=== PATIENT | male | born 1985 | race Caucasian/White ===

== ENCOUNTER 2017-11-02 14:01 | Emergency (ER) | payer OTHER ==
[2017-11-02] MEDS ORDERED: IBUPROFEN 400 MG TAB PO STA (14:33)
[2017-11-02] MEDS ORDERED: ACETAMINOPHEN TAB 500 MG TAB PO STA (14:33)
[2017-11-02] MEDS ORDERED: SODIUM CHLORIDE 0.9% 1,000 ML IV STA (14:33)
--- NOTE | 2017-11-02 14:33 | ED ---
Syncope HPI - General Chief Complaint: Syncope Stated Complaint: Fever Time Seen by Provider: 11/02/17 14:32 Source: patient Mode of arrival: ambulatory Limitations: no limitations - History of Present Illness Initial Comments: Patient presents with lightheadedness, near-syncope. He has a history of cardio neurogenic syncope. He also states that he was recently diagnosed with the flu. He is taking Tamiflu. He has had high fevers and chills for couple days. He has no belly or back pain. He has no chest pain or tightness. He has no focal weakness. He is tolerating orotate. He has no neck pain or stiffness. He has no pain or swelling in the arms or legs. - Related Data Home Medications Medication Instructions Recorded Confirmed Ondansetron HCl [Zofran] 4 mg PO TID PRN 11/02/17 11/02/17 Oseltamivir [Tamiflu] 75 mg PO BID 11/02/17 11/02/17 Allergies Allergy/AdvReac Type Severity Reaction Status Date / Time No Known Allergies Allergy Verified 11/02/17 15:00 Review of Systems ROS Statement: Those systems with pertinent positive or pertinent negative responses have been documented in the HPI. ROS Other: All systems not noted in ROS Statement are negative. Past Medical History Past Medical History: Heart Failure Additional Past Medical History / Comment(s): dinora robles. heart issues History of Any Multi-Drug Resistant Organisms: None Reported Past Surgical History: AICD, Pacemaker Past Psychological History: No Psychological Hx Reported Smoking Status: Never smoker Past Alcohol Use History: None Reported Past Drug Use History: None Reported General Exam Limitations: no limitations General appearance: alert, in no apparent distress Head exam: Present: atraumatic, normocephalic, normal inspection Eye exam: Present: normal appearance, PERRL, EOMI. Absent: scleral icterus, conjunctival injection, periorbital swelling ENT exam: Present: normal exam, mucous membranes moist Neck exam: Present: normal inspection. Absent: tenderness, meningismus, lymphadenopathy Respiratory exam: Present: normal lung sounds bilaterally. Absent: respiratory distress, wheezes, rales, rhonchi, stridor Cardiovascular Exam: Present: regular rate, normal rhythm, normal heart sounds. Absent: systolic murmur, diastolic murmur, rubs, gallop, clicks GI/Abdominal exam: Present: soft, normal bowel sounds. Absent: distended, tenderness, guarding, rebound, rigid Extremities exam: Present: normal inspection, full ROM, normal capillary refill. Absent: tenderness, pedal edema, joint swelling, calf tenderness Back exam: Present: normal inspection Neurological exam: Present: alert, oriented X3, CN II-XII intact Psychiatric exam: Present: normal affect, normal mood Skin exam: Present: warm, dry, intact, normal color. Absent: rash Course Vital Signs 11/02/17 11/02/17 14:11 15:18 Temperature 100.9 F H Pulse Rate 85 87 Respiratory 20 18 Rate Blood Pressure 126/75 124/74 O2 Sat by Pulse 96 96 Oximetry EKG Findings - EKG Comments: EKG Findings:: Twelve-lead EKG shows ventricular rate 82 bpm, slightly prolonged TX interval, normal QRS complex is, no ST elevation or depression, interpreted by me as sinus rhythm with first-degree AV block. Medical Decision Making - Medical Decision Making Patient is reevaluated by myself. His workup is negative. He is having no symptoms at this time. I offered him admission, but he states he would prefer to go home. He will follow-up as an outpatient. - Lab Data Result diagrams: 11/02/17 14:44 11/02/17 14:44 Lab Results 11/02/17 11/02/17 11/02/17 Range/Units 14:44 14:44 14:44 WBC 6.4 (3.8-10.6) k/uL RBC 5.42 (4.30-5.90) m/uL Hgb 15.8 (13.0-17.5) gm/dL Hct 44.4 (39.0-53.0) % MCV 81.9 (80.0-100.0) fL MCH 29.1 (25.0-35.0) pg MCHC 35.6 (31.0-37.0) g/dL RDW 13.4 (11.5-15.5) % Plt Count 188 (150-450) k/uL Neutrophils % 64 % Lymphocytes % 20 % Monocytes % 12 % Eosinophils % 1 % Basophils % 0 % Neutrophils # 4.1 (1.3-7.7) k/uL Lymphocytes # 1.3 (1.0-4.8) k/uL Monocytes # 0.8 (0-1.0) k/uL Eosinophils # 0.1 (0-0.7) k/uL Basophils # 0.0 (0-0.2) k/uL PT 10.4 (9.0-12.0) sec INR 1.1 (<1.2) APTT 25.1 (22.0-30.0) sec Sodium 141 (137-145) mmol/L Potassium 4.1 (3.5-5.1) mmol/L Chloride 100 (98-107) mmol/L Carbon Dioxide 26 (22-30) mmol/L Anion Gap 15 mmol/L BUN 16 (9-20) mg/dL Creatinine 0.85 (0.66-1.25) mg/dL Est GFR (CKD-EPI)AfAm >90 (>60 ml/min/1.73 sqM) Est GFR (CKD-EPI)NonAf >90 (>60 ml/min/1.73 sqM) Glucose 91 (74-99) mg/dL Calcium 9.1 (8.4-10.2) mg/dL Magnesium 1.8 (1.6-2.3) mg/dL Total Bilirubin 0.8 (0.2-1.3) mg/dL AST 29 (17-59) U/L ALT 43 (21-72) U/L Alkaline Phosphatase 67 (38-126) U/L Troponin I (0.000-0.034) ng/mL Total Protein 7.6 (6.3-8.2) g/dL Albumin 4.4 (3.5-5.0) g/dL Urine Color Urine Appearance (Clear) Urine pH (5.0-8.0) Ur Specific [place] (1.001-1.035) Urine Protein (Negative) Urine Glucose (UA) (Negative) Urine Ketones (Negative) Urine Blood (Negative) Urine Nitrite (Negative) Urine Bilirubin (Negative) Urine Urobilinogen (<2.0) mg/dL Ur Leukocyte Esterase (Negative) 11/02/17 11/02/17 Range/Units 14:44 15:13 WBC (3.8-10.6) k/uL RBC (4.30-5.90) m/uL Hgb (13.0-17.5) gm/dL Hct (39.0-53.0) % MCV (80.0-100.0) fL MCH (25.0-35.0) pg MCHC (31.0-37.0) g/dL RDW (11.5-15.5) % Plt Count (150-450) k/uL Neutrophils % % Lymphocytes % % Monocytes % % Eosinophils % % Basophils % % Neutrophils # (1.3-7.7) k/uL Lymphocytes # (1.0-4.8) k/uL Monocytes # (0-1.0) k/uL Eosinophils # (0-0.7) k/uL Basophils # (0-0.2) k/uL PT (9.0-12.0) sec INR (<1.2) APTT (22.0-30.0) sec Sodium (137-145) mmol/L Potassium (3.5-5.1) mmol/L Chloride (98-107) mmol/L Carbon Dioxide (22-30) mmol/L Anion Gap mmol/L BUN (9-20) mg/dL Creatinine (0.66-1.25) mg/dL Est GFR (CKD-EPI)AfAm (>60 ml/min/1.73 sqM) Est GFR (CKD-EPI)NonAf (>60 ml/min/1.73 sqM) Glucose (74-99) mg/dL Calcium (8.4-10.2) mg/dL Magnesium (1.6-2.3) mg/dL Total Bilirubin (0.2-1.3) mg/dL AST (17-59) U/L ALT (21-72) U/L Alkaline Phosphatase (38-126) U/L Troponin I <0.012 (0.000-0.034) ng/mL Total Protein (6.3-8.2) g/dL Albumin (3.5-5.0) g/dL Urine Color Yellow Urine Appearance Clear (Clear) Urine pH 5.5 (5.0-8.0) Ur Specific [place] 1.033 (1.001-1.035) Urine Protein Trace H (Negative) Urine Glucose (UA) Negative (Negative) Urine Ketones Negative (Negative) Urine Blood Negative (Negative) Urine Nitrite Negative (Negative) Urine Bilirubin Negative (Negative) Urine Urobilinogen 2.0 (<2.0) mg/dL Ur Leukocyte Esterase Negative (Negative) Disposition Clinical Impression: Vasovagal syncope, Dehydration Disposition: HOME SELF-CARE Condition: Good Instructions: Viral Syndrome (ED) Is patient prescribed a controlled substance at d/c from ED?: No Referrals: Jose Farooq DO [Primary Care Provider] - 1-2 days Casimiro Francis MD [STAFF PHYSICIAN] - 1-2 days
[2017-11-02 15:00] LABS: Basophils % (A) 0 %; Eosinophils # (A) 0.1 k/uL (0-0.7); Eosinophils % (A) 1 %; HCT 44.4 % (39.0-53.0); HGB 15.8 gm/dL (13.0-17.5); Lymphocytes # (A) 1.3 k/uL (1.0-4.8); Lymphocytes % (A) 20 %; MCH 29.1 pg (25.0-35.0); MCHC 35.6 g/dL (31.0-37.0); MCV 81.9 fL (80.0-100.0); Mean Platelet Volume 7.6; Monocytes # (A) 0.8 k/uL (0-1.0); Monocytes % (A) 12 %; Neutrophils # (A) 4.1 k/uL (1.3-7.7); Neutrophils % (A) 64 %; Platelet Count 188 k/uL (150-450); RBC 5.42 m/uL (4.30-5.90); RDW 13.4 % (11.5-15.5); WBC 6.4 k/uL (3.8-10.6)
[2017-11-02 15:08] LABS: INR 1.1 (<1.2); Partial Thromboplastin Time 25.1 sec (22.0-30.0); Prothrombin Time 10.4 sec (9.0-12.0)
[2017-11-02 15:19] VITALS: RESP 18
[2017-11-02 15:22] LABS: Appearance,Urine Clear (Clear); Bilirubin,Urine Negative (Negative); Blood,Urine Negative (Negative); Color,Urine Yellow; Glucose,Urine (UA) Negative (Negative); Ketones,Urine Negative (Negative); Leukocyte Esterase,Urine Negative (Negative); Nitrite,Urine Negative (Negative); PH, Urine 5.5 (5.0-8.0); Protein,Urine Trace (Negative); Specific Gravity,Urine 1.033 (1.001-1.035)
--- NOTE | 2017-11-02 15:27 | XR ---
EXAMINATION TYPE: XR chest 2V DATE OF EXAM: 11/02/2017 COMPARISON: NONE HISTORY: Chest pain, syncope and cough TECHNIQUE: Frontal and lateral views of the chest are obtained. FINDINGS: There is no focal air space opacity, pleural effusion, or pneumothorax seen. The cardiac silhouette size is within normal limits. Pacemaker is present in the right pectoral region, leads are present in the right atrium and ventricle. There may be a slight spinal curvature. The osseous stru ctures are intact. IMPRESSION: No acute cardiopulmonary process.
[2017-11-02 15:35] LABS: ALT 43 U/L (21-72); AST 29 U/L (17-59); Albumin 4.4 g/dL (3.5-5.0); Alkaline Phosphatase 67 U/L (38-126); Anion Gap 15 mmol/L; Blood Urea Nitrogen 16 mg/dL (9-20); Calcium 9.1 mg/dL (8.4-10.2); Carbon Dioxide 26 mmol/L (22-30); Chloride 100 mmol/L (98-107); Glucose 91 mg/dL (74-99); Magnesium 1.8 mg/dL (1.6-2.3); Potassium 4.1 mmol/L (3.5-5.1); Sodium 141 mmol/L (137-145); Total Bilirubin 0.8 mg/dL (0.2-1.3); Total Protein 7.6 g/dL (6.3-8.2)
[2017-11-02 16:20] VITALS: BP 122/68; PULSE 75; TEMP 97.6
== END 2017-11-02 16:06 | disposition home or self-care (01) ==
LOC: EC 14:01
DX: E86.0 Dehydration (principal); R55 Syncope and collapse; R50.9 Fever, unspecified; R42 Dizziness and giddiness; Z79.899 Other long term (current) drug therapy
CPT/HCPCS: 36415; 71046; 80053; 81003; 83735; 84484; 85025; 85610; 85730; 93005; 96360; 99284

== ENCOUNTER → 2018-09-20 | Outpatient (CLI) | payer OTHER ==
[2018-09-20 17:19] LABS: Anion Gap 9.9 mmol/L (4.00-12.00); Carbon Dioxide 30.1 mmol/L (21.6-31.8); Potassium 4.1 mmol/L (3.5-5.5)
== END | disposition home or self-care (01) ==
LOC: LABWHC1 10:08
PROVIDERS: ATTEND Otolaryngology
DX: Z51.81 Encounter for therapeutic drug level monitoring (principal); Z79.899 Other long term (current) drug therapy
CPT/HCPCS: 36415; 80051

== ENCOUNTER 2018-09-22 22:15 | Emergency (ER) | payer OTHER ==
[2018-09-22 22:25] VITALS: RESP 18; TEMP 98.4
--- NOTE | 2018-09-22 22:47 | ED ---
General Adult HPI - General Chief complaint: Abdominal Pain Stated complaint: Abd Pain Time Seen by Provider: 09/22/18 22:36 Source: patient, RN notes reviewed Mode of arrival: ambulatory Limitations: no limitations - History of Present Illness Initial comments: 33-year-old male presents emergency Department chief complaint of right-sided rib pain. Patient states that a fall a few weeks ago when he fell on his back and ice. Patient states he had right-sided rib pain but was manageable. Patient states pain is been increasing last few days especially with movement and deep inspiration. Patient states he tried to lay in the bathroom to alleviate symptoms states it yellow coughed and states he felt a large pop states she's had extreme pain on his right lateral ribs. Patient states that it's worse with movement worse with deep inspiration. Patient denies any abdominal pain including nausea vomiting diarrhea constipation. Patient denies any change in bowel habits including melena or hematochezia. No dysuria no hematuria. Patient has not taken anything today for the pain. - Related Data Home Medications Medication Instructions Recorded Confirmed Triamterene-Hctz 37.5-25Mg 1 cap PO DAILY 09/22/18 09/22/18 [Dyazide 37.5-25 Capsule] Previous Rx's Medication Instructions Recorded Ibuprofen [Motrin] 600 mg PO Q8HR PRN #30 tab 09/22/18 Allergies Allergy/AdvReac Type Severity Reaction Status Date / Time egg AdvReac Nausea & Verified 09/22/18 22:39 Vomiting Review of Systems ROS Statement: Those systems with pertinent positive or pertinent negative responses have been documented in the HPI. ROS Other: All systems not noted in ROS Statement are negative. Past Medical History Past Medical History: Heart Failure Additional Past Medical History / Comment(s): dinora robles. heart issues History of Any Multi-Drug Resistant Organisms: None Reported Past Surgical History: AICD, Pacemaker Past Psychological History: No Psychological Hx Reported Smoking Status: Never smoker Past Alcohol Use History: None Reported Past Drug Use History: None Reported General Exam Limitations: no limitations General appearance: alert, in no apparent distress Head exam: Present: atraumatic, normocephalic, normal inspection Eye exam: Present: normal appearance, PERRL, EOMI. Absent: scleral icterus, conjunctival injection, periorbital swelling ENT exam: Present: normal exam, normal oropharynx, mucous membranes moist Neck exam: Present: normal inspection, full ROM. Absent: tenderness, meningismus, lymphadenopathy Respiratory exam: Present: normal lung sounds bilaterally, chest wall tenderness (Monitor's right anterior lateral rib). Absent: respiratory distress, wheezes, rales, rhonchi, stridor Cardiovascular Exam: Present: regular rate, normal rhythm, normal heart sounds. Absent: systolic murmur, diastolic murmur, rubs, gallop, clicks GI/Abdominal exam: Present: soft, normal bowel sounds. Absent: distended, tenderness, guarding, rebound, rigid Back exam: Absent: CVA tenderness (R), CVA tenderness (L) Skin exam: Present: warm, dry, intact, normal color. Absent: rash Course Vital Signs 09/22/18 22:21 Temperature 98.4 F Pulse Rate 90 Respiratory 18 Rate Blood Pressure 134/92 O2 Sat by Pulse 96 Oximetry Medical Decision Making - Medical Decision Making 33-year-old male presented for right sided rib pain. Patient have a fall 2 weeks ago which she's had pain ever since to worsen after coughing tonight. There is no evidence of pneumothorax. Patient clinically represents rib fracture though no iris or fracture on x-ray. Patient we discharged with pain medication and close follow-up. Return parameters were discussed. Disposition Clinical Impression: Rib injury Disposition: HOME SELF-CARE Condition: Stable Instructions (If sedation given, give patient instructions): Rib Fracture (ED) Additional Instructions: Please return to the Emergency Department if symptoms worsen or any other concerns. Prescriptions: Ibuprofen [Motrin] 600 mg PO Q8HR PRN #30 tab PRN Reason: Pain Is patient prescribed a controlled substance at d/c from ED?: No Referrals: Jose Farooq DO [Primary Care Provider] - 1-2 days Time of Disposition: 23:04
--- NOTE | 2018-09-22 23:01 | XR ---
EXAM: XR Right Ribs and AP Chest, 3 or More Views CLINICAL HISTORY: ITS.REASON XR Reason: Pain TECHNIQUE: Frontal and oblique views of the right ribs and frontal view of the chest. COMPARISON: No relevant prior studies available. FINDINGS: Lungs: Unremarkable. No consolidation. Pleural space: Unremarkable. No pneumothorax. Heart: Unremarkable. No cardiomegaly. Mediastinum: Unremarkable. Bones/joints: Unremarkable. No acute fracture. IMPRESSION: Normal right rib x-rays.
[2018-09-22] MEDS: ACET/COD 300 MG/30 MG STARTER PACK 6 TAB BTL PO STA (23:18)
[2018-09-22 23:24] VITALS: BP 137/82; PULSE 84
== END 2018-09-22 23:23 | disposition home or self-care (01) ==
LOC: EC 22:15
DX: S29.9XXA Unspecified injury of thorax, initial encounter (principal); I50.9 Heart failure, unspecified; Z79.899 Other long term (current) drug therapy; Z91.012 Allergy to eggs; Z95.810 Presence of automatic (implantable) cardiac defibrillator; W19.XXXA Unspecified fall, initial encounter; Y93.29 Activity, other involving ice and snow
CPT/HCPCS: 99284

== ENCOUNTER 2019-06-29 16:54 | Inpatient (IN) | payer OTHER ==
[2019-06-29] MEDS ORDERED: SODIUM CHLORIDE 0.9% 1,000 ML IV STA (17:01)
[2019-06-29 17:18] LABS: Basophils # (A) 0.2 k/uL (0-0.2); Basophils % (A) 2 %; Eosinophils # (A) 0.2 k/uL (0-0.7); Eosinophils % (A) 3 %; HCT 43.3 % (39.0-53.0); HGB 15.7 gm/dL (13.0-17.5); Lymphocytes # (A) 2.1 k/uL (1.0-4.8); Lymphocytes % (A) 24 %; MCH 30.5 pg (25.0-35.0); MCHC 36.2 g/dL (31.0-37.0); MCV 84.3 fL (80.0-100.0); Mean Platelet Volume 8.3; Monocytes # (A) 0.4 k/uL (0-1.0); Monocytes % (A) 5 %; Neutrophils # (A) 5.8 k/uL (1.3-7.7); Neutrophils % (A) 65 %; Platelet Count 226 k/uL (150-450); RBC 5.14 m/uL (4.30-5.90); RDW 13.1 % (11.5-15.5); WBC 8.9 k/uL (3.8-10.6)
[2019-06-29 17:31] LABS: D-Dimer 0.22 mg/L FEU (<0.60); Partial Thromboplastin Time 22.5 sec (22.0-30.0); Prothrombin Time 10.3 sec (9.0-12.0)
[2019-06-29 17:36] LABS: ALT 36 U/L (4-49); AST 28 U/L (17-59); African American GFR (CKD) >90 (>60 ml/min/1.73 sqM); Albumin 4.5 g/dL (3.5-5.0); Alkaline Phosphatase 56 U/L (38-126); Anion Gap 9 mmol/L; Blood Urea Nitrogen 23 mg/dL (9-20); Calcium 9.5 mg/dL (8.4-10.2); Carbon Dioxide 26 mmol/L (22-30); Chloride 104 mmol/L (98-107); Creatine Kinase 115 U/L (55-170); Glucose 155 mg/dL (74-99); Non-African American GFR(CKD) >90 (>60 ml/min/1.73 sqM); Phosphorus 4.2 mg/dL (2.5-4.5); Sodium 139 mmol/L (137-145); Total Bilirubin 0.5 mg/dL (0.2-1.3); Total Protein 7.9 g/dL (6.3-8.2)
--- NOTE | 2019-06-29 17:40 | ED ---
Syncope HPI - General Chief Complaint: Syncope Stated Complaint: Syncope Time Seen by Provider: 06/29/19 17:01 Source: EMS, RN notes reviewed, old records reviewed Mode of arrival: EMS Limitations: no limitations - History of Present Illness Initial Comments: This is a 34-year-old male here for evaluation of syncopal event patient has a prolonged history of neurocardiogenic multiple syncopal episodes year. Patient has chest pain involved no current chest pain. No recent travel history no sick contacts. No pain in the legs he states he believes he was swinging uneventfully was also MD Complaint: loss of consciousness, collapsed -: hour(s) Prodromal Symptoms: palpitations, shortness of breath, diaphoresis -: second(s) (unknown) Witnessed: yes - by bystander Injuries Sustained Associated with Event: None Current Symptoms: back to baseline History: previous syncopal episode, pacemaker Context: during exertion (after shower) Treatments Prior to Arrival: none - Related Data Home Medications Medication Instructions Recorded Confirmed Triamterene-Hctz 37.5-25Mg 1 cap PO DAILY 09/22/18 06/29/19 [Dyazide 37.5-25 Capsule] Ibuprofen [Motrin Ib] 400 mg PO Q6H PRN 06/29/19 06/29/19 Loratadine [Claritin] 10 mg PO DAILY PRN 06/29/19 06/29/19 Allergies Allergy/AdvReac Type Severity Reaction Status Date / Time egg AdvReac Nausea & Verified 06/29/19 18:50 Vomiting Review of Systems ROS Statement: Those systems with pertinent positive or pertinent negative responses have been documented in the HPI. ROS Other: All systems not noted in ROS Statement are negative. Past Medical History Past Medical History: Heart Failure Additional Past Medical History / Comment(s): dinora robles. heart issues History of Any Multi-Drug Resistant Organisms: None Reported Past Surgical History: AICD, Pacemaker Past Psychological History: No Psychological Hx Reported Smoking Status: Never smoker Past Alcohol Use History: None Reported Past Drug Use History: None Reported General Exam Limitations: no limitations General appearance: alert, in no apparent distress Head exam: Present: atraumatic, normocephalic, normal inspection Eye exam: Present: normal appearance, PERRL, EOMI. Absent: scleral icterus, conjunctival injection, periorbital swelling ENT exam: Present: normal exam, mucous membranes moist Neck exam: Present: normal inspection. Absent: tenderness, meningismus, lymphadenopathy Respiratory exam: Present: normal lung sounds bilaterally. Absent: respiratory distress, wheezes, rales, rhonchi, stridor Cardiovascular Exam: Present: regular rate, normal rhythm, normal heart sounds. Absent: systolic murmur, diastolic murmur, rubs, gallop, clicks GI/Abdominal exam: Present: soft, normal bowel sounds. Absent: distended, tenderness, guarding, rebound, rigid Extremities exam: Present: normal inspection, full ROM, normal capillary refill. Absent: tenderness, pedal edema, joint swelling, calf tenderness Back exam: Present: normal inspection Neurological exam: Present: alert, oriented X3, CN II-XII intact Psychiatric exam: Present: normal affect, normal mood Skin exam: Present: warm, dry, intact, normal color. Absent: rash Course Vital Signs 06/29/19 06/29/19 16:59 17:01 Temperature 97.1 F L Pulse Rate 76 Pulse Rate [ 76 [employer] Rep[employer]ician ] Respiratory 16 Rate Blood Pressure 128/72 O2 Sat by Pulse 98 Oximetry - Reevaluation(s) Reevaluation #1: 06/29/19 17:47 Medical record is reviewed Reevaluation #2: 06/29/19 18:54 Patient is without recurrence. Syncopal event Reevaluation #3: 06/29/19 18:54 Pacemaker was interrogated here in the ER doesn't look like patient is experi encing episodes of ventricular tachycardia - Consultations Consultation #1: Social with Dr. Block who was agreeable for admission EKG Findings - EKG Comments: EKG Findings:: EKG shows sinus rhythm rate of 71, OR 232, QRS 232, QTC 450 Medical Decision Making - Medical Decision Making 32 male here with syncopal event. Possibly related to ventricular tachycardia. Patient will be admitted for cardiac evaluation telemetry and further management - Lab Data Result diagrams: 06/29/19 17:01 06/29/19 17: Lab Results 06/29/19 06/29/19 06/29/19 Range/Units 17:01 17: 17: WBC 8.9 (3.8-10.6) k/uL RBC 5.14 (4.30-5.90) m/uL Hgb 15.7 (13.0-17.5) gm/dL Hct 43.3 (39.0-53.0) % MCV 84.3 (80.0-100.0) fL MCH 30.5 (25.0-35.0) pg MCHC 36.2 (31.0-37.0) g/dL RDW 13.1 (11.5-15.5) % Plt Count 226 (150-450) k/uL Neutrophils % 65 % Lymphocytes % 24 % Monocytes % 5 % Eosinophils % 3 % Basophils % 2 % Neutrophils # 5.8 (1.3-7.7) k/uL Lymphocytes # 2.1 (1.0-4.8) k/uL Monocytes # 0.4 (0-1.0) k/uL Eosinophils # 0.2 (0-0.7) k/uL Basophils # 0.2 (0-0.2) k/uL PT 10.3 (9.0-12.0) sec INR 1.0 (<1.2) APTT 22.5 (22.0-30.0) sec D-Dimer 0.22 (<0.60) mg/L FEU Sodium 139 (137-145) mmol/L Potassium 4.0 (3.5-5.1) mmol/L Chloride 104 (98-107) mmol/L Carbon Dioxide 26 (22-30) mmol/L Anion Gap 9 mmol/L BUN 23 H (9-20) mg/dL Creatinine 0.91 (0.66-1.25) mg/dL Est GFR (CKD-EPI)AfAm >90 (>60 ml/min/1.73 sqM) Est GFR (CKD-EPI)NonAf >90 (>60 ml/min/1.73 sqM) Glucose 155 H (74-99) mg/dL Calcium 9.5 (8.4-10.2) mg/dL Phosphorus 4.2 (2.5-4.5) mg/dL Magnesium 2.0 (1.6-2.3) mg/dL Total Bilirubin 0.5 (0.2-1.3) mg/dL AST 28 (17-59) U/L ALT 36 (4-49) U/L Alkaline Phosphatase 56 (38-126) U/L Creatine Kinase 115 (55-170) U/L Troponin I (0.000-0.034) ng/mL NT-Pro-B Natriuret Pep pg/mL Total Protein 7.9 (6.3-8.2) g/dL Albumin 4.5 (3.5-5.0) g/dL 06/29/19 06/29/19 Range/Units 17:01 17:01 WBC (3.8-10.6) k/uL RBC (4.30-5.90) m/uL Hgb (13.0-17.5) gm/dL Hct (39.0-53.0) % MCV (80.0-100.0) fL MCH (25.0-35.0) pg MCHC (31.0-37.0) g/dL RDW (11.5-15.5) % Plt Count (150-450) k/uL Neutrophils % % Lymphocytes % % Monocytes % % Eosinophils % % Basophils % % Neutrophils # (1.3-7.7) k/uL Lymphocytes # (1.0-4.8) k/uL Monocytes # (0-1.0) k/uL Eosinophils # (0-0.7) k/uL Basophils # (0-0.2) k/uL PT (9.0-12.0) sec INR (<1.2) APTT (22.0-30.0) sec D-Dimer (<0.60) mg/L FEU Sodium (137-145) mmol/L Potassium (3.5-5.1) mmol/L Chloride (98-107) mmol/L Carbon Dioxide (22-30) mmol/L Anion Gap mmol/L BUN (9-20) mg/dL Creatinine (0.66-1.25) mg/dL Est GFR (CKD-EPI)AfAm (>60 ml/min/1.73 sqM) Est GFR (CKD-EPI)NonAf (>60 ml/min/1.73 sqM) Glucose (74-99) mg/dL Calcium (8.4-10.2) mg/dL Phosphorus (2.5-4.5) mg/dL Magnesium (1.6-2.3) mg/dL Total Bilirubin (0.2-1.3) mg/dL AST (17-59) U/L ALT (4-49) U/L Alkaline Phosphatase (38-126) U/L Creatine Kinase (55-170) U/L Troponin I <0.012 (0.000-0.034) ng/mL NT-Pro-B Natriuret Pep 59 pg/mL Total Protein (6.3-8.2) g/dL Albumin (3.5-5.0) g/dL Critical Care Time Critical Care Time: Yes Total Critical Care Time: 31 Disposition Clinical Impression: Syncope, Ventricular tachycardia Disposition: ADMITTED IP TO THIS [facility] Condition: Undetermined Is patient prescribed a controlled substance at d/c from ED?: No Referrals: Jose Farooq DO [Primary Care Provider] - 1-2 days
[2019-06-29] MEDS ORDERED: METOPROLOL TARTRATE 25 MG TAB PO SCH (21:00)
[2019-06-29 21:31] VITALS: RESP 18
[2019-06-30] MEDS ORDERED: ASPIRIN 325 MG TAB PO SCH (09:00)
[2019-06-30] MEDS ORDERED: ATORVASTATIN 80 MG TAB PO SCH (09:00)
[2019-06-30] MEDS ORDERED: TRIAMTERENE-HCTZ 37.5-25MG 1 EACH CAP PO SCH (09:00)
--- NOTE | 2019-06-30 10:56 | P.HPIM ---
History of Present Illness 32-year-old male with a known history of neurogenic syncope came in after a syncopal episode which was preceded by extreme lightheadedness for about 20 minutes. Patient has a pacemaker because of his neurocardiogenic syncope. Patient does have Mnire's disease as well for which patient is on the diuretic therapy which was recently increased couple weeks ago to twice a day by sample sawyer because of his elevated blood pressure in the clinic. His blood pressures normal here. But I believe this may have contributed to his syncope. His normal sinus rhythm on the EKG that was done here and patient is normal sinus rhythm on the telemetry. Patient has a first-degree AV block which is well-known and the patient already has a pacemaker. Patient pacemaker is being interrogated and if required patient will undergo echocardiogram if cardiology believes he will need one. His syncope is mostly because of hypotension from his increased diuretic therapy. Patient was asked to check his blood pressure twice a day for possible with a manual blood pressure cuff and document the readings and extensive counseling regarding checking the blood pressure was provided. Asked him to maintain a blood pressure diary and take it to PCP. Cardiology. Patient will be switched back to his previous dose of diuretics. Review of Systems REVIEW OF SYSTEMS: CONSTITUTIONAL: No fever, no malaise, no fatigue. HEENT: No recent visual problems or hearing problems. Denied any sore throat. CARDIOVASCULAR: No chest pain, orthopnea, PND, no palpitations. PULMONARY: No shortness of breath, no cough, no hemoptysis. GASTROINTESTINAL: No diarrhea, no nausea, no vomiting, no abdominal pain. NEUROLOGICAL: No headaches, no weakness, no numbness. HEMATOLOGICAL: Denies any bleeding or petechiae. GENITOURINARY: Denies any burning micturition, frequency, or urgency. MUSCULOSKELETAL/RHEUMATOLOGICAL: Denies any joint pain, swelling, or any muscle pain. ENDOCRINE: Denies any polyuria or polydipsia. The rest of the 14-point review of systems is negative. Past Medical History Past Medical History: Heart Failure Additional Past Medical History / Comment(s): meniere's disease which contributes to vertigo and history of falls. 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 denies history of heart failure. VRI-Rsjryn-Unillouyy purpura-affected intestines at the age of 9, intestines were tangled -resolved on its own after a few months. This caused the damage in his heart which lead to a pacemaker in 2001 with device change in 2007 ([facility]). Theorized by doctors HSP brought on by strep throat. History of Any Multi-Drug Resistant Organisms: None Reported Past Surgical History: Pacemaker Additional Past Surgical History / Comment(s): pacemaker 2001 with device change in 2007 [facility]. Oseas states he does not have an AICD Past Anesthesia/Blood Transfusion Reactions: No Reported Reaction Additional Past Anesthesia/Blood Transfusion Reaction / Comment(s): no previous blood transfusions Type of Cardiac Device: Permanent Pacemaker Device Placement Date:: 09/2007 Past Psychological History: No Psychological Hx Reported Smoking Status: Never smoker Past Alcohol Use History: None Reported Past Drug Use History: None Reported - Past Family History Father Family Medical History: Diabetes Mellitus Brother(s) Family Medical History: Diabetes Mellitus Mother Family Medical History: Deep Vein Thrombosis (DVT) Sister(s) Additional Family Medical History / Comment(s): vtach Medications and Allergies Home Medications Medication Instructions Recorded Confirmed Type Triamterene-Hctz 37.5-25Mg 1 cap PO DAILY 09/22/18 06/29/19 History [Dyazide 37.5-25 Capsule] Ibuprofen [Motrin Ib] 400 mg PO Q6H PRN 06/29/19 06/29/19 History Loratadine [Claritin] 10 mg PO DAILY PRN 06/29/19 06/29/19 History Allergies Allergy/AdvReac Type Severity Reaction Status Date / Time egg AdvReac Nausea & Verified 06/29/19 18:50 Vomiting Physical Exam Vitals: Vital Signs Temp Pulse Pulse Resp BP BP Pulse Ox 06/30/19 07:41 97.7 F 67 18 126/77 96 06/30/19 04:00 97.4 F L 66 18 121/72 99 06/29/19 23:31 98 F 63 18 112/57 97 06/29/19 20:31 97.4 F L 69 18 140/84 97 06/29/19 19:04 98.3 F 76 16 128/69 98 06/29/19 17:01 76 06/29/19 16:59 97.1 F L 76 16 128/72 98 Intake and Output 06/29/19 06/30/19 06/30/19 22:59 06:59 14:59 Intake Total 118 Balance 118 Intake: Oral 118 Other: Voiding Method Toilet # Voids 1 6 Weight 114.305 kg 111.8 kg PHYSICAL EXAMINATION: GENERAL: The patient is alert and oriented x3, not in any acute distress. Obese HEENT: Pupils are round and equally reacting to light. EOMI. No scleral icterus. No conjunctival pallor. Normocephalic, atraumatic. No pharyngeal erythema. No thyromegaly. CARDIOVASCULAR: S1 and S2 present. No murmurs, rubs, or gallops. PULMONARY: Chest is clear to auscultation, no wheezing or crackles. ABDOMEN: Soft, nontender, nondistended, normoactive bowel sounds. No palpable organomegaly. MUSCULOSKELETAL: No joint swelling or deformity. EXTREMITIES: No cyanosis, clubbing, or pedal edema. NEUROLOGICAL: Gross neurological examination did not reveal any focal deficits. SKIN: No rashes. Results CBC & Chem 7: 06/29/19 17:01 06/29/19 17:01 Labs: Abnormal Lab Results - Last 24 Hours (Table) 06/29/19 Range/Units 17:01 BUN 23 H (9-20) mg/dL Glucose 155 H (74-99) mg/dL Thrombosis Risk Factor Assmnt - Choose All That Apply Any of the Below Risk Factors Present?: No Other Risk Factors: Yes Each Risk Factor Represents 3 Points: Family history of DVT/PE Other congenital or acquired thrombophilia - If yes, enter type in comment: No Thrombosis Risk Factor Assessment Total Risk Factor Score: 3 Thrombosis Risk Factor Assessment Level: Moderate Risk Assessment and Plan Plan: -Syncope most probably related to low blood pressure. Patient will be switched back to his previous dose of diuretic therapy. Patient undergo pacemaker evaluation. Cardiology evaluated the patient after pacemaker evaluation of there are no significant issues with his heart rhythm patient will be discharged today. -History of Mnire's disease for which patient is on diuretics which she will continue -Hypertension -History of Henoch-Schnlein purpura -First-degree AV block patient has a pacemaker
--- NOTE | 2019-06-30 10:56 | P.DS ---
Providers Date of admission: 06/29/19 18:46 Attending physician: Tatyana Block Consults: 06/29/19 18:46 Consult Physician Urgent Consulting Provider: Won Srinivasan Consult Reason/Comments: VT Do you want consulting provider notified?: Yes Primary care physician: Jose Farooq Hospital Course: Please of her dementia for further details Patient Condition at Discharge: Undetermined Plan - Discharge Summary New Discharge Prescriptions: Continue Triamterene-Hctz 37.5-25Mg [Dyazide 37.5-25 Capsule] 1 cap PO DAILY Loratadine [Claritin] 10 mg PO DAILY PRN PRN Reason: Cold Symptoms Ibuprofen [Motrin Ib] 400 mg PO Q6H PRN PRN Reason: Pain Discharge Medication List Triamterene-Hctz 37.5-25Mg [Dyazide 37.5-25 Capsule] 1 cap PO DAILY 09/22/18 [History] Ibuprofen [Motrin Ib] 400 mg PO Q6H PRN 06/29/19 [History] Loratadine [Claritin] 10 mg PO DAILY PRN 06/29/19 [History] Follow up Appointment(s)/Referral(s): Jose Farooq DO [Primary Care Provider] - 3 Days Discharge Disposition: HOME SELF-CARE
[2019-06-30 12:19] VITALS: BP 131/67; PULSE 56; TEMP 97.9
--- NOTE | 2019-06-30 14:11 | P.CRDCN ---
History of Present Illness History of present illness: HISTORY OF PRESENTING ILLNESS This is a pleasant 34-year-old male past medical history significant for neurocardiogenic syncope status post permanent pacemaker implantation and Mnire's disease. He follows in the office with Dr. Srinivasan. We have been asked to see in consultation for syncope. He states yesterday he was at home and he took a 20 minute hot bath. Upon getting out of the bathtub he started feeling acutely lightheaded like he was going to pass out. He states he was on the phone with his during this episode. He denies having symptoms of chest pain, shortness of breath or palpitations throughout this episode. He did sit down at one point because he didn't think he was close to passing out. When she sat down and he did eventually pass out falling forward into the shower. According to the patient and the who was on the phone with him he was out for approximately 30 seconds. Once he came to he felt diaphoretic and felt palpitations. Since arriving at the hospital she had no further symptoms of feeling lightheaded. Blood pressure on arrival was stable. He is seen and examined resting comfortably in bed in no acute distress. DIAGNOSTICS EKG reveals sinus mechanism with first-degree AV block. Laboratory reviewed, CBC unremarkable, d-dimer 0.22, sodium 139, potassium 4.0, creatinine 0.91, magnesium 2.0, cardiac enzymes negative 3 and proBNP 59. Current cardiac medications include Dyazide 37.5/25 mg daily. REVIEW OF SYSTEMS At the time of my exam: CONSTITUTIONAL: Denies fever or chills. CARDIOVASCULAR: Denies chest pain, shortness of breath, orthopnea, PND or palpitations. RESPIRATORY: Denies cough. GASTROINTESTINAL: Denies abdominal pain, diarrhea, constipation, nausea or vomiting. MUSCULOSKELETAL: Denies myalgias. NEUROLOGIC: Denies numbness, tingling or weakness. ENDOCRINE: Denies fatigue, weight change, polydipsia or polyurina. GENITOURINARY: Denies burning, hematuria or urgency with micturation. HEMATOLOGIC: Denies history of anemia or bleeding. PHYSICAL EXAMINATION Blood pressure 131/67 heart rate 56 afebrile and maintaining oxygen saturation on room air. CONSTITUTIONAL: No apparent distress. HEENT: Head is normocephalic. Pupils are equal, round. Sclerae anicteric. Mucous membranes of the mouth are moist. No JVD. No carotid bruit. CHEST EXAMINATION: Lungs are clear to auscultation. No chest wall tenderness is noted on palpation or with deep breathing. HEART EXAMINATION: Regular rate and rhythm. S1, S2 heard. No murmurs, gallops or rub. ABDOMEN: Soft, nontender. Positive bowel sounds. EXTREMITIES: 2+ peripheral pulses, no lower extremity edema and no calf tenderness. NEUROLOGIC EXAMINATION: Patient is awake, alert and oriented x3. ASSESSMENT Syncope History of neurocardiogenic syncope status post permanent pacemaker implantation Mnire's disease, maintained on Dyazide. He has been asymptomatic for approximately 10 months since beginning this medication PLAN An acute coronary event has been ruled out. Pacemaker interrogation reveals no evidence of arrhythmia. Telemetry tracings have been unremarkable. There is no acute arrhythmias noted for hospitalization or on pacemaker interrogation. D-dimer unremarkable. Syncope could be related to vasovagal reaction or hypotension considering he had just taken a hot bath. Follow-up in the office with Dr. Srinivasan upon discharge. Thank you kindly for this consultation. Nurse Practitioner note has been reviewed, I agree with a documented findings and plan of care. Patient was seen and examined. Past Medical History Past Medical History: Heart Failure Additional Past Medical History / Comment(s): meniere's disease which contributes to vertigo and history of falls. 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 denies history of heart failure. [id number]-Tcjaep-[id number] purpura-affected intestines at the age of 9, intestines were tangled -resolved on its own after a few months. This caused the damage in his heart which lead to a pacemaker in 2001 with device change in 2007 ([facility]). Theorized by doctors HSP brought on by strep throat. History of Any Multi-Drug Resistant Organisms: None Reported Past Surgical History: Pacemaker Additional Past Surgical History / Comment(s): pacemaker 2001 with device change in 2007 [facility]. Oseas states he does not have an AICD Past Anesthesia/Blood Transfusion Reactions: No Reported Reaction Additional Past Anesthesia/Blood Transfusion Reaction / Comment(s): no previous blood transfusions Type of Cardiac Device: Permanent Pacemaker Device Placement Date:: 09/2007 Past Psychological History: No Psychological Hx Reported Smoking Status: Never smoker Past Alcohol Use History: None Reported Past Drug Use History: None Reported - Past Family History Father Family Medical History: Diabetes Mellitus Brother(s) Family Medical History: Diabetes Mellitus Mother Family Medical History: Deep Vein Thrombosis (DVT) Sister(s) Additional Family Medical History / Comment(s): vtach Medications and Allergies Home Medications Medication Instructions Recorded Confirmed Type Triamterene-Hctz 37.5-25Mg 1 cap PO DAILY 09/22/18 06/29/19 History [Dyazide 37.5-25 Capsule] Ibuprofen [Motrin Ib] 400 mg PO Q6H PRN 06/29/19 06/29/19 History Loratadine [Claritin] 10 mg PO DAILY PRN 06/29/19 06/29/19 History Allergies Allergy/AdvReac Type Severity Reaction Status Date / Time egg AdvReac Nausea & Verified 06/29/19 18:50 Vomiting Physical Exam Vitals: Vital Signs Temp Pulse Pulse Resp BP BP Pulse Ox 06/30/19 12:00 97.9 F 56 L 18 131/67 94 L 06/30/19 07:41 97.7 F 67 18 126/77 96 06/30/19 04:00 97.4 F L 66 18 121/72 99 06/29/19 23:31 98 F 63 18 112/57 97 06/29/19 20:31 97.4 F L 69 18 140/84 97 06/29/19 19:04 98.3 F 76 16 128/69 98 06/29/19 17:01 76 06/29/19 16:59 97.1 F L 76 16 128/72 98 Intake and Output 06/29/19 06/30/19 06/30/19 22:59 06:59 14:59 Intake Total 718 Balance 718 Intake: Oral 718 Other: Voiding Method Toilet # Voids 1 6 3 Weight 114.305 kg 111.8 kg Results 06/29/19 17:01 06/29/19 17:01 Cardiac Enzymes 06/29/19 06/29/19 06/29/19 Range/Units 17:01 17:01 23:02 AST 28 (17-59) U/L Troponin I <0.012 <0.012 (0.000-0.034) ng/mL 06/30/19 Range/Units 05:51 AST (17-59) U/L Troponin I <0.012 (0.000-0.034) ng/mL Coagulation 06/29/19 Range/Units 17:01 PT 10.3 (9.0-12.0) sec APTT 22.5 (22.0-30.0) sec CBC 06/29/19 Range/Units 17:01 WBC 8.9 (3.8-10.6) k/uL RBC 5.14 (4.30-5.90) m/uL Hgb 15.7 (13.0-17.5) gm/dL Hct 43.3 (39.0-53.0) % Plt Count 226 (150-450) k/uL Comprehensive Metabolic Panel 06/29/19 Range/Units 17:01 Sodium 139 (137-145) mmol/L Potassium 4.0 (3.5-5.1) mmol/L Chloride 104 (98-107) mmol/L Carbon Dioxide 26 (22-30) mmol/L BUN 23 H (9-20) mg/dL Creatinine 0.91 (0.66-1.25) mg/dL Glucose 155 H (74-99) mg/dL Calcium 9.5 (8.4-10.2) mg/dL AST 28 (17-59) U/L ALT 36 (4-49) U/L Alkaline Phosphatase 56 (38-126) U/L Total Protein 7.9 (6.3-8.2) g/dL Albumin 4.5 (3.5-5.0) g/dL Intake and Output 06/29/19 06/30/19 06/30/19 22:59 06:59 14:59 Intake Total 718 Balance 718 Intake: Oral 718 Other: Voiding Method Toilet # Voids 1 6 3 Weight 114.305 kg 111.8 kg 06/29/19 17:01 06/29/19 17:01
--- NOTE | 2019-06-30 16:43 | ECHOF ---
Referral Reason:syncope MEASUREMENTS -------- HEIGHT: 182.9 cm WEIGHT: 111.1 kg BP: RVIDd: 3.4 cm (< 3.3) IVSd: 1.3 cm (0.6 - 1.1) LVIDd: 5.0 cm (3.9 - 5.3) LVPWd: 1.1 cm (0.6 - 1.1) IVSs: 1.6 cm LVIDs: 3.5 cm LVPWs: 1.4 cm LA Diam: 3.7 cm (2.7 - 3.8) LAESV Index (A-L): 25.28 ml/m Ao Diam: 3.2 cm (2.0 - 3.7) AV Cusp: 2.2 cm (1.5 - 2.6) LA Diam: 4.3 cm (2.7 - 3.8) MV EXCURSION: 23.601 mm (> 18.000) MV EF SLOPE: 119 mm/s (70 - 150) EPSS: 0.3 cm MV E Tono: 0.67 m/s MV DecT: 155 ms MV A Tono: 0.48 m/s MV E/A Ratio: 1.38 RAP: 5.00 mmHg RVSP: 23.88 mmHg FINDINGS -------- Paced rhythm. This was a technically good study. The left ventricular size is normal. There is mild concentric left ventricular hypertrophy. Overa ll left ventricular systolic function is low-normal with, an EF between 50 - 55 %. The right ventricle is normal in size. The left atrial size is normal. The right atrial size is normal. There is mild aortic valve sclerosis. Mild mitral annular calcification present. Mild mitral regurgitation is present. Mild tricuspid regurgitation present. Right ventricular systolic pressure is normal at < 35 mmHg. There is no evidence of pulmonary hypertension. There is no pulmonic regurgitation present. The aortic root size is normal. There is no pericardial effusion. CONCLUSIONS -------- 1. Paced rhythm. 2. This was a technically good study. 3. The left ventricular size is normal. 4. There is mild concentric left ventricular hypertrophy. 5. Overall left ventricular systolic function is low-normal with, an EF between 50 - 55 %. 6. The right ventricle is normal in size. 7. The left atrial size is normal. 8. The right atrial size is normal. 9. There is mild aortic valve sclerosis. 10. Mild mitral annular calcification present. 11. Mild mitral regurgitation is present. 12. Mild tricuspid regurgitation present. 13. Right ventricular systolic pressure is normal at < 35 mmHg. 14. There is no evidence of pulmonary hypertension. 15. There is no pulmonic regurgitation present. 16. The aortic root size is normal. 17. There is no pericardial effusion. PRODUCT SCIENTIST: Fallon Raines RDCS
== END 2019-06-30 13:34 | disposition home or self-care (01) | DRG 312 ==
LOC: SUPCPDRO 16:54 → EC 16:54 → 3SCARD 18:46
PROVIDERS: ADMIT Hospitalist; ATTEND Hospitalist
PROC: 4B02XSZ Measurement of Cardiac Pacemaker, External Approach (ICD-10-PCS; principal; 2019-06-30)
DX: I95.1 Orthostatic hypotension (principal); I47.2 Ventricular tachycardia; H81.09 Meniere's disease, unspecified ear; I11.0 Hypertensive heart disease with heart failure; I44.0 Atrioventricular block, first degree; I50.9 Heart failure, unspecified; Z83.3 Family history of diabetes mellitus; Z91.81 History of falling; Z95.0 Presence of cardiac pacemaker; Z91.012 Allergy to eggs; W18.2XXA Fall in (into) shower or empty bathtub, initial encounter; Y92.002 Bathroom of unspecified non-institutional (private) residence as the place of occurrence of the external cause
CPT/HCPCS: 36415; 80053; 82550; 83735; 83880; 84100; 84484; 85025; 85379; 85610; 85730; 93005; 93306; 96360; 99291

== ENCOUNTER 2019-07-19 12:18 | Day surgery (SDC) | payer OTHER ==
[2019-07-17 10:54] VITALS: BMI 35.6
[~2019-07-19 12:18] MED LIST: SODIUM CHLORIDE 0.9% 1,000 ML IV SCH
[2019-07-19] MEDS ORDERED: SODIUM CHLORIDE 0.9% 500 ML 500 ML IV ONE (12:32)
[2019-07-19 12:40] VITALS: BP 132/74; RESP 16; TEMP 98.3
--- NOTE | 2019-07-19 15:54 | P.PCN ---
<Jade Laird - Last Filed: 07/19/19 15:46> Preoperative Diagnosis: Diagnosis: syncope Baseline 12-lead EKG showed sinus mechanism, mildly prolonged AL, narrow QRS, [address] elevations in leads 1 and II, no notching, likely early repolarization abnormality, normal QT interval, no Delta or epsilon waves Baseline heart rate is 65 bpm, Baseline blood pressure is 139/75. Patient was tilted upright at a 70 angle per protocol, no significant changes in heart rate or blood pressure throughout the procedure. The patient remained asymptomatic throughout the procedure. At the end of the procedure the patient was laid flat Impression Twelve-lead EKG showing early repolarization abnormality in leads 1 and 2 and first-degree AV block No evidence of neurocardiogenic syncope or dysautonomia <Won Srinivasan - Last Filed: 07/19/19 17:21> Preoperative Diagnosis: Patient's pacemaker telemetry was interrogated shows 2 episodes of sinus tachycardia with far field ventricular sensing, likely sinus tachycardia Patient is asymptomatic Device was reprogrammed. Tachycardia detection changed to 1 75 bpm
[2019-07-19 16:06] VITALS: PULSE 72
== END 2019-07-19 15:59 | disposition home or self-care (01) ==
LOC: CATHEP 12:18
PROVIDERS: ATTEND Internal Medicine Clinical Cardiac Electrophysiology
DX: R55 Syncope and collapse (principal); I44.0 Atrioventricular block, first degree; I49.5 Sick sinus syndrome; D69.0 Allergic purpura; Z95.0 Presence of cardiac pacemaker; Z91.012 Allergy to eggs; Z79.899 Other long term (current) drug therapy; Z82.49 Family history of ischemic heart disease and other diseases of the circulatory system
CPT/HCPCS: 93660

== ENCOUNTER 2020-09-18 17:25 | Emergency (ER) | payer OTHER ==
[2020-09-18 17:52] VITALS: BP 122/75; PULSE 64; RESP 17; TEMP 98.5
--- NOTE | 2020-09-18 19:22 | CT ---
EXAMINATION TYPE: CT brain ceciliaine wo con DATE OF EXAM: 09/18/2020 COMPARISON: NONE HISTORY: Syncope and neck pain after head injury. CT DLP: 1643.3 mGycm. Automated Exposure Control for Dose Reduction was Utilized. TECHNIQUE: CT scan of the head and cervical spine are performed without contrast. FINDINGS: There is no acute intracranial hemorrhage, mass effect, or midline shift identified. The ventricles and sulci are within normal limits in size. English-white matter differentiation is maintain ed. The calvarium is intact. The globes are intact and the visualized sinuses are clear. Cervical spine is visualized in its entirety from C1 through upper thoracic levels and demonstrates s traightened alignment without evidence of acute fracture or dislocation. Prevertebral soft tissue ap pears within normal limits. The C1-C2 articulation is within normal limits on the coronal images. V ertebral body heights and disc space heights are maintained. Spinal canal is preserved. Thyroid gland appears within normal limits. Lung apices show no pneumothorax. Pacemaker wires are partially imaged . IMPRESSION: 1. There is no acute fracture or dislocation evident in the cervical spine. 2. No acute intracranial hemorrhage, mass effect, or midline shift is seen.
--- NOTE | 2020-09-18 19:34 | ED ---
Head Injury HPI - General Chief complaint: Head Injury Stated complaint: Head Injury, Syncope Time Seen by Provider: 09/18/20 18:40 Source: patient Mode of arrival: wheelchair Limitations: no limitations - History of Present Illness Initial comments: 35-year-old male with history of Mnire's presents to emergency with a chief complaint of a head injury. Patient reports he attempted to lose consciousness on purpose by hitting his head into the wall in order to stop the tendinitis. Patient reports he could not deal with tenitus anymore. He denies any homicidal, suicidal thoughts or ideations. He does report losing consciousness and having 2 syncopal episodes afterwards. He denies any lightheadedness, dizziness at this time. He already sees a local ENT specialist but is said to find another one that specializes specifically for Mnire's. Patient states being on prednisone before which helped the symptoms but does not want to do it again because the other dose was recently. He denies any other symptoms. - Related Data Home Medications Medication Instructions Recorded Confirmed Triamterene-Hctz 37.5-25Mg 1 cap PO DAILY 09/22/18 07/19/19 [Dyazide 37.5-25 Capsule] Allergies/Adverse reactions: Allergies Allergy/AdvReac Type Severity Reaction Status Date / Time egg AdvReac Nausea & Verified 09/18/20 17:52 Vomiting Review of Systems ROS Statement: Those systems with pertinent positive or pertinent negative responses have been documented in the HPI. ROS Other: All systems not noted in ROS Statement are negative. Past Medical History Past Medical History: Dialysis Additional Past Medical History / Comment(s): meniere's disease which contributes to vertigo and history of falls. 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 This caused the damage in his heart which lead to a pacemaker in 2001 with device change in 2007 ([facility] [facility]). Theorized by doctors HSP brought on by strep throat. History of Any Multi-Drug Resistant Organisms: None Reported Past Surgical History: Pacemaker Additional Past Surgical History / Comment(s): pacemaker 2001 with device change in 2007 [facility] Past Anesthesia/Blood Transfusion Reactions: No Reported Reaction Additional Past Anesthesia/Blood Transfusion Reaction / Comment(s): no previous blood transfusions Type of Cardiac Device: Permanent Pacemaker Device Placement Date:: 09/2007 Past Psychological History: No Psychological Hx Reported Smoking Status: Never smoker Past Alcohol Use History: None Reported Past Drug Use History: None Reported - Past Family History Father Family Medical History: Diabetes Mellitus Brother(s) Family Medical History: Diabetes Mellitus Mother Family Medical History: Deep Vein Thrombosis (DVT) Sister(s) Family Medical History: Deep Vein Thrombosis (DVT) Additional Family Medical History / Comment(s): vtach General Exam Limitations: no limitations General appearance: alert, in no apparent distress Head exam: Present: atraumatic, normocephalic, normal inspection. Absent: other (Negative De La Fuente sign, raccoon eyes, hemotympanum.) Eye exam: Present: normal appearance, PERRL, EOMI. Absent: nystagmus Pupils: Present: normal accommodation ENT exam: Present: normal exam, normal oropharynx, mucous membranes moist Neck exam: Present: normal inspection, full ROM. Absent: tenderness Respiratory exam: Present: normal lung sounds bilaterally. Absent: respiratory distress Cardiovascular Exam: Present: regular rate, normal rhythm, normal heart sounds Extremities exam: Present: normal inspection, full ROM, normal capillary refill. Absent: tenderness, pedal edema, joint swelling Back exam: Present: normal inspection, full ROM. Absent: tenderness, CVA tend erness (R), CVA tenderness (L) Neurological exam: Present: alert, oriented X3, normal gait Psychiatric exam: Present: normal affect, normal mood Skin exam: Present: warm, dry, intact, normal color Course Vital Signs 09/18/20 17:47 Temperature 98.5 F Pulse Rate 64 Respiratory 17 Rate Blood Pressure 122/75 O2 Sat by Pulse 95 Oximetry Medical Decision Making - Medical Decision Making 35-year-old male with history of Mnire's presents to emergency Department with a chief complaint of head injury. Physical examination is unremarkable. No focal deficits. Patient does not have any symptoms at this time. There is no concern for suicide at this time, this was only performed in order to stop his symptoms secondary to the Mnire's. CT of the brain and C-spine shows no acute fractures, dislocations, intracranial hemorrhage or any space-occupying lesions. Patient will be discharged with an outpatient follow-up. I did offer him a prednisone course, he declined. Strict return parameters were thoroughly discussed the patient was understanding and agreeable. Case discussed with Dr. Chopra. Disposition Clinical Impression: Head injury, Concussion Disposition: HOME SELF-CARE Condition: Stable Instructions (If sedation given, give patient instructions): Concussion (ED) Additional Instructions: Please return to the Emergency Department if symptoms worsen or any other concerns. Is patient prescribed a controlled substance at d/c from ED?: No Referrals: Jose Farooq DO [Primary Care Provider] - 1-2 days Time of Disposition: 19:34
== END 2020-09-18 19:46 | disposition home or self-care (01) ==
LOC: EC 17:25
DX: S06.0X1A Concussion with loss of consciousness of 30 minutes or less, initial encounter (principal); H81.09 Meniere's disease, unspecified ear; D69.0 Allergic purpura; W22.8XXA Striking against or struck by other objects, initial encounter; Z79.899 Other long term (current) drug therapy; Z91.012 Allergy to eggs; Z95.0 Presence of cardiac pacemaker; Z83.3 Family history of diabetes mellitus; Z82.49 Family history of ischemic heart disease and other diseases of the circulatory system
CPT/HCPCS: 70450; 72125; 99285

== ENCOUNTER → 2020-11-21 | Outpatient (CLI) | payer OTHER ==
--- NOTE | 2020-11-21 17:03 | CT ---
EXAMINATION TYPE: CT brain wo/w con DATE OF EXAM: 11/21/2020 COMPARISON: Correlation made with CT scan of the head from 09/18/2020. HISTORY: hearing loss, headaches, dizziness CT DLP: 2059.8mGycm CONTRAST: CT scan of the head is performed without and with IV Contrast, patient injected with 100 mL of Isovue 300. Unenhanced followed by contrast enhanced CT of the brain is submitted for evaluation. The ventricles are midline. There is no evidence for intracranial hemorrhage or extra-axial collection. No mass e ffects are identified. Visualized bony calvarium is intact. Contrast is administered and no enhanci ng lesions are detected. No pathologic enhancement is identified. Mastoid air cells are well-developed on the left and somewhat diminutive in caliber on the right. The re is no evidence of mastoiditis.. IMPRESSION: No acute intracranial hemorrhage. No enhancing mass lesion is identified. No lytic or irma stic process is seen. Note: MRI of the brain is more sensitive study for evaluation of brain parenchyma and brain lesions.
--- NOTE | 2020-11-21 19:32 | CT ---
EXAMINATION TYPE: CT iac wo/w con DATE OF EXAM: 11/21/2020 COMPARISON: Dizziness HISTORY: hearling loss, headaches, dizziness CT DLP: 292.7 mGycm Automated exposure control for dose reduction was used. CONTRAST: CT scan of the IACs is performed without and with IV Contrast, patient injected with 100 mL of Isovue 300. FINDINGS: The external auditory canals are patent bilaterally. Mastoid air cells show no evidence of abnormal opacification bilaterally. The middle ear ossicles are symmetric and unremarkable. There is no evidence of suspicious surrounding soft tissue density to suggest cholesteatoma. The scutum is preserved bilaterally. The cochlea and the semicircular canals are symmetric and unremarkable. Ves tibular aqueduct and internal carotid canal appear unremarkable. Temporomandibular joints are mainta ined bilaterally. Mild changes of chronic sinusitis. IMPRESSION: No significant abnormality seen to account for patient's symptoms.
== END | disposition home or self-care (01) ==
LOC: RADCTMAIN 15:50
PROVIDERS: ATTEND Otolaryngology Otology & Neurotology
DX: H91.90 Unspecified hearing loss, unspecified ear (principal)
CPT/HCPCS: 70482; 70470; Q9967

== ENCOUNTER 2023-05-20 08:35 | Emergency (ER) | payer OTHER ==
--- NOTE | 2023-05-20 08:57 | ED ---
Extremity Problem HPI - General Chief complaint: Extremity Problem,Nontraumatic Stated complaint: Right leg swelling Time Seen by Provider: 05/20/23 08:44 Source: patient, RN notes reviewed Mode of arrival: ambulatory Limitations: no limitations - History of Present Illness Initial comments: This is a 38-year-old male who presents to the emergency department for right leg pain and swelling. States that he went to bed fine, however when he woke up he developed pain, redness, and swelling in the right leg. This started around the knee and has since started to travel up towards the thigh. Also notes that he was having difficulty bearing weight this morning due to the pain. States that he is concerned about a possible blood clot. He is not taking any blood thinners. Denies any history of blood clots. Also denies any chest pain or shortness of breath. MD Complaint: extremity pain - Related Data Home Medications Medication Instructions Recorded Confirmed Triamterene-Hctz 37.5-25Mg 1 cap PO DAILY 09/22/18 07/19/19 [Dyazide 37.5-25 Capsule] Allergies Allergy/AdvReac Type Severity Reaction Status Date / Time egg AdvReac Nausea & Verified 05/20/23 08:43 Vomiting Review of Systems ROS Statement: Those systems with pertinent positive or pertinent negative responses have been documented in the HPI. ROS Other: All systems not noted in ROS Statement are negative. Past Medical History Past Medical History: Dialysis Additional Past Medical History / Comment(s): meniere's disease which contributes to vertigo and history of falls. 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 This caused the damage in his heart which lead to a pacemaker in 2001 with device change in 2007 ([facility]). Theorized by doctors HSP brought on by strep throat. History of Any Multi-Drug Resistant Organisms: None Reported Past Surgical History: Pacemaker Additional Past Surgical History / Comment(s): pacemaker 2001 with device change in 2007 [facility] Past Anesthesia/Blood Transfusion Reactions: No Reported Reaction Additional Past Anesthesia/Blood Transfusion Reaction / Comment(s): no previous blood transfusions Type of Cardiac Device: Permanent Pacemaker Device Placement Date:: 09/2007 Past Psychological History: No Psychological Hx Reported Smoking Status: Never smoker Past Alcohol Use History: None Reported Past Drug Use History: None Reported - Past Family History Father Family Medical History: Diabetes Mellitus Brother(s) Family Medical History: Diabetes Mellitus Mother Family Medical History: Deep Vein Thrombosis (DVT) Sister(s) Family Medical History: Deep Vein Thrombosis (DVT) Additional Family Medical History / Comment(s): vtach General Exam Limitations: no limitations General appearance: alert, in no apparent distress Head exam: Present: atraumatic, normocephalic, normal inspection Respiratory exam: Present: normal lung sounds bilaterally. Absent: respiratory distress, wheezes, rales, rhonchi, stridor Cardiovascular Exam: Present: regular rate, normal rhythm, normal heart sounds. Absent: systolic murmur, diastolic murmur, rubs, gallop, clicks Extremities exam: Present: other (Minor tenderness and swelling to the right lower extremity near the calf. No obvious erythema. Full range of motion. 2+ DP and PT pulses. Capillary refill less than 1 second.) Neurological exam: Present: alert, oriented X3, CN II-XII intact Psychiatric exam: Present: normal affect, normal mood Skin exam: Present: warm, dry, intact, normal color. Absent: rash Course Vital Signs 05/20/23 08:41 Temperature 98.1 F Pulse Rate 77 Respiratory 20 Rate Blood Pressure 138/84 O2 Sat by Pulse 99 Oximetry Medical Decision Making - Medical Decision Making This is a 38-year-old male who presents to the emergency department for right leg pain and swelling. Was pt. sent in by a medical professional or institution? @ -No Did you speak to anyone other than the patient for history? @ -No Did you review nursing and triage notes? @ -Yes, and I agree, it is accurate with regards to the patient's symptoms. Were old charts reviewed? @ -No Differential Diagnosis? @ -Differential Leg Pain: Leg fracture, leg sprain, DVT, PVD, arterial insufficiency, iliac artery aneu rysm, cellulitis, compartment syndrome, tendinopathy, nerve entrapment, piriformis syndrome, osteoarthritis, rhabdomyolysis, myositis, cramping from an electrolyte imbalance, this is not meant to be an all inclusive list. EKG interpreted by me (3pts min.)? @ -Not obtained X-rays interpreted by me (1pt min.)? @ -Not obtained CT interpreted by me (1pt min.)? @ -Not obtained U/S interpreted by me (1pt. min.)? @ -Duplex US of the right lower extremity obtained. My interpretation identifies no evidence of a DVT. What testing was considered but not performed? (CT, X-rays, U/S, labs)? Why? @ -None What meds were considered but not given? Why? @ -None Did you discuss the management of the patient with other professionals? @ -No Did you reconcile home meds? @ -No Was smoking cessation discussed for >3mins.? @ -No Was critical care preformed (if so, how long)? @ -No Were there social determinants of health that impacted care today? How? (Homelessness, low income, unemployed, alcoholism, drug addiction, transportation, low edu. Level, literacy, decrease access to med. care, alf, rehab)? @ -No Was there de-escalation of care discussed even if they declined? (Discuss DNR or withdrawal of care, Hospice)? @ -No What co-morbidities impacted this encounter? (DM, HTN, Smoking, COPD, CAD, Cancer, CVA, Hep., AIDS, mental health diagnosis, sleep apnea, morbid obesity)? @ -None Was patient admitted / discharged? @ -Discharged. Duplex US of the right lower extremity obtained revealing no evidence of a DVT. He declined the need for any pain medication in the emergency department. Advised that the cause of this is not entirely clear. Patient is comfortable with discharge home in knowing that this is not a DVT and will follow up with his primary care provider. Advised Tylenol as needed for pain relief. Undiagnosed new problem with uncertain prognosis? @ -None Drug Therapy requiring intensive monitoring for toxicity (Heparin, Nitro, Insulin, Cardizem)? @ -None Were any procedures done? @ -None Diagnosis/symptom? @ -Right leg pain Acute, or Chronic, or Acute on Chronic? @ -Acute Uncomplicated (without systemic symptoms) or Complicated (systemic symptoms)? @ -Uncomplicated Side effects of treatment? @ -None Exacerbation, Progression, or Severe Exacerbation] @ -Not applicable Poses a threat to life or bodily function? @ -No Return precautions reviewed in depth, the patient is instructed to return to the emergency department with any new, worsening, or concerning symptoms. Patient verbalized understanding. This case was discussed in detail with the attending ED physician, Dr. Keenan. Presentation, findings, and treatment plan discussed in detail as well. - Radiology Data Radiology results: report reviewed, image reviewed Disposition Clinical Impression: Right leg pain Disposition: HOME SELF-CARE Instructions (If sedation given, give patient instructions): Leg Pain (ED) Additional Instructions: Return to the emergency department with any new, worsening, or concerning symptoms. Take Tylenol as needed for pain relief. Follow up with your primary care provider in 1-2 days. Is patient prescribed a controlled substance at d/c from ED?: No Referrals: Jose Farooq DO [Primary Care Provider] - 1-2 days
--- NOTE | 2023-05-20 10:03 | US ---
EXAMINATION TYPE: US venous doppler duplex LE RT DATE OF EXAM: 05/20/2023 9:46 AM COMPARISON: NONE CLINICAL INDICATION: Male, 38 years old with history of Right leg pain and swelling; Right knee redne ss and pain since last night, varicose veins at mid thigh more prominent SIDE PERFORMED: Right TECHNIQUE: The lower extremity deep venous system is examined utilizing real time linear array sonog pasha with graded compression, doppler sonography and color-flow sonography. VESSELS IMAGED: Common Femoral Vein Deep Femoral Vein Greater Saphenous Vein * Femoral Vein Popliteal Vein Small Saphenous Vein * Proximal Calf Veins (* superficial vessels) Right Leg: Negative for DVT Right mid thigh varicosities appear free of thrombus and are compressible IMPRESSION: Grayscale, color doppler, spectral doppler imaging performed of the deep veins of the lo wer extremities. There is normal flow, compressibility, vascular waveforms.
[2023-05-20 10:51] VITALS: BP 134/88; PULSE 81; RESP 18; TEMP 98.3
== END 2023-05-20 10:29 | disposition home or self-care (01) ==
LOC: EC 08:35
DX: M79.661 Pain in right lower leg (principal); Z91.012 Allergy to eggs
CPT/HCPCS: 99283

== ENCOUNTER → 2023-07-01 | Outpatient (CLI) | payer OTHER ==
--- NOTE | 2023-07-01 15:03 | CT ---
EXAMINATION TYPE: CT sinus wo con CT DLP: 610 mGycm, Automated exposure control for dose reduction was used. DATE OF EXAM: 07/01/2023 2:09 PM COMPARISON: 11/21/2020. CLINICAL INDICATION:Male, 38 years old with history of J32.0; , chronic sinusitis TECHNIQUE: Multiple thin axial images were obtained through the paranasal sinuses without the use of IV contrast. Additional coronal and sagittal reformatted images were submitted for evaluation. Contrast used: none Oral contrast used: none FINDINGS: No significant paranasal sinus disease. The ostiomeatal units, frontonasal and superior lateral reces ses are patent. Visualized portions of the orbits and globes are within normal limits. No dislocation of the temporomandibular joints. The temporal bones bilaterally are within normal limits. And visual ized intracranial structures are within normal limits. IMPRESSION: 1. No significant mucosal sinus disease. 2. The ostiomeatal units, frontonasal and sphenoethmoidal recesses are clear.
== END | disposition home or self-care (01) ==
LOC: RADCTMAIN 13:54
PROVIDERS: ATTEND Otolaryngology
DX: J32.0 Chronic maxillary sinusitis (principal)
CPT/HCPCS: 70486

== ENCOUNTER 2023-08-29 16:55 | Day surgery (SDC) | payer OTHER ==
[2023-08-29] MEDS: SODIUM CHLORIDE 0.9% 1,000 ML IV ONE (05:50)
[2023-08-29 17:57] LABS: Basophils # (A) 0.1 k/uL (0-0.2); Basophils % (A) 1 %; Eosinophils # (A) 0.1 k/uL (0-0.7); Eosinophils % (A) 2 %; HCT 44.9 % (39.0-53.0); HGB 15.6 gm/dL (13.0-17.5); Lymphocytes % (A) 24 %; MCH 29.7 pg (25.0-35.0); MCHC 34.7 g/dL (31.0-37.0); MCV 85.4 fL (80.0-100.0); Monocytes # (A) 0.4 k/uL (0-1.0); Monocytes % (A) 5 %; Neutrophils # (A) 5.7 k/uL (1.3-7.7); Neutrophils % (A) 68 %; Platelet Count 219 k/uL (150-450); RBC 5.25 m/uL (4.30-5.90); RDW 13.3 % (11.5-15.5); WBC 8.4 k/uL (3.8-10.6)
[2023-08-29 18:11] LABS: African American GFR (CKD) >90 (>60 ml/min/1.73 sqM); Anion Gap 10 mmol/L; Blood Urea Nitrogen 15 mg/dL (9-20); Calcium 9.4 mg/dL (8.4-10.2); Carbon Dioxide 28 mmol/L (22-30); Chloride 103 mmol/L (98-107); Glucose 109 mg/dL (74-99); Non-African American GFR(CKD) >90 (>60 ml/min/1.73 sqM); Sodium 141 mmol/L (137-145)
[2023-08-29 18:36] VITALS: BP 136/72; PULSE 76; RESP 16; TEMP 98.3
[2023-08-29] MEDS ORDERED: diphenhydrAMINE 50 MG/ML 1 ML VIAL ONE (18:53)
[2023-08-29] MEDS ORDERED: PROPOFOL 10 MG/ML 20 ML VIAL IV ONE (18:53)
[2023-08-29] MEDS ORDERED: fentaNYL (PF) 50 MCG/ML 2 ML AMP ONE (18:53)
[2023-08-29] MEDS ORDERED: MIDAZOLAM 2 MG/2 ML VIAL ONE (18:53)
[2023-08-29] MEDS ORDERED: LIDOCAINE 1% INJ 10MG/ML (20 ML MDV) ONE (19:09)
[2023-08-29] MEDS: LIDOCAINE 1% INJ 10MG/ML (20 ML MDV) SQ ONE (19:29)
[2023-08-29] MEDS: ROPIVACAINE 5 MG/ML 30 ML VIAL MISCELLANE ONE (19:30)
[2023-08-29] MEDS ORDERED: ACETAMINOPHEN TAB 325 MG TAB PO PRN (20:14)
--- NOTE | 2023-08-29 20:22 | P.EPPROC ---
- EP Procedure Note Electrophysiology Procedure Note: Diagnosis Symptomatic bradycardia status post dual-chamber pacemaker Pacemaker generator at [facility], secondary to normal battery depletion Procedure Dual-chamber pacemaker change, [employer] MRI model #2272 Details Patient was brought to the EP lab in a fasting state. Written informed consent was obtained prior to the procedure. Conscious sedation provided. IV antibiotics administered. Local anesthesia administered. A 4 cm incision made in the pectoral area. Subfascial pocket opened Generator explanted Very calcified capsule noted. Near total capsulectomy performed and hemostasis assured Leads inspected Discoloration noted but no insulation break. Lead function normal Chronic atrial lead on fluoroscopy in the right atrial appendage. No fractures or breaks noted Pacing threshold 0.75 V at point 5 ms, P waves greater than 5 mV and pacing impedance 450 ohms Chronic RV lead position in the RV, mid RV rather than apex. Pacing threshold 0.75 V at point 5 ms, R waves 3.4 mV and pacing pills for 160 ohms Device watch commander: [employer] MRI 2272 pacemaker DDD 40 VIP mode on to minimize RV pacing Dual-chamber pacemaker device connected to the leads and placed in the subfascial pocket Antibiotic pouch placed Patient tolerated the procedure well without acute complications
[2023-08-29] MEDS: ceFAZolin 1,000 MG in SODIUM CHLORIDE 0.9% IRRIG BTL 250 ML IRRIGATION STA (20:51)
[2023-08-29] MEDS: SODIUM CHLORIDE 0.9% 500 ML 500 ML IV ONE (20:51)
[2023-08-29] MEDS: ACETAMINOPHEN IV (For NPO) 1,000 MG in EMPTY BAG 1 BAG IVPB ONE (20:51)
[2023-08-29] MEDS: ceFAZolin 3 GM in SODIUM CHLORIDE 0.9% 100 ML IVPB SCH (22:16)
== END 2023-08-29 23:05 | disposition home or self-care (01) ==
LOC: CATHEP 16:55 → 6NMEDSUR 20:12 → CATHEP 23:05
PROVIDERS: ATTEND Internal Medicine Clinical Cardiac Electrophysiology
DX: R00.1 Bradycardia, unspecified (principal); Z82.49 Family history of ischemic heart disease and other diseases of the circulatory system; Z91.012 Allergy to eggs; Z95.1 Presence of aortocoronary bypass graft; Z79.899 Other long term (current) drug therapy
CPT/HCPCS: 33228; 80048; 85025; C1785; J0690; J2001; J2795

== ENCOUNTER 2023-09-09 20:39 | Emergency (ER) | payer OTHER ==
--- NOTE | 2023-09-09 21:01 | ED ---
General Adult HPI - General Source: patient, RN notes reviewed <Miriam Carl - Last Filed: 09/09/23 21:00> <Aaron Carney - Last Filed: 09/09/23 23:07> - General Stated complaint: RASH Time Seen by Provider: 09/09/23 21:00 - History of Present Illness Initial comments: Patient is a 38-year-old male presented ER with a chief complaint of sore throat. Patient states he was seen at urgent care and they told him it could be possibly strep. They did not test him. Patient also is reporting a rash on bilateral legs extended into his stomach. (Miriam Carl) 38-year-old male presenting with sore throat for the past several days and rash to the thighs and lower stomach. Patient is otherwise well-appearing appearing no fever. He had recent pacemaker placement approximately 2 weeks ago has had no issues. The medical record does indicate that this patient is on dialysis he denies dialysis this is an error. (Aaron Carney) - Related Data Home Medications Medication Instructions Recorded Confirmed Triamterene-Hctz 37.5-25Mg 1 cap PO DAILY 09/22/18 08/29/23 [Dyazide 37.5-25 Capsule] Previous Rx's Medication Instructions Recorded Amoxicillin 500 mg PO TID 10 Days #30 cap 09/09/23 Allergies Allergy/AdvReac Type Severity Reaction Status Date / Time No Known Allergies Allergy Verified 08/29/23 19:29 Review of Systems ROS Other: All systems not noted in ROS Statement are negative. <Miriam Carl - Last Filed: 09/09/23 21:00> ROS Other: All systems not noted in ROS Statement are negative. <Aaron Carney - Last Filed: 09/09/23 23:07> ROS Statement: Those systems with pertinent positive or pertinent negative responses have been documented in the HPI. Past Medical History Past Medical History: Dialysis Additional Past Medical History / Comment(s): meniere's disease which contributes to vertigo and history of falls. 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 This caused the damage in his heart which lead to a pacemaker in 2001 with device change in 2007 ([facility]). Theorized by doctors HSP brought on by strep throat. History of Any Multi-Drug Resistant Organisms: None Reported Past Surgical History: Pacemaker Additional Past Surgical History / Comment(s): pacemaker 2001 with device change in 2007 [facility] Past Anesthesia/Blood Transfusion Reactions: No Reported Reaction Additional Past Anesthesia/Blood Transfusion Reaction / Comment(s): no previous blood transfusions Type of Cardiac Device: Permanent Pacemaker Device Placement Date:: 09/2007 Past Psychological History: No Psychological Hx Reported Smoking Status: Never smoker Past Alcohol Use History: None Reported Past Drug Use History: None Reported - Past Family History Father Family Medical History: Diabetes Mellitus Brother(s) Family Medical History: Diabetes Mellitus Mother Family Medical History: Deep Vein Thrombosis (DVT) Sister(s) Family Medical History: Deep Vein Thrombosis (DVT) Additional Family Medical History / Comment(s): vtach <Miriam Carl - Last Filed: 09/09/23 21:00> General Exam <Miriam Carl - Last Filed: 09/09/23 21:00> General appearance: alert, in no apparent distress Head exam: Present: atraumatic, normocephalic Eye exam: Present: normal appearance, PERRL ENT exam: Absent: normal oropharynx (Pharyngeal erythema, tonsillar swelling) Neck exam: Present: normal inspection Respiratory exam: Present: normal lung sounds bilaterally. Absent: respiratory distress Cardiovascular Exam: Present: regular rate, normal rhythm GI/Abdominal exam: Present: soft. Absent: distended, tenderness Extremities exam: Present: normal capillary refill. Absent: pedal edema Neurological exam: Present: alert, oriented X3 Psychiatric exam: Present: normal affect, normal mood Skin exam: Present: urticaria (Rash on anterior thighs, no petechiae) <Aaron Carney - Last Filed: 09/09/23 23:07> - General Exam Comments Initial Comments: Visual Physical Exam Vital signs reviewed General: Well-appearing, nontoxic, no acute distress. Head: Normocephalic, atraumatic Eyes: PERRLA, EOMI ENT: Airway patent Chest: Nonlabored breathing Skin: No visual rash, normal skin tone Neuro: Alert and oriented 3 Musculoskeletal: No gross abnormalities (Miriam Carl) Course Vital Signs 09/09/23 21:07 Temperature 99.2 F Pulse Rate 79 Respiratory 18 Rate Blood Pressure 166/83 O2 Sat by Pulse 98 Oximetry Medical Decision Making <Miriam Carl - Last Filed: 09/09/23 21:00> <Aaron Carney Fredy - Last Filed: 09/09/23 23:07> - Medical Decision Making I performed the quick note portion of the exam. Electronically signed by Miriam Carl PA-C (Miriam Carl) Was pt. sent in by a medical professional or institution ([facility], TITLE I TEACHER, urgent care, hospital, or retirement...) When possible be specific @ -No Did you speak to anyone other than the patient for history (EMS, parent, family, police, friend...)? What history was obtained from this source @ -No Did you review nursing and triage notes (agree or disagree)? Why? @ -I reviewed and agree with nursing and triage notes Were old charts reviewed (outside hosp., previous admission, EMS record, old EKG, old radiological studies, urgent care reports/EKG's, retirement records)? Report findings @ -No old charts were reviewed Differential Diagnosis (chest pain, altered mental status, abdominal pain women, abdominal pain men, vaginal bleeding, weakness, fever, dyspnea, syncope, headache, dizziness, GI bleed, back pain, seizure, CVA, palpatations, mental health, musculoskeletal)? @ -Strep pharyngitis, viral pharyngitis, peritonsillar abscess EKG interpreted by me (3pts min.). @ -As above X-rays interpreted by me (1pt min.). @ -None done CT interpreted by me (1pt min.). @ -None done U/S interpreted by me (1pt. min.). @ -None done What testing was considered but not performed or refused? (CT, X-rays, U/S, labs)? Why? @ -None What meds were considered but not given or refused? Why? @ -None Did you discuss the management of the patient with other professionals (professionals i.e. [facility], TITLE I TEACHER, lab, RT, psych nurse, social science manager, venereal disease investigator, teacher, special officer automat, shelter case manager)? Give summary @ -No Was smoking cessation discussed for >3mins.? @ -No Was critical care preformed (if so, how long)? @ -No Were there social determinants of health that impacted care today? How? (Homelessness, low income, unemployed, alcoholism, drug addiction, transportation, low edu. Level, literacy, decrease access to med. care, care home, rehab)? @ -No Was there de-escalation of care discussed even if they declined (Discuss DNR or withdrawal of care, Hospice)? DNR status @ -No What co-morbidities impacted this encounter? (DM, HTN, Smoking, COPD, CAD, Cancer, CVA, ARF, Chemo, Hep., AIDS, mental health diagnosis, sleep apnea, morbid obesity)? @ -None Was patient admitted / discharged? Hospital course, mention meds given and route, prescriptions, significant lab abnormalities, going to OR and other pertinent info. @ -Patient test positive for strep, will be treated with amoxicillin, first dose administered in the emergency department. Patient will monitor her symptoms closely including rash and follow-up with primary care provider. Return parameters discussed. Undiagnosed new problem with uncertain prognosis? @ -No Drug Therapy requiring intensive monitoring for toxicity (Heparin, Nitro, Insulin, Cardizem)? @ -No Were any procedures done? @ -No Diagnosis/symptom? @Strep pharyngitis Acute, or Chronic, or Acute on Chronic? @Acute Uncomplicated (without systemic symptoms) or Complicated (systemic symptoms)? @ -Default Side effects of treatment? @ -No Exacerbation, Progression, or Severe Exacerbation? @ -No Poses a threat to life or bodily function? How? (Chest pain, [place], [place], pneumonia, PE, COPD, DKA, ARF, appy, cholecystitis, CVA, Diverticulitis, Homicidal, Suicidal, threat to staff... and all critical care pts) @ -Low risk at this time (Aaron Carney) - Lab Data Lab Results 09/09/23 Range/Units 21:12 Group A Strep (PCR) DETECTED A (Not Detectd) Disposition <Miriam Carl - Last Filed: 09/09/23 21:00> Is patient prescribed a controlled substance at d/c from ED?: No Time of Disposition: 22:50 <Aaron Carney - Last Filed: 09/09/23 23:07> Clinical Impression: Strep pharyngitis Disposition: HOME SELF-CARE Condition: Good Instructions (If sedation given, give patient instructions): Strep Throat (ED) Prescriptions: Amoxicillin 500 mg PO TID 10 Days #30 cap Referrals: Jose Farooq DO [Primary Care Provider] - 1-2 days
[2023-09-09 21:12] VITALS: BP 166/83; PULSE 79; RESP 18; TEMP 99.2
[2023-09-09] MEDS: AMOXICILLIN 250 MG/5 ML 80 ML BOTTLE PO ONE (22:46)
== END 2023-09-09 22:53 | disposition home or self-care (01) ==
LOC: EC 20:39
DX: J02.0 Streptococcal pharyngitis (principal); B95.0 Streptococcus, group A, as the cause of diseases classified elsewhere; Z99.2 Dependence on renal dialysis
CPT/HCPCS: 87651; 99282

== ENCOUNTER 2023-09-11 07:53 | Emergency (ER) | payer OTHER ==
[2023-09-11 08:29] VITALS: BP 126/87; PULSE 91; RESP 16; TEMP 97.7
--- NOTE | 2023-09-11 08:39 | ED ---
General Adult HPI - General Chief complaint: Skin/Abscess/Foreign Body Stated complaint: Strep, Rash Time Seen by Provider: 09/11/23 07:58 Source: patient, RN notes reviewed, old records reviewed Mode of arrival: ambulatory Limitations: no limitations - History of Present Illness Initial comments: Patient is a pleasant 38-year-old male presenting to the emergency department with strep throat and rash. Patient had sore throat with onset 4 days ago. Patient diagnosed with strep throat 2 days ago and has been on antibiotics. Patient states throat discomfort has improved and near resolved. Patient did have a rash which started prior to antibiotics. Patient has rash mostly on his legs. Patient states he has been feeling a little bit achy, unclear if he has had fever. Patient is concerned because he had history of HSP associated with strep infection as a child which cause cardiac problems. Patient did have pacemaker placed around 12 days ago. - Related Data Home Medications Medication Instructions Recorded Confirmed Triamterene-Hctz 37.5-25Mg 1 cap PO DAILY 09/22/18 08/29/23 [Dyazide 37.5-25 Capsule] Previous Rx's Medication Instructions Recorded Amoxicillin 500 mg PO TID 10 Days #30 cap 09/09/23 Allergies Allergy/AdvReac Type Severity Reaction Status Date / Time No Known Allergies Allergy Verified 08/29/23 19:29 Review of Systems ROS Statement: Those systems with pertinent positive or pertinent negative responses have been documented in the HPI. ROS Other: All systems not noted in ROS Statement are negative. Constitutional: Denies: fever Eyes: Denies: eye pain ENT: Reports: as per HPI Respiratory: Denies: cough, dyspnea Cardiovascular: Denies: chest pain Endocrine: Denies: fatigue Gastrointestinal: Denies: abdominal pain Skin: Reports: as per HPI, rash Past Medical History Additional Past Medical History / Comment(s): meniere's disease which contributes to vertigo and history of falls. 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 This caused the damage in his heart which lead to a pacemaker in 2001 with device change in 2007 ([facility]). Theorized by doctors HSP brought on by strep throat. History of Any Multi-Drug Resistant Organisms: None Reported Past Surgical History: Pacemaker Additional Past Surgical History / Comment(s): pacemaker 2001 with device change in 2007 [facility] Past Anesthesia/Blood Transfusion Reactions: No Reported Reaction Additional Past Anesthesia/Blood Transfusion Reaction / Comment(s): no previous blood transfusions Type of Cardiac Device: Permanent Pacemaker Device Placement Date:: 09/2007 Past Psychological History: No Psychological Hx Reported Smoking Status: Never smoker Past Alcohol Use History: None Reported Past Drug Use History: None Reported - Past Family History Father Family Medical History: Diabetes Mellitus Brother(s) Family Medical History: Diabetes Mellitus Mother Family Medical History: Deep Vein Thrombosis (DVT) Sister(s) Family Medical History: Deep Vein Thrombosis (DVT) Additional Family Medical History / Comment(s): vtach General Exam Limitations: no limitations General appearance: alert, in no apparent distress Head exam: Present: normocephalic Eye exam: Present: normal appearance ENT exam: Present: other (Mild pharyngeal erythema) Neck exam: Present: normal inspection Respiratory exam: Present: normal lung sounds bilaterally Cardiovascular Exam: Present: regular rate, normal rhythm GI/Abdominal exam: Present: soft. Absent: tenderness Extremities exam: Present: normal inspection Neurological exam: Present: alert Psychiatric exam: Present: normal affect, normal mood Skin exam: Present: urticaria (Patient does have mild urticarial rash mostly involving the legs. No tenderness.). Absent: petechiae Expanded Description of rash: Absent: vesicular, blisters, petechial, purpuic, crusting, discharge Course Vital Signs 09/11/23 08:00 Temperature 97.7 F Pulse Rate 91 Respiratory 16 Rate Blood Pressure 126/87 O2 Sat by Pulse 98 Oximetry Medical Decision Making - Medical Decision Making Was pt. sent in by a medical professional or institution (, PA, ADMINISTRATIVE AND PROGRAM SPECIALIST, urgent care, hospital, or [place] health care facility...) When possible be specific @ -No Did you speak to anyone other than the patient for history (EMS, parent, family, police, friend...)? What history was obtained from this source @ -No Did you review nursing and triage notes (agree or disagree)? Why? @ -I reviewed and agree with nursing and triage notes Were old charts reviewed (outside hosp., previous admission, EMS record, old EKG, old radiological studies, urgent care reports/EKG's, [place] health [facility] facility records)? Report findings @ -Previous positive strep results reviewed. Previous ER chart also reviewed Differential Diagnosis (chest pain, altered mental status, abdominal pain women, abdominal pain men, vaginal bleeding, weakness, fever, dyspnea, syncope, headache, dizziness, GI bleed, back pain, seizure, CVA, palpatations, mental health, musculoskeletal)? @ -Differential Fever: Pneumonia, viral URI, endocarditis, myocarditis, pericarditis, otitis, sinusitis, peritonsillar Abscess, retropharyngeal Abscess, epiglottitis, peritonitis, appendicitis, Megan cystitis, diverticulitis, hepatitis, colitis, UTI, PID, TOA, pyelonephritis, prostatitis, epididymitis, meningitis, encephalitis, pulmonary embolism, CVA, thyroid storm, pancreatitis, adrenal crisis, cavernous sinus thrombosis, this is not meant to be an all-inclusive list. EKG interpreted by me (3pts min.). @ -As above X-rays interpreted by me (1pt min.). @ -None done CT interpreted by me (1pt min.). @ -None done U/S interpreted by me (1pt. min.). @ -None done What testing was considered but not performed or refused? (CT, X-rays, U/S, labs)? Why? @ -Did offer blood work to further evaluate however patient would like to hold off at this time What meds were considered but not given or refused? Why? @ -None Did you discuss the management of the patient with other professionals (professionals i.e. , PA, ADMINISTRATIVE AND PROGRAM SPECIALIST, lab, RT, psych nurse, psychologist social, president, teacher, health promotion officer, employment case manager)? Give summary @ -No Was smoking cessation discussed for >3mins.? @ -No Was critical care preformed (if so, how long)? @ -No Were there social determinants of health that impacted care today? How? (Homelessness, low income, unemployed, alcoholism, drug addiction, transportation, low edu. Level, literacy, decrease access to med. care, senior care, rehab)? @ -No Was there de-escalation of care discussed even if they declined (Discuss DNR or withdrawal of care, Hospice)? DNR status @ -No What co-morbidities impacted this encounter? (DM, HTN, Smoking, COPD, CAD, Cancer, CVA, ARF, Chemo, Hep., AIDS, mental health diagnosis, sleep apnea, morbid obesity)? @ -History of recent strep infection as well as history of HSP as a child Was patient admitted / discharged? Hospital course, mention meds given and route, prescriptions, significant lab abnormalities, going to OR and other pertinent info. @ -Patient presents with recent positive strep infection. Patient states rash started prior to antibiotics however has worsened some. Patient took Benadryl without much improvement. Patient did receive recent prednisone prescription 50 mg for 5 days from an urgent care however has not started that. Patient does not want to do blood work at this time. Rash appears urticarial. No erythema. No signs of purpura. No fever. No skin desquamation. No nodules. Patient is comfortable with discharge and will take steroids and reevaluate in a couple of days. Patient is agreeable to return if symptoms change or worsen. Undiagnosed new problem with uncertain prognosis? @ -No Drug Therapy requiring intensive monitoring for toxicity (Heparin, Nitro, Insulin, Cardizem)? @ -No Were any procedures done? @ -No Diagnosis/symptom? @ -Urticaria Acute, or Chronic, or Acute on Chronic? @ -Acute Uncomplicated (without systemic symptoms) or Complicated (systemic symptoms)? @ -Default Side effects of treatment? @ -No Exacerbation, Progression, or Severe Exacerbation? @ -No Poses a threat to life or bodily function? How? (Chest pain, [place], [place], pneumonia, PE, COPD, DKA, ARF, appy, cholecystitis, CVA, Diverticulitis, Homicidal, Suicidal, threat to staff... and all critical care pts) @ -No Disposition Clinical Impression: Strep pharyngitis, Urticaria Disposition: HOME SELF-CARE Condition: Stable Instructions (If sedation given, give patient instructions): Urticaria (ED), Strep Throat (ED), Pharyngitis (ED) Additional Instructions: Please do follow-up with your primary care physician Tuesday. Please return for increased rash, pain, fevers, change of rash, swelling of the tongue or throat or lips, worsening symptoms or any other concerns. Take steroids as directed. Is patient prescribed a controlled substance at d/c from ED?: No Referrals: Jose Farooq DO [Primary Care Provider] - 1-2 days Time of Disposition: 08:39
== END 2023-09-11 08:48 | disposition home or self-care (01) ==
LOC: EC 07:53
DX: J02.0 Streptococcal pharyngitis (principal); L50.9 Urticaria, unspecified
CPT/HCPCS: 99283

== ENCOUNTER → 2023-12-14 | Outpatient (CLI) | payer OTHER ==
[2023-12-14 13:38] VITALS: BP 117/81; PULSE 69; RESP 16; TEMP 98.2
--- NOTE | 2023-12-14 14:27 | P.SLEEP ---
History of Present Illness DATE: 12/14/2023 CONSULTATION/NEW PATIENT EVALUATION HISTORY OF PRESENT ILLNESS/SLEEP-WAKE EVALUATION: 38-year-old gentleman had be en evaluated in the sleep center for possible obstructive sleep apnea hypopnea syndrome. SLEEP SCHEDULE: Usually sleep schedule from 9:30 PM to 6:30 AM. FALLING ASLEEP: Patient may have difficulties with falling asleep, has TV set in bedroom. DURING SLEEP: Patient sleeps in different positions with loud snoring and witnessed episodes of stop breathing during the sleep and choking. Positive his tory of dry mouth, heartburn. No history of hypnogogical hallucinations, sleep paralysis, or cataplexy. DURING THE DAY/WAKE STATE: During the day patient feels sleepiness. Catlin sleepiness scale is significantly increased to 15. Occasionally patient may take nap around 11 AM. PAST MEDICAL HISTORY: Mnire's disease, vertigo, neurocardiac syncope, cardiac arrhythmia. PAST SURGICAL HISTORY: Status post permanent pacemaker insertion. MEDICATIONS: Please see below. SOCIAL HISTORY: Please see below. FAMILY HISTORY: Please see below. REVIEW OF SYSTEMS: Snoring, multiple awakenings from sleep, sleepiness during the day. No fevers. No double vision. No recent chest pain. No shortness of breath. No abdominal pain. No bleeding episodes. No blood in urine. No seizure episodes. PHYSICAL EXAMINATION: GENERAL: A pleasant patient without any distress. VITAL SIGNS: Please see below, weight 263.2 pounds, BMI 38.6. HEENT: PERRLA, EOMI. Evaluation of oropharynx showed tongue protrudes midline, low position of soft palate Mallampati 4. NECK: Supple. No JVD. Thyroid is not palpable. 17-1/4 inches in circumference. LUNGS: Clear to percussion and to auscultation. Good air exchange. No wheezing or rhonchi. HEART: S1, S2 regular. No murmurs, gallops or rubs. ABDOMEN: Soft and nontender. Bowel sounds are present. No organomegaly appreciated. EXTREMITIES: No clubbing or cyanosis. E COMMERCE MARKETING MANAGER: Awake, alert, and oriented x3. Cranial nerves 2 to 7 intact. There is no fasciculation or atrophy noted. No focal deficits observed. ASSESSMENT: 1. Loud snoring, witnessed episodes of choking and stop breathing during the sleep, multiple awakenings from sleep, extremely low position of soft palate Mallampati 4, wide neck 17-1/4 inches in circumference, sleepiness during the day with high Catlin Sleepiness Scale of 15. Obstructive sleep apnea hypopnea syndrome. 2. Obesity, BMI 38.6. 3. History of cardiac arrhythmia. 4. History of neurocardiac syncope. 5 status post permanent pacemaker insertion. 6 . History of Mnire's disease. 7. History of vertigo episodes. PLAN: 1. Polysomnography for evaluation of patient's breathing during sleep. 2. Following plan after reading sleep study. 3. Preferable position during sleep on the side. 4. No driving if patient feels any sleepiness. Patient is aware of civil and criminal liability for unsafe driving. 5. Sleep hygiene with regular sleep time for at least 7.5-8 hours. 6. Watching and losing weight. Thank you very much for referring this patient for consultation. Sincerely, Romero Up MD, PhD, FAASM. Diplomat of [place] [employer], Sleep Medicine Board by [place] [employer] [place] [employer] Hotel Staff Member of [facility] Past Medical History Past Medical History: Dialysis Additional Past Medical History / Comment(s): meniere's disease which contributes to vertigo and history of falls. 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 This caused the damage in his heart which lead to a pacemaker in 2001 with device change in 2007 ([facility]). Theorized by doctors HSP brought on by strep throat. Neurocardiac syncope. History of Any Multi-Drug Resistant Organisms: None Reported Past Surgical History: Pacemaker Additional Past Surgical History / Comment(s): pacemaker 2001 with device change in 2007 [facility]. (3 pacemaker surgeries), wisdom teeth extraction Past Anesthesia/Blood Transfusion Reactions: No Reported Reaction Additional Past Anesthesia/Blood Transfusion Reaction / Comment(s): no previous blood transfusions Type of Cardiac Device: Permanent Pacemaker Device Placement Date:: 09/2007 Past Psychological History: No Psychological Hx Reported Smoking Status: Never smoker Past Alcohol Use History: None Reported Past Drug Use History: None Reported - Past Family History Father Family Medical History: Diabetes Mellitus Brother(s) Family Medical History: Diabetes Mellitus Mother Family Medical History: Deep Vein Thrombosis (DVT) Sister(s) Family Medical History: Deep Vein Thrombosis (DVT) Additional Family Medical History / Comment(s): vtach, sister had cardiac ablation, all family snore, dad and whole side of family are diabetic, brother is prediabetic. Medications and Allergies Home Medications Medication Instructions Recorded Confirmed Type Triamterene-Hctz 37.5-25Mg 1 cap PO DAILY 09/22/18 08/29/23 History [Dyazide 37.5-25 Capsule] Amoxicillin 500 mg PO TID 10 Days #30 cap 09/09/23 Rx Allergies Allergy/AdvReac Type Severity Reaction Status Date / Time No Known Allergies Allergy Verified 08/29/23 19:29 Physical Exam Vitals: Vital Signs Temp Pulse Resp BP Pulse Ox 12/14/23 13:37 98.2 F 69 16 117/81 95 Intake and Output 12/13/23 12/14/23 12/14/23 22:59 06:59 14:59 Other: Weight 119.3 kg Sleep Note - Sleep Data ESS Total: 15 - Sleep Note Sleep Note: Temperature: 98.2 F Pulse Rate: 69 Respiratory Rate: 16 Blood Pressure: 117/81 SpO2: 95 Height: 5 ft 9.2 in Weight: 119.3 kg BMI: Neck Circumference: 17.2
== END ==
LOC: 3 N SLEEP 13:13
PROVIDERS: ATTEND Internal Medicine
DX: G47.33 Obstructive sleep apnea (adult) (pediatric) (principal); E66.9 Obesity, unspecified; Z68.38 Body mass index [BMI] 38.0-38.9, adult; Z86.79 Personal history of other diseases of the circulatory system; Z86.69 Personal history of other diseases of the nervous system and sense organs; Z87.19 Personal history of other diseases of the digestive system; Z95.0 Presence of cardiac pacemaker
CPT/HCPCS: 99211

== ENCOUNTER 2024-02-21 15:59 | Emergency (ER) | payer OTHER ==
[2024-02-21] MEDS ORDERED: SODIUM CHLORIDE 0.9% 1,000 ML BAG ONE (17:00)
--- NOTE | 2024-04-09 14:40 | XR ---
Patient Oseas Schilling ID [id number] Order # EXAMINATION TYPE: XR chest 2V DATE OF EXAM: 02/21/2024 COMPARISON: None INDICATION: Chest pain TECHNIQUE: Frontal and lateral views of the chest are obtained. FINDINGS: The heart size is normal. Pacemaker overlies the left chest. The pulmonary vasculature is normal. The lungs are clear. IMPRESSION: 1. No acute pulmonary process.
== END 2024-02-21 21:14 | disposition home or self-care (01) ==
LOC: EC 15:59
DX: R55 Syncope and collapse (principal)
CPT/HCPCS: 71046; 93005; 96374; 99285

== ENCOUNTER → 2024-06-11 | Outpatient (CLI) | payer OTHER ==
--- NOTE | 2024-06-13 12:23 | P.PCN ---
Description of Procedure: CLINICAL: A home sleep apnea test has been done for confirmation of possible obstructive sleep apnea-hypopnea syndrome. DESCRIPTION OF PROCEDURE: RESULTS: Recording time was 9 hours 24 minutes. Evaluation time was 7 hours 50 minutes. Evaluation time is sufficient for making conclusion about results of the test. Raw data of sleep recording has been reviewed and is adequate. Respiratory channel showed 10 apneas and 193 hypopneas. Apnea-hypopnea index was 25.9 per hour. Pulse rate in the range between minimum 58, maximum 116, average 76 by computer calculation. Lowest desaturation was 83%. IMPRESSION: 1. Obstructive Sleep Apnea Hypopnea Syndrome in moderate range. Please see other impressions from consultation. PLAN: 1. The patient should have PAP titration for correction of respiratory abnormallities during sleep. 2. Watching and losing weight. 3. Sleep hygiene with regular time in bed for at least 8 hours. 4. No driving if feeling any sleepiness. Thank you very much for allowing me to participate in the management of your patient. Sincerely, Romero Up MD, PhD, FAASM Diplomat of [place] Sleep Medicine Board of [place] Benefits Sales Consultant of [facility] [place] cc: Jose Farooq DO
== END ==
LOC: 3 N SLEEP 11:00
PROVIDERS: ATTEND Internal Medicine
DX: G47.33 Obstructive sleep apnea (adult) (pediatric) (principal)

== ENCOUNTER 2024-08-03 16:19 | Emergency (ER) | payer OTHER ==
--- NOTE | 2024-08-03 17:34 | ED ---
URI HPI - General Stated Complaint: breathing Time Seen by Provider: 08/03/24 16:27 Source: patient, RN notes reviewed Mode of arrival: ambulatory Limitations: no limitations - History of Present Illness Initial Comments: This is a 39-year-old male presenting with cough x 3 days. Endorses worsening productive cough, difficulty breathing, chills, transient diarrhea. Endorses g oing to urgent care with negative COVID/flu swab. Endorses receiving steroid shot, p.o. azithromycin and inhaler with minimal relief. States he would like chest x-ray to ensure that he does not have pneumonia. Denies fever, chest pain, hemoptysis, nausea/vomiting. - Related Data Home Medications Medication Instructions Recorded Confirmed Triamterene-Hctz 37.5-25Mg 1 cap PO DAILY 09/22/18 08/29/23 [Dyazide 37.5-25 Capsule] Previous Rx's Medication Instructions Recorded Amoxicillin 500 mg PO TID 10 Days #30 cap 09/09/23 Amoxic-Pot Clav 875-125Mg 1 tab PO Q12HR #20 tab 08/03/24 [Augmentin 875-125] Allergies Allergy/AdvReac Type Severity Reaction Status Date / Time No Known Allergies Allergy Verified 08/29/23 19:29 Review of Systems ROS Statement: Those systems with pertinent positive or pertinent negative responses have been documented in the HPI. ROS Other: All systems not noted in ROS Statement are negative. Past Medical History Past Medical History: Dialysis Additional Past Medical History / Comment(s): meniere's disease which contributes to vertigo and history of falls. 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 This caused the damage in his heart which lead to a pacemaker in 2001 with device change in 2007 ([facility]). Theorized by doctors HSP brought on by strep throat. Neurocardiac syncope. History of Any Multi-Drug Resistant Organisms: None Reported Past Surgical History: Pacemaker Additional Past Surgical History / Comment(s): pacemaker 2001 with device change in 2007 [facility]. (3 pacemaker surgeries), wisdom teeth extraction Past Anesthesia/Blood Transfusion Reactions: No Reported Reaction Additional Past Anesthesia/Blood Transfusion Reaction / Comment(s): no previous blood transfusions Type of Cardiac Device: Permanent Pacemaker Device Placement Date:: 09/2007 Past Psychological History: No Psychological Hx Reported Smoking Status: Never smoker Past Alcohol Use History: None Reported Past Drug Use History: None Reported - Past Family History Father Family Medical History: Diabetes Mellitus Brother(s) Family Medical History: Diabetes Mellitus Mother Family Medical History: Deep Vein Thrombosis (DVT) Sister(s) Family Medical History: Deep Vein Thrombosis (DVT) Additional Family Medical History / Comment(s): vtach, sister had cardiac ablation, all family snore, dad and whole side of family are diabetic, brother is prediabetic. General Exam General appearance: alert, in no apparent distress Head exam: Present: atraumatic, normocephalic, normal inspection Eye exam: Present: normal appearance, PERRL, EOMI. Absent: scleral icterus, conjunctival injection, periorbital swelling ENT exam: Present: normal exam, mucous membranes moist Neck exam: Present: normal inspection. Absent: tenderness, meningismus, lymphadenopathy Respiratory exam: Present: wheezes, decreased breath sounds, prolonged expiratory. Absent: respiratory distress, rales, rhonchi, stridor Cardiovascular Exam: Present: regular rate, normal rhythm, normal heart sounds. Absent: systolic murmur, diastolic murmur, rubs, gallop, clicks GI/Abdominal exam: Present: soft, normal bowel sounds. Absent: distended, tenderness, guarding, rebound, rigid Extremities exam: Present: normal inspection, full ROM, normal capillary refill. Absent: tenderness, pedal edema, joint swelling, calf tenderness Back exam: Present: normal inspection Neurological exam: Present: alert, oriented X3, CN II-XII intact Psychiatric exam: Present: normal affect, normal mood Skin exam: Present: warm, dry, intact, normal color. Absent: rash Course Vital Signs 08/03/24 08/03/24 08/03/24 17:31 19:41 19:52 Temperature 101.1 F H Pulse Rate 93 76 80 Respiratory 20 Rate Blood Pressure 126/67 O2 Sat by Pulse 97 Oximetry 08/03/24 20:16 Temperature 99.1 F Pulse Rate 85 Respiratory 18 Rate Blood Pressure 130/72 O2 Sat by Pulse 99 Oximetry Medical Decision Making - Medical Decision Making Was pt. sent in by a medical professional or institution (, PA, GENERAL MANAGER IN TRAINING, urgent care, hospital, or fdc...) When possible be specific @ -No Did you speak to anyone other than the patient for history (EMS, parent, family, police, friend...)? What history was obtained from this source @ -No Did you review nursing and triage notes (agree or disagree)? Why? @ -I reviewed and agree with nursing and triage notes Were old charts reviewed (outside hosp., previous admission, EMS record, old EKG, old radiological studies, urgent care reports/EKG's, fdc records)? Report findings @ -No old charts were reviewed Differential Diagnosis (chest pain, altered mental status, abdominal pain women, abdominal pain men, vaginal bleeding, weakness, fever, dyspnea, syncope, headache, dizziness, GI bleed, back pain, seizure, CVA, palpatations, mental health, musculoskeletal)? @ -Differential Fever: Pneumonia, viral URI, endocarditis, myocarditis, pericarditis, otitis, s inusitis, peritonsillar Abscess, retropharyngeal Abscess, epiglottitis, peritonitis, appendicitis, Megan cystitis, diverticulitis, hepatitis, colitis, UTI, PID, TOA, pyelonephritis, prostatitis, epididymitis, meningitis, encephalitis, pulmonary embolism, CVA, thyroid storm, pancreatitis, adrenal crisis, cavernous sinus thrombosis, this is not meant to be an all-inclusive list. EKG interpreted by me (3pts min.). @ -Not done X-rays interpreted by me (1pt min.). @ - CXR shows left perihilar infiltrate indicating pneumonia. CT interpreted by me (1pt min.). @ -None done U/S interpreted by me (1pt. min.). @ -None done What testing was considered but not performed or refused? (CT, X-rays, U/S, labs)? Why? @ -None What meds were considered but not given or refused? Why? @ -None Did you discuss the management of the patient with other professionals (professionals i.e. , PA, GENERAL MANAGER IN TRAINING, lab, RT, psych nurse, licensed social worker, rotary cutter operator, teacher, campus police officer, nurse case management)? Give summary @ -No Was smoking cessation discussed for >3mins.? @ -No Was critical care preformed (if so, how long)? @ -No Were there social determinants of health that impacted care today? How? (Homelessness, low income, unemployed, alcoholism, drug addiction, transportation, low edu. Level, literacy, decrease access to med. care, assisted, rehab)? @ -No Was there de-escalation of care discussed even if they declined (Discuss DNR or withdrawal of care, Hospice)? DNR status @ -No What co-morbidities impacted this encounter? (DM, HTN, Smoking, COPD, CAD, Cancer, CVA, ARF, Chemo, Hep., AIDS, mental health diagnosis, sleep apnea, morbid obesity)? @ -None Was patient admitted / discharged? Hospital course, mention meds given and route, prescriptions, significant lab abnormalities, going to OR and other pertinent info. @ -Cepheid test negative. CXR shows left perihilar infiltrate indicating pneumonia. Patient provided IM Solu-Medrol, DuoNeb and p.o. Tylenol for fever. Also given IM Rocephin for pneumonia. Augmentin sent to patient's pharmacy. Advised continue use of previously prescribed azithromycin along with Augmentin. Confirmed with patient that he is not or has ever been a dialysis patient. Discussed patient with Dr. Carney. Undiagnosed new problem with uncertain prognosis? @ -No Drug Therapy requiring intensive monitoring for toxicity (Heparin, Nitro, In sulin, Cardizem)? @ -No Were any procedures done? @ -No Diagnosis/symptom? @ -Pneumonia Acute, or Chronic, or Acute on Chronic? @ -Acute Uncomplicated (without systemic symptoms) or Complicated (systemic symptoms)? @ -Complicated Side effects of treatment? @ -No Exacerbation, Progression, or Severe Exacerbation? @ -No Poses a threat to life or bodily function? How? (Chest pain, [place], [place], pneumonia, PE, COPD, DKA, ARF, appy, cholecystitis, CVA, Diverticulitis, Homicidal, Suicidal, threat to staff... and all critical care pts) @ -Pneumonia, respiratory failure - Lab Data Lab Results 08/03/24 Range/Units 17:36 Influenza Type A (PCR) Not Detected (Not Detectd) Influenza Type B (PCR) Not Detected (Not Detectd) RSV (PCR) Not Detected (Not Detectd) SARS-CoV-2 (PCR) Not Detected (Not Detectd) Disposition Clinical Impression: Pneumonia Disposition: HOME SELF-CARE Condition: Good Instructions (If sedation given, give patient instructions): Community Acquired Pneumonia (ED) Prescriptions: Amoxic-Pot Clav 875-125Mg [Augmentin 875-125] 1 tab PO Q12HR #20 tab Is patient prescribed a controlled substance at d/c from ED?: No Referrals: Jose Farooq DO [Primary Care Provider] - 1-2 days Time of Disposition: 19:45
[2024-08-03] MEDS: methylPREDNISolone SOD SUCCI 125 MG/2 ML VIAL IM ONE (18:27)
[2024-08-03] MEDS: ACETAMINOPHEN TAB 325 MG TAB PO STA (18:31)
[2024-08-03 18:58] LABS: Influenza A Not Detected (Not Detectd); Influenza B Not Detected (Not Detectd); RSV Not Detected (Not Detectd)
--- NOTE | 2024-08-03 19:40 | XR ---
EXAMINATION TYPE: XR chest 2V DATE OF EXAM: 08/03/2024 5:56 PM COMPARISON: 02/21/2024 CLINICAL INDICATION: Male, 39 years old with history of Cough, TECHNIQUE: XR chest 2V view(s) obtained. FINDINGS: The heart size is normal. The pulmonary vasculature is normal. There is a mild infiltrate under the left side pacemaker. IMPRESSION: 1. Left perihilar infiltrate. Correlate for pneumonia. Follow-up is recommended [facility], Workstation: [facility], 08/03/2024 7:37 PM
[2024-08-03] MEDS: IPRATROPIUM-ALBUTEROL 3 ML NEB INHALATION STA (19:41)
[2024-08-03] MEDS: cefTRIAXone 1,000 MG VIAL (IM USE) IM STA (20:08)
[2024-08-03 20:17] VITALS: BP 130/72; PULSE 85; RESP 18; TEMP 99.1
== END 2024-08-03 20:17 | disposition home or self-care (01) ==
LOC: EC 16:19
DX: J18.9 Pneumonia, unspecified organism (principal)
CPT/HCPCS: 99285 ×2; 96372 ×2; 99284; 94640; 93005; 87636; 71046; J0696; J2919

== ENCOUNTER 2024-08-10 06:09 | Inpatient (IN) | payer OTHER ==
--- NOTE | 2024-08-10 07:10 | ED ---
General Adult HPI - General Chief complaint: Upper Respiratory Infection Stated complaint: Difficulty Breathing Time Seen by Provider: 08/10/24 06:25 Source: patient Mode of arrival: ambulatory - History of Present Illness Initial comments: 39-year-old male presents to the emergency department for evaluation of shortness of breath and upper respiratory symptoms. He reports that the symptoms have been going on for little over a week. He was recently diagnosed with pneumonia and has been on Augmentin. He states that he finished a course of azithromycin as well. He is currently on prednisone. He reports cough that is persistent. He denies any known fever at home. - Related Data Home Medications Medication Instructions Recorded Confirmed Betahistine (Unknown Dose) 1 tab PO TID 08/10/24 08/10/24 Seasonal Shield 2 cap PO BID 08/10/24 08/10/24 Triamterene/Hydrochlorothiazid 1 tab PO DAILY 08/10/24 08/10/24 [Triamterene-Hctz 37.5-25 mg Tb] Vitamin B Complex 1 cap PO DAILY 08/10/24 08/10/24 predniSONE [Deltasone] 20 mg PO BID 08/10/24 08/10/24 Previous Rx's Medication Instructions Recorded Amoxic-Pot Clav 875-125Mg 1 tab PO Q12HR #20 tab 08/03/24 [Augmentin 875-125] Famotidine [Pepcid] 20 mg PO BID tab 08/13/24 Loratadine [Claritin] 10 mg PO DAILY tab 08/13/24 Allergies Allergy/AdvReac Type Severity Reaction Status Date / Time Penicillins Allergy Mild Rash/Hives Verified 08/10/24 10:06 Review of Systems ROS Statement: Those systems with pertinent positive or pertinent negative responses have been documented in the HPI. ROS Other: All systems not noted in ROS Statement are negative. Past Medical History Past Medical History: Dialysis Additional Past Medical History / Comment(s): meniere's disease which contributes to vertigo and history of falls. 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 This caused the damage in his heart which lead to a pacemaker in 2001 with device change in 2007 ([facility]). Theorized by doctors HSP brought on by strep throat. Neurocardiac syncope. History of Any Multi-Drug Resistant Organisms: None Reported Past Surgical History: Pacemaker Additional Past Surgical History / Comment(s): pacemaker 2001 with device change in 2007 [facility]. (3 pacemaker surgeries), wisdom teeth extraction Past Anesthesia/Blood Transfusion Reactions: No Reported Reaction Additional Past Anesthesia/Blood Transfusion Reaction / Comment(s): no previous blood transfusions Type of Cardiac Device: Permanent Pacemaker Device Placement Date:: 09/2007 Past Psychological History: No Psychological Hx Reported Smoking Status: Never smoker Past Alcohol Use History: None Reported Past Drug Use History: None Reported - Past Family History Father Family Medical History: Diabetes Mellitus Brother(s) Family Medical History: Diabetes Mellitus Mother Family Medical History: Deep Vein Thrombosis (DVT) Sister(s) Family Medical History: Deep Vein Thrombosis (DVT) Additional Family Medical History / Comment(s): vtach, sister had cardiac ablation, all family snore, dad and whole side of family are diabetic, brother is prediabetic. General Exam Limitations: no limitations General appearance: alert, in no apparent distress Head exam: Present: atraumatic, normocephalic, normal inspection Eye exam: Present: normal appearance, PERRL, EOMI. Absent: scleral icterus, conjunctival injection, periorbital swelling ENT exam: Absent: TM's normal bilaterally (Erythematous right TM) Respiratory exam: Present: wheezes, rhonchi. Absent: respiratory distress, rales, stridor Cardiovascular Exam: Present: regular rate, normal rhythm, normal heart sounds. Absent: systolic murmur, diastolic murmur, rubs, gallop, clicks Extremities exam: Present: normal inspection, full ROM, normal capillary refill. Absent: tenderness, pedal edema, joint swelling, calf tenderness Neurological exam: Present: alert, oriented X3 Psychiatric exam: Present: normal affect, normal mood Skin exam: Present: warm, dry, intact, normal color. Absent: rash Course Vital Signs 08/10/24 08/10/24 08/10/24 06:13 08:18 08:27 Temperature 99.9 F H 98.5 F Pulse Rate 82 78 77 Respiratory 22 18 18 Rate Blood Pressure 142/93 124/76 O2 Sat by Pulse 92 L 93 L Oximetry 01/31/25 01/31/25 01/31/25 08:34 11:53 12:01 Temperature Pulse Rate 78 85 84 Respiratory 18 18 Rate Blood Pressure O2 Sat by Pulse Oximetry 08/10/24 12:16 Temperature 98.6 F Pulse Rate 81 Respiratory 18 Rate Blood Pressure 136/74 O2 Sat by Pulse 93 L Oximetry Medical Decision Making - Medical Decision Making Was pt. sent in by a medical professional or institution (, [place], OXYGEN EQUIPMENT TECHNICIAN, urgent care, hospital, or detention...) When possible be specific @ -[No] Did you speak to anyone other than the patient for history (EMS, parent, family, police, friend...)? What history was obtained from this source @ -[No] Did you review nursing and triage notes (agree or disagree)? Why? @ -[I reviewed and agree with nursing and triage notes] Were old charts reviewed (outside hosp., previous admission, EMS record, old EKG, old radiological studies, urgent care reports/EKG's, detention records)? Report findings @ -[No old charts were reviewed] Differential Diagnosis (chest pain, altered mental status, abdominal pain women, abdominal pain men, vaginal bleeding, weakness, fever, dyspnea, syncope, headache, dizziness, GI bleed, back pain, seizure, CVA, palpatations, mental health, musculoskeletal)? @ -[Differential Dyspnea: Coronary syndrome, arrhythmia, tamponade, asthma, COPD, pulmonary embolism, pneumonia, pneumothorax, pulmonary effusion, anaphylaxis, diabetic ketoacidosis, flailed chest, pulmonary contusion, diaphragmatic rupture, anemia, neuromuscular, this is not meant to be an all-inclusive list. ] EKG interpreted by me (3pts min.). @ -EKG at 623 shows sinus rhythm rate 81, NJ 152, QRS 104, QTQTc [id number] X-rays interpreted by me (1pt min.). @ -Chest x-ray shows CT interpreted by me (1pt min.). @ -[None done] U/S interpreted by me (1pt. min.). @ -[None done] What testing was considered but not performed or refused? (CT, X-rays, U/S, labs)? Why? @ -[None] What meds were considered but not given or refused? Why? @ -[None] Did you discuss the management of the patient with other professionals (professionals i.e. , PA, OXYGEN EQUIPMENT TECHNICIAN, lab, RT, psych nurse, health and social care teacher, cinema operator, teacher, legal officer, case management social worker)? Give summary @ -[Case discussed with [facility] was accepting of the admission.] Was smoking cessation discussed for >3mins.? @ -[No] Was critical care preformed (if so, how long)? @ -[No] Were there social determinants of health that impacted care today? How? (Homelessness, low income, unemployed, alcoholism, drug addiction, transportation, low edu. Level, literacy, decrease access to med. care, long term, rehab)? @ -[No] Was there de-escalation of care discussed even if they declined (Discuss DNR or withdrawal of care, Hospice)? DNR status @ -[No] What co-morbidities impacted this encounter? (DM, HTN, Smoking, COPD, CAD, Cancer, CVA, ARF, Chemo, Hep., AIDS, mental health diagnosis, sleep apnea, morbid obesity)? @ -[None] Was patient admitted / discharged? Hospital course, mention meds given and route, prescriptions, significant lab abnormalities, going to OR and other pertinent info. @ -[Patient presented to the emergency department for evaluation of shortness of breath and upper respiratory symptoms. Symptoms ongoing for 1 week. Shortness of breath developed this morning. He denies any fever at home. Laboratory studies obtained.] Undiagnosed new problem with uncertain prognosis? @ -[No] Drug Therapy requiring intensive monitoring for toxicity (Heparin, Nitro, Insulin, Cardizem)? @ -[No] Were any procedures done? @ -[No] Diagnosis/symptom? @ -[default] Acute, or Chronic, or Acute on Chronic? @ -[default] Uncomplicated (without systemic symptoms) or Complicated (systemic symptoms)? @ -[default] Side effects of treatment? @ -[No] Exacerbation, Progression, or Severe Exacerbation? @ -[No] Poses a threat to life or bodily function? How? (Chest pain, [place], [place], pneumonia, PE, COPD, DKA, ARF, appy, cholecystitis, CVA, Diverticulitis, Homicidal, Suicidal, threat to staff... and all critical care pts) @ -[No] - Lab Data Result diagrams: 08/12/24 07:08 08/12/24 07:08 Lab Results 08/10/24 08/10/2425 Range/Units 06:30 06:30 06:30 WBC 11.5 H (3.8-10.6) k/uL RBC 5.14 (4.30-5.90) m/uL Hgb 15.1 (13.0-17.5) gm/dL Hct 43.9 (39.0-53.0) % MCV 85.5 (80.0-100.0) fL MCH 29.4 (25.0-35.0) pg MCHC 34.4 (31.0-37.0) g/dL RDW 13.3 (11.5-15.5) % Plt Count 243 (150-450) k/uL MPV 7.0 Neutrophils % 73 % Lymphocytes % 18 % Monocytes % 6 % Eosinophils % 2 % Basophils % 1 % Neutrophils # 8.4 H (1.3-7.7) k/uL Lymphocytes # 2.0 (1.0-4.8) k/uL Monocytes # 0.6 (0-1.0) k/uL Eosinophils # 0.2 (0-0.7) k/uL Basophils # 0.1 (0-0.2) k/uL PT 10.5 (10.0-12.5) sec INR 0.9 (<1.2) APTT 24.5 (22.0-30.0) sec D-Dimer (<0.60) mg/L FEU Sodium 138 (137-145) mmol/L Potassium 3.8 (3.5-5.1) mmol/L Chloride 99 (98-107) mmol/L Carbon Dioxide 29 (22-30) mmol/L Anion Gap 10 mmol/L BUN 16 (9-20) mg/dL Creatinine 0.85 (0.66-1.25) mg/dL Est GFR (CKD-EPI)AfAm >90 (>60 ml/min/1.73 sqM) Est GFR (CKD-EPI)NonAf >90 (>60 ml/min/1.73 sqM) Glucose 116 H (74-99) mg/dL Plasma Lactic Acid Griffin (0.7-2.0) mmol/L Calcium 9.3 (8.4-10.2) mg/dL Total Bilirubin 1.1 (0.2-1.3) mg/dL AST 25 (17-59) U/L ALT 35 (4-49) U/L Alkaline Phosphatase 53 (38-126) U/L Total Protein 7.1 (6.3-8.2) g/dL Albumin 4.0 (3.5-5.0) g/dL Influenza Type A (PCR) (Not Detectd) Influenza Type B (PCR) (Not Detectd) RSV (PCR) (Not Detectd) SARS-CoV-2 (PCR) (Not Detectd) 08/10/24 08/10/24 08/10/24 Range/Units 06:30 06:30 06:30 WBC (3.8-10.6) k/uL RBC (4.30-5.90) m/uL Hgb (13.0-17.5) gm/dL Hct (39.0-53.0) % MCV (80.0-100.0) fL MCH (25.0-35.0) pg MCHC (31.0-37.0) g/dL RDW (11.5-15.5) % Plt Count (150-450) k/uL MPV Neutrophils % % Lymphocytes % % Monocytes % % Eosinophils % % Basophils % % Neutrophils # (1.3-7.7) k/uL Lymphocytes # (1.0-4.8) k/uL Monocytes # (0-1.0) k/uL Eosinophils # (0-0.7) k/uL Basophils # (0-0.2) k/uL PT (10.0-12.5) sec INR (<1.2) APTT (22.0-30.0) sec D-Dimer 0.65 H (<0.60) mg/L FEU Sodium (137-145) mmol/L Potassium (3.5-5.1) mmol/L Chloride (98-107) mmol/L Carbon Dioxide (22-30) mmol/L Anion Gap mmol/L BUN (9-20) mg/dL Creatinine (0.66-1.25) mg/dL Est GFR (CKD-EPI)AfAm (>60 ml/min/1.73 sqM) Est GFR (CKD-EPI)NonAf (>60 ml/min/1.73 sqM) Glucose (74-99) mg/dL Plasma Lactic Acid Griffin 1.2 (0.7-2.0) mmol/L Calcium (8.4-10.2) mg/dL Total Bilirubin (0.2-1.3) mg/dL AST (17-59) U/L ALT (4-49) U/L Alkaline Phosphatase (38-126) U/L Total Protein (6.3-8.2) g/dL Albumin (3.5-5.0) g/dL Influenza Type A (PCR) Not Detected (Not Detectd) Influenza Type B (PCR) Not Detected (Not Detectd) RSV (PCR) Not Detected (Not Detectd) SARS-CoV-2 (PCR) Not Detected (Not Detectd) Disposition Clinical Impression: Pneumonia, Failure of outpatient treatment Disposition: ADMITTED IP TO THIS HOSP Condition: Stable Is patient prescribed a controlled substance at d/c from ED?: No
[2024-08-10 07:13] LABS: Basophils # (A) 0.1 k/uL (0-0.2); Basophils % (A) 1 %; Eosinophils # (A) 0.2 k/uL (0-0.7); Eosinophils % (A) 2 %; HCT 43.9 % (39.0-53.0); HGB 15.1 gm/dL (13.0-17.5); Lymphocytes % (A) 18 %; MCH 29.4 pg (25.0-35.0); MCHC 34.4 g/dL (31.0-37.0); MCV 85.5 fL (80.0-100.0); Monocytes # (A) 0.6 k/uL (0-1.0); Monocytes % (A) 6 %; Neutrophils # (A) 8.4 k/uL (1.3-7.7); Neutrophils % (A) 73 %; Platelet Count 243 k/uL (150-450); RBC 5.14 m/uL (4.30-5.90); RDW 13.3 % (11.5-15.5); WBC 11.5 k/uL (3.8-10.6)
[2024-08-10 07:28] LABS: ALT 35 U/L (4-49); AST 25 U/L (17-59); African American GFR (CKD) >90 (>60 ml/min/1.73 sqM); Alkaline Phosphatase 53 U/L (38-126); Anion Gap 10 mmol/L; Blood Urea Nitrogen 16 mg/dL (9-20); Calcium 9.3 mg/dL (8.4-10.2); Carbon Dioxide 29 mmol/L (22-30); Chloride 99 mmol/L (98-107); Glucose 116 mg/dL (74-99); Non-African American GFR(CKD) >90 (>60 ml/min/1.73 sqM); Potassium 3.8 mmol/L (3.5-5.1); Sodium 138 mmol/L (137-145); Total Bilirubin 1.1 mg/dL (0.2-1.3); Total Protein 7.1 g/dL (6.3-8.2)
[2024-08-10 07:32] LABS: INR 0.9 (<1.2); Partial Thromboplastin Time 24.5 sec (22.0-30.0); Prothrombin Time 10.5 sec (10.0-12.5)
[2024-08-10] MEDS: methylPREDNISolone SOD SUCCI 125 MG/2 ML VIAL IV STA (07:32)
[2024-08-10 07:52] LABS: Influenza A Not Detected (Not Detectd); Influenza B Not Detected (Not Detectd); RSV Not Detected (Not Detectd)
--- NOTE | 2024-08-10 07:58 | XR ---
EXAMINATION TYPE: XR chest 2V DATE OF EXAM: 08/10/2024 7:54 AM COMPARISON: Chest radiographs from 08/03/2024 TECHNIQUE: XR chest 2V Frontal and lateral views of the chest. CLINICAL INDICATION:Male, 39 years old with history of difficulty breathing; FINDINGS: Lungs/Pleura: No pleural effusion or pneumothorax. Similar left midlung patchy airspace opacities whi ch is partially obscured by cardiac pacemaking device. Pulmonary vascularity: Unremarkable. Heart/mediastinum: Cardiomediastinal silhouette is unremarkable. Two lead cardiac conduction device o verlying the left hemithorax with lead tips projecting over the right ventricle and right atrium. Musculoskeletal: No acute osseous pathology. IMPRESSION: Stable left midlung patchy opacities concerning for possible pneumonia. [facility], , 08/10/2024 7:56 AM
[2024-08-10] MEDS: IPRATROPIUM-ALBUTEROL 3 ML NEB INHALATION STA (08:26)
--- NOTE | 2024-08-10 09:47 | CT ---
EXAMINATION TYPE: CT chest angio for PE CT DLP: 682.1 mGycm, Automated exposure control for dose reduction was used. DATE OF EXAM: 08/10/2024 9:33 AM COMPARISON: Chest radiograph from same day. CLINICAL INDICATION:Male, 39 years old with history of dyspnea, pain; maribell TECHNIQUE/CONTRAST: CTA scan of the thorax is performed with IV Contrast, patient injected with 100 mL of Isovue 370, pul monary embolism protocol. MIP images are created and reviewed. FINDINGS: Pulmonary Artery: The pulmonary artery is of normal size. Evaluation of the pulmonary arteries is ess entially nondiagnostic due to poor bolus timing. Lungs/Pleura: No pleural effusion or pneumothorax. The right lung is clear. Tree-in-bud nodular opaci ties throughout the left lung with more focal consolidation within the left upper lobe. Airway: Large airways are patent. Heart: Heart is within normal limits for size.. Left chest wall cardiac injection device with 2 leads terminating in the right ventricle and right atrium. No pericardial effusion. Vasculature: No evidence of aortic aneurysm. Mediastinum: Enlarged AP window lymph node measuring 1.5 cm short axis with additional enlarged left hilar lymph nodes measuring up to 1.1 cm short axis. Musculoskeletal: No acute osseous abnormalities. Remote right-sided healed rib fractures. Soft Tissues: Unremarkable. Lower neck: No significant findings. Upper Abdomen: No significant findings. IMPRESSION: 1. Nondiagnostic evaluation of the pulmonary arteries due to poor bolus timing. Consider repeat CTA v ersus VQ scan as clinically indicated. 2. Tree-in-bud nodular opacities throughout the left lung with additional focal consolidation within the left upper lobe. Most consistent with an infectious pulmonary process. 3. Mediastinal and left hilar adenopathy which is likely reactive to #2. [facility], , 08/10/2024 9:44 AM
[2024-08-10] MEDS ORDERED: PNEUMONIA PROTOCOL UTILIZED 1 EACH MISC PO PRN (09:48)
[2024-08-10] MEDS: SODIUM CHLORIDE 0.9% 1,000 ML IV SCH (10:04)
[2024-08-10] MEDS ORDERED: IPRATROPIUM-ALBUTEROL 3 ML NEB INHALATION PRN (10:31)
[2024-08-10] MEDS: AZITHROMYCIN 500 MG in SODIUM CHLORIDE 0.9% 250 ML IVPB STA (10:41)
[2024-08-10] MEDS: IPRATROPIUM-ALBUTEROL 3 ML NEB INHALATION SCH (11:51)
[2024-08-10] MEDS: methylPREDNISolone SOD SUCCI 125 MG/2 ML VIAL IV SCH (17:24)
--- NOTE | 2024-08-10 20:31 | P.CNPUL ---
History of Present Illness Consult date: 08/10/24 Reason for consult: dyspnea History of present illness: This is a 39-year-old male patient, coming in with increased cough congestion and worsening shortness of breath over the past 10 days. The patient has received outpatient antibiotics and I believe he was given IM antibiotics and a course of Augmentin on outpatient basis without any significant improvement. Denies having any chronic lung disease. No history of asthma. Notes of COPD. Lifetime non-smoker. No occupational exposures. The patient has no sick contacts. No travel history. The white cell count 11.5, normal coagulation profile, D-dimer is 0.6. The viral screen has been negative. CT of the chest was done and shows no evidence of any pulm embolism. At the same time, the patient has tree-in-bud nodular pulmonary filtrates involving the left upper and left lower lobe along with some additional focal consolidation within the left upper lobe. There is also some reactive mediastinal and left hilar lymphadenopathy with the largest lymph node measuring 1.1 cm in the left hilum and 1.5 cm in the AP window. Based on this, the patient was started on Rocephin and Zithromax. At the time of my evaluation, the patient was actively bronchospastic and wheezy and IV Solu-Medrol was added. Procalcitonin level is to be checked. No recurrent pneumonias. No history of immunosuppression. No connective tissue disease. Review of Systems Constitutional: Reports fatigue Eyes: denies as per HPI, denies blurred vision, denies bulging eye, denies decreased vision, denies diplopia, denies discharge, denies dry eye, denies irritation, denies itching, denies pain, denies photophobia, denies loss of peripheral vision, denies loss of vision, denies tunnel vision/blind spots Ears: deny: decreased hearing, ear discharge, earache, tinnitus Ears, nose, mouth and throat: Reports as per HPI Breasts: absent: as per HPI, gynecomastia Cardiovascular: Reports decreased exercise tolerance Respiratory: Reports congestion, Reports cough, Reports dyspnea, Reports wheezing Gastrointestinal: Reports as per HPI Genitourinary: Reports as per HPI Musculoskeletal: Reports as per HPI Musculoskeletal: absent: ankle pain, ankle stiffness, ankle swelling, as per HPI, elbow pain, elbow stiffness, elbow swelling, foot pain, foot stiffness, foot swelling, hand pain, hand stiffness, hand swelling, hip pain, hip stiffness, hip swelling, knee pain, knee stiffness, knee swelling, shoulder pain, shoulder stiffness, shoulder swelling, wrist pain, wrist stiffness, wrist swelling Integumentary: Reports as per HPI Neurological: Reports as per HPI Psychiatric: Reports as per HPI Endocrine: Reports as per HPI Hematologic/Lymphatic: Reports as per HPI Allergic/Immunologic: Reports as per HPI Past Medical History Past Medical History: Dialysis Additional Past Medical History / Comment(s): meniere's disease which contributes to vertigo and history of falls. 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 This caused the damage in his heart which lead to a pacemaker in 2001 with device change in 2007 ([facility]). Theorized by doctors HSP brought on by strep throat. Neurocardiac syncope. History of Any Multi-Drug Resistant Organisms: None Reported Past Surgical History: Pacemaker Additional Past Surgical History / Comment(s): pacemaker 2001 with device change in 2007 [facility]. (3 pacemaker surgeries), wisdom teeth extraction Past Anesthesia/Blood Transfusion Reactions: No Reported Reaction Additional Past Anesthesia/Blood Transfusion Reaction / Comment(s): no previous blood transfusions Type of Cardiac Device: Permanent Pacemaker Device Placement Date:: 09/2007 Past Psychological History: No Psychological Hx Reported Smoking Status: Never smoker Past Alcohol Use History: None Reported Past Drug Use History: None Reported - Past Family History Father Family Medical History: Diabetes Mellitus Brother(s) Family Medical History: Diabetes Mellitus Mother Family Medical History: Deep Vein Thrombosis (DVT) Sister(s) Family Medical History: Deep Vein Thrombosis (DVT) Additional Family Medical History / Comment(s): vtach, sister had cardiac ablation, all family snore, dad and whole side of family are diabetic, brother is prediabetic. Medications and Allergies Home Medications Medication Instructions Recorded Confirmed Type Amoxic-Pot Clav 875-125Mg 1 tab PO Q12HR #20 tab 08/03/24 08/10/24 Rx [Augmentin 875-125] Betahistine (Unknown Dose) 1 tab PO TID 08/10/24 08/10/24 History Seasonal Shield 2 cap PO BID 08/10/24 08/10/24 History Triamterene/Hydrochlorothiazid 1 tab PO DAILY 08/10/24 08/10/24 History [Triamterene-Hctz 37.5-25 mg Tb] Vitamin B Complex 1 cap PO DAILY 08/10/24 08/10/24 History predniSONE [Deltasone] 20 mg PO BID 08/10/24 08/10/24 History Allergies Allergy/AdvReac Type Severity Reaction Status Date / Time Penicillins Allergy Mild Rash/Hives Verified 08/10/24 10:06 Physical Exam Vitals: Vital Signs Temp Pulse Pulse Resp BP BP Pulse Ox 08/10/24 20:21 88 08/10/24 20:12 87 08/10/24 19:05 98.5 F 87 18 151/67 92 L 08/10/24 15:53 88 08/10/24 15:43 86 08/10/24 14:00 17 08/10/24 13:56 98.3 F 83 16 153/70 96 08/10/24 12:16 98.6 F 81 18 136/74 93 L 08/10/24 12:01 84 18 08/10/24 11:53 85 18 08/10/24 08:34 78 08/10/24 08:27 77 18 08/10/24 08:18 98.5 F 78 18 124/76 93 L 08/10/24 06:13 99.9 F H 82 22 142/93 92 L Intake and Output 08/10/24 08/10/24 08/10/24 06:59 14:59 22:59 Intake Total 118 Balance 118 Intake: Oral 118 Other: # Voids 5 Weight 121.109 kg 121.109 kg The patient appeared well nourished and normally developed. Vital signs as documented. Patient is currently on room air oxygen. Head exam is unremarkable. No scleral icterus or corneal arcus noted. Neck is without jugular venous distension, thyromegaly, or carotid bruits. Carotid upstrokes are brisk bilaterally. Lungs diminished breath sounds along with diffuse expiratory wheezes throughout the lung charlton bilaterally. Cardiac exam reveals the PMI to be normally sized and situated. Rhythm is regular. First and second heart sounds normal. No murmurs, rubs or gallops. Abdominal exam reveals normal bowel sounds, no masses, no organomegaly and no aortic enlargement. Extremities are nonedematous and both femoral and pedal pulses are normal. Examination of the skin revealed no evidence of significant rashes, suspicious appearing nevi or other concerning lesions. Neurologically, the patient is awake and alert and the patient does not have any focal neurological deficit. Cranial nerves are essentially intact. Results - Laboratory Findings CBC and BMP: 08/10/24 06:30 08/10/24 06:30 PT/INR, D-dimer PT 10.5 sec (10.0-12.5) 08/10/24 06:30 INR 0.9 (<1.2) 08/10/24 06:30 D-Dimer 0.65 mg/L FEU (<0.60) H 08/10/24 06:30 Abnormal lab findings: Abnormal Labs 08/10/24 08/10/24 08/10/24 06:30 06:30 06:30 WBC 11.5 H Neutrophils # 8.4 H D-Dimer 0.65 H Glucose 116 H - Diagnostic Findings Chest x-ray: image reviewed CT scan - chest: image reviewed Assessment and Plan Plan: Acute left lung pneumonia with tree-in-bud nodular pulmonary infiltrates involving the left upper and left lower lobe and some reactive left AP window a nd hilar lymphadenopathy, nonspecific finding. Consider infectious pneumonia, likely bacterial. Failed outpatient antibiotics with Augmentin. Acute shortness of breath secondary to above. The patient is also actively bronchospastic and wheezy. 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
[2024-08-10] MEDS: BETAHISTINE PO SCH (21:16)
[2024-08-10] MEDS: [UNRECOGNIZED DRUG - OTHER] PO SCH (21:16)
--- NOTE | 2024-08-11 06:52 | XR ---
EXAMINATION TYPE: XR chest 2V DATE OF EXAM: 08/11/2024 6:37 AM COMPARISON: Chest radiographs 08/10/2024, CTA chest 08/10/2024 TECHNIQUE: XR chest 2V Frontal and lateral views of the chest. CLINICAL INDICATION:Male, 39 years old with history of pneumonia; FINDINGS: Lungs/Pleura: No pleural effusion or pneumothorax. Decreased airspace opacities within the left midlu ng. Pulmonary vascularity: Unremarkable. Heart/mediastinum: Cardiomediastinal silhouette is unremarkable. Two lead cardiac conduction device o verlying the left hemithorax with lead tips projecting over the right ventricle and right atrium. Musculoskeletal: No acute osseous pathology. IMPRESSION: Decreased airspace opacities within the left midlung. [facility], , 08/11/2024 6:49 AM
[2024-08-11] MEDS: AZITHROMYCIN 500 MG TAB PO SCH (08:46)
--- NOTE | 2024-08-11 10:39 | P.HPIM ---
History of Present Illness 39-year-old pleasant female complains of cough congestion worsening shortness of breath has been going on for about 5 days patient is a little bronchospastic and wheezing on exam patient is a CT of the chest which did not show any clear pneumonic infiltrate but there is some nonspecific infiltrate with lymphadenopathy. Pulmonology evaluated patient agree patient has pneumonia and also bronchospasm patient started on Rocephin and azithromycin. Patient was started on Solu-Medrol by pulmonary because of severe wheezing and bronchospasm. Patient D-dimer was 0.[address] angio of the chest did not show any pulm embolism. REVIEW OF SYSTEMS: All other systems are negative except those mentioned in the HPI PHYSICAL EXAMINATION: GENERAL: The patient is alert and oriented x3, not in any acute distress. Well developed, well nourished. HEENT: Pupils are round and equally reacting to light. EOMI. No scleral icterus. No conjunctival pallor. Normocephalic, atraumatic. No pharyngeal erythema. No thyromegaly. CARDIOVASCULAR: S1 and S2 present. No murmurs, rubs, or gallops. PULMONARY significantly decreased air entry with expiratory wheezing on exam ABDOMEN: Soft, nontender, nondistended, normoactive bowel sounds. No palpable organomegaly. MUSCULOSKELETAL: No joint swelling or deformity. EXTREMITIES: No cyanosis, clubbing, or pedal edema. NEUROLOGICAL: Gross neurological examination did not reveal any focal deficits. SKIN: No rashes. Assessment and plan -Shortness of breath: Secondary to severe bronchospasm from irritable pneumonia or viral lower respiratory illness with lymphadenopathy. Continue with antibiotics, systemic steroids -Possible asthma exacerbation patient was never diagnosed with asthma officially but was told at 1 point she may have asthma -Mnire's disease history of -Hypertension on hydrochlorothiazide lisinopril and continued -GI prophylaxis Protonix DVT prophylaxis: Ambulation Past Medical History Past Medical History: Dialysis Additional Past Medical History / Comment(s): meniere's disease which contributes to vertigo and history of falls. 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 This caused the damage in his heart which lead to a pacemaker in 2001 with device change in 2007 ([facility]). Theorized by doctors HSP brought on by strep throat. Neurocardiac syncope. History of Any Multi-Drug Resistant Organisms: None Reported Past Surgical History: Pacemaker Additional Past Surgical History / Comment(s): pacemaker 2001 with device change in 2007 [facility]. (3 pacemaker surgeries), wisdom teeth extraction Past Anesthesia/Blood Transfusion Reactions: No Reported Reaction Additional Past Anesthesia/Blood Transfusion Reaction / Comment(s): no previous blood transfusions Type of Cardiac Device: Permanent Pacemaker Device Placement Date:: 09/2007 Past Psychological History: No Psychological Hx Reported Smoking Status: Never smoker Past Alcohol Use History: None Reported Past Drug Use History: None Reported - Past Family History Father Family Medical History: Diabetes Mellitus Brother(s) Family Medical History: Diabetes Mellitus Mother Family Medical History: Deep Vein Thrombosis (DVT) Sister(s) Family Medical History: Deep Vein Thrombosis (DVT) Additional Family Medical History / Comment(s): vtach, sister had cardiac ablation, all family snore, dad and whole side of family are diabetic, brother is prediabetic. Medications and Allergies Home Medications Medication Instructions Recorded Confirmed Type Amoxic-Pot Clav 875-125Mg 1 tab PO Q12HR #20 tab 08/03/24 08/10/24 Rx [Augmentin 875-125] Betahistine (Unknown Dose) 1 tab PO TID 08/10/24 08/10/24 History Seasonal Shield 2 cap PO BID 08/10/24 08/10/24 History Triamterene/Hydrochlorothiazid 1 tab PO DAILY 08/10/24 08/10/24 History [Triamterene-Hctz 37.5-25 mg Tb] Vitamin B Complex 1 cap PO DAILY 08/10/24 08/10/24 History predniSONE [Deltasone] 20 mg PO BID 08/10/24 08/10/24 History Allergies Allergy/AdvReac Type Severity Reaction Status Date / Time Penicillins Allergy Mild Rash/Hives Verified 08/10/24 10:06 Physical Exam Vitals: Vital Signs Temp Pulse Pulse Resp BP BP Pulse Ox 08/11/24 08:30 94 16 08/11/24 08:24 93 16 94 L 08/11/24 07:00 98.2 F 77 16 146/79 92 L 08/11/24 01:53 98.4 F 68 18 156/62 91 L 08/10/24 20:21 88 08/10/24 20:12 87 08/10/24 19:05 98.5 F 87 18 151/67 92 L 08/10/24 15:53 88 08/10/24 15:43 86 08/10/24 14:00 17 08/10/24 13:56 98.3 F 83 16 153/70 96 08/10/24 12:16 98.6 F 81 18 136/74 93 L 08/10/24 12:01 84 18 08/10/24 11:53 85 18 Intake and Output 08/10/24 08/11/24 08/11/24 22:59 06:59 14:59 Other: # Voids 1 4 # Bowel Movements 1 Results CBC & Chem 7: 08/10/24 06:30 08/10/24 06:30
[2024-08-11] MEDS: FAMOTIDINE 20 MG TAB PO SCH (10:58)
[2024-08-11] MEDS: ACETAMINOPHEN TAB 325 MG TAB PO PRN (10:59)
[2024-08-11] MEDS: TRIAMTERENE-HCTZ 37.5-25MG 1 EACH CAP PO SCH (11:31)
--- NOTE | 2024-08-11 14:57 | P.PN ---
Subjective Progress Note Date: 08/11/24 This is a 39-year-old male patient, coming in with increased cough congestion a nd worsening shortness of breath over the past 10 days. The patient has received outpatient antibiotics and I believe he was given IM antibiotics and a course of Augmentin on outpatient basis without any significant improvement. Denies having any chronic lung disease. No history of asthma. Notes of COPD. Lifetime non-smoker. No occupational exposures. The patient has no sick contacts. No travel history. The white cell count 11.5, normal coagulation profile, D-dimer is 0.6. The viral screen has been negative. CT of the chest was done and shows no evidence of any pulm embolism. At the same time, the patient has tree-in-bud nodular pulmonary filtrates involving the left upper and left lower lobe along with some additional focal consolidation within the left upper lobe. There is also some reactive mediastinal and left hilar lymphadenopathy with the largest lymph node measuring 1.1 cm in the left hilum and 1.5 cm in the AP window. Based on this, the patient was started on Rocephin and Zithromax. At the time of my evaluation, the patient was actively bronchospastic and wheezy and IV Solu-Medrol was added. Procalcitonin level is to be checked. No recurrent pneumonias. No history of immunosuppression. No connective tissue disease. 08/11/2024, the patient is being seen for a follow-up. Feeling better. Less bronchospastic and wheezy less congested compared to yesterday. Remains on Rocephin and Zithromax. Repeat chest x-ray was done today and the findings are consistent with decreased airspace disease in the left lung. No new complaints otherwise for now. The patient's procalcitonin level is at 0.09. Legionella urine antigen is negative. He is currently on room air oxygen. Remains on bronchodilators. Remains on steroids. Objective - Vital Signs Vital signs: Vital Signs Temp 98.2 F 08/11/24 07:00 Pulse 90 08/11/24 12:01 Resp 16 08/11/24 12:01 BP 146/79 08/11/24 07:00 Pulse Ox 94 L 08/11/24 08:24 FiO2 Intake & Output 08/10/24 08/11/24 08/11/24 18:59 06:59 18:59 Intake Total 118 Balance 118 Weight 121.109 kg Intake: Oral 118 Other: Voiding Method Toilet # Voids 5 4 # Bowel Movements 1 - Exam The patient appeared well nourished and normally developed. Vital signs as documented. Patient is currently on room air oxygen. Head exam is unremarkable. No scleral icterus or corneal arcus noted. Neck is without jugular venous distension, thyromegaly, or carotid bruits. Carotid upstrokes are brisk bilaterally. Lungs diminished breath sounds along with diffuse expiratory wheezes throughout the lung charlton bilaterally. Cardiac exam reveals the PMI to be normally sized and situated. Rhythm is regular. First and second heart sounds normal. No murmurs, rubs or gallops. Abdominal exam reveals normal bowel sounds, no masses, no organomegaly and no aortic enlargement. Extremities are nonedematous and both femoral and pedal pulses are normal. Examination of the skin revealed no evidence of significant rashes, suspicious appearing nevi or other concerning lesions. Neurologically, the patient is awake and alert and the patient does not have any focal neurological deficit. Cranial nerves are essentially intact. - Labs CBC & Chem 7: 08/10/24 06:30 08/10/24 06:30 Assessment and Plan Plan: Acute left lung pneumonia with tree-in-bud nodular pulmonary infiltrates involving the left upper and left lower lobe and some reactive left AP window and hilar lymphadenopathy, nonspecific finding. Consider infectious pneumonia, likely bacterial. Failed outpatient antibiotics with Augmentin. Acute shortness of breath secondary to above. The patient is also actively bronchospastic and wheezy. 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 Will follow.
[2024-08-12 07:29] LABS: HCT 45.2 % (39.0-53.0); HGB 15.3 gm/dL (13.0-17.5); MCHC 33.9 g/dL (31.0-37.0); MCV 88.4 fL (80.0-100.0); Mean Platelet Volume 7.1; Platelet Count 291 k/uL (150-450); RBC 5.11 m/uL (4.30-5.90); RDW 13.6 % (11.5-15.5); WBC 19.4 k/uL (3.8-10.6)
[2024-08-12 07:52] LABS: African American GFR (CKD) >90 (>60 ml/min/1.73 sqM); Anion Gap 12 mmol/L; Blood Urea Nitrogen 17 mg/dL (9-20); Calcium 9.7 mg/dL (8.4-10.2); Carbon Dioxide 26 mmol/L (22-30); Chloride 97 mmol/L (98-107); Glucose 168 mg/dL (74-99); Non-African American GFR(CKD) >90 (>60 ml/min/1.73 sqM); Potassium 4.9 mmol/L (3.5-5.1); Sodium 135 mmol/L (137-145)
--- NOTE | 2024-08-12 11:30 | P.PN ---
Subjective Progress Note Date: 08/12/24 39-year-old pleasant female complains of cough congestion worsening shortness of breath has been going on for about 5 days patient is a little bronchospastic and wheezing on exam patient is a CT of the chest which did not show any clear pneumonic infiltrate but there is some nonspecific infiltrate with lymphadenopathy. Pulmonology evaluated patient agree patient has pneumonia and also bronchospasm patient started on Rocephin and azithromycin. Patient was started on Solu-Medrol by pulmonary because of severe wheezing and bronchospasm. Patient D-dimer was 0.[address] angio of the chest did not show any pulm embolism. 08/12/2024 Patient is seen and evaluated in follow-up with pulmonary following continues to be extremely bronchospastic with significant expiratory wheezing noted on exam. Patient is continued on IV steroids along with breathing treatments maintained on Zithromax and ceftriaxone. Patient reports he has significant ear pain more so on the right and on exam patient does have evidence of otitis media with some inner ear congestion noted. Will continue Zithromax and ceftriaxone. Encouraged increase activity as tolerated will also add Claritin. Review of systems: Constitutional: No reports of fatigue, fever, or chills Cardiovascular: No reports of chest pain or palpitations Respiratory: reports of shortness of breath with frequent cough and coughing fits, reports significant ear pain more so on the right GI: No reports of nausea, vomiting, or diarrhea : No reports of dysuria or retention Neurovascular: No reports of weakness or numbness All other systems are negative except those mentioned in the HPI PHYSICAL EXAMINATION: GENERAL: The patient is alert and oriented x3, not in any acute distress. Well developed, well nourished. Obese HEENT: Pupils are round and equally reacting to light. EOMI. No scleral icterus. No conjunctival pallor. Normocephalic, atraumatic. No pharyngeal erythema. No thyromegaly. Bilateral ear pain with right otitis media noted on exam obese, CARDIOVASCULAR: S1 and S2 present. No murmurs, rubs, or gallops. PULMONARY significantly decreased air entry with expiratory wheezing on exam, extremely bronchospastic on conversation ABDOMEN: Soft, nontender, nondistended, normoactive bowel sounds. No palpable organomegaly. MUSCULOSKELETAL: No joint swelling or deformity. EXTREMITIES: No cyanosis, clubbing, or pedal edema. NEUROLOGICAL: Gross neurological examination did not reveal any focal deficits. SKIN: No rashes. Assessment: -Shortness of breath: Secondary to severe bronchospasm from irritable pneumonia or viral lower respiratory illness with lymphadenopathy. Continue with antibiotics, systemic steroids -Possible asthma exacerbation patient was never diagnosed with asthma officially but was told at 1 point he may have asthma -History of Mnire's disease -Right otitis media -Hypertension on hydrochlorothiazide lisinopril and continued -GI prophylaxis Protonix -DVT prophylaxis: Ambulation -Obesity with a BMI of 39.4 -Full code Plan: Patient is continued on IV steroids along with breathing treatments with pulmonary following continues to be bronchospastic and wheezing significantly on expiration Patient is reporting significant cough head having ear pain with history of Mnire's disease, patient reports was on antibiotics outpatient most recently and the pain is becoming more intense. Will continue Zithromax as patient has allergies to penicillin and also ceftriaxone. Add Claritin and recommend to continue with supportive care of cough suppression Encourage increase activity as tolerated The impression and plan of care has been dictated by Lillian Lopez, Nurse Practitioner as directed. Dr. Franky MD I have performed a history and examination and MDM of this patient, discussed the same with the dictator, and agree with the dictator's assessment and plan as written ,documented as a scribe. Based on total visit time, I have performed more than 50% of the visit. Objective - Vital Signs Vital signs: Vital Signs Temp 98.3 F 08/12/24 07:00 Pulse 88 08/12/24 08:40 Resp 15 08/12/24 08:43 BP 134/76 08/12/24 07:00 Pulse Ox 92 L 08/12/24 07:00 FiO2 Intake & Output 08/11/24 08/12/24 08/12/24 18:59 06:59 18:59 Intake Total 893 883 8002 Balance 831 418 5582 Intake: Oral 259 522 2522 Other: Voiding Method Toilet Toilet # Voids 4 - Labs CBC & Chem 7: 08/12/24 07:08 08/12/24 07:08 Labs: Abnormal Lab Results - Last 24 Hours (Table) 08/12/24 08/12/24 Range/Units 07:08 07:08 WBC 19.4 H (3.8-10.6) k/uL Sodium 135 L (137-145) mmol/L Chloride 97 L (98-107) mmol/L Glucose 168 H (74-99) mg/dL Microbiology - Last 24 Hours (Table) 08/10/24 12:01 Gram Stain - Final Sputum Sputum Culture - Final 08/10/24 10:00 Blood Culture - Preliminary Blood
[2024-08-12] MEDS: LORATADINE 10 MG TAB PO SCH (12:13)
[2024-08-12] MEDS: BETAHISTINE PO SCH (12:20)
[2024-08-12] MEDS: [UNRECOGNIZED DRUG - OTHER] PO SCH (12:20)
--- NOTE | 2024-08-12 14:45 | P.PN ---
Subjective Progress Note Date: 08/12/24 This is a 39-year-old male patient, coming in with increased cough congestion a nd worsening shortness of breath over the past 10 days. The patient has received outpatient antibiotics and I believe he was given IM antibiotics and a course of Augmentin on outpatient basis without any significant improvement. Denies having any chronic lung disease. No history of asthma. Notes of COPD. Lifetime non-smoker. No occupational exposures. The patient has no sick contacts. No travel history. The white cell count 11.5, normal coagulation profile, D-dimer is 0.6. The viral screen has been negative. CT of the chest was done and shows no evidence of any pulm embolism. At the same time, the patient has tree-in-bud nodular pulmonary filtrates involving the left upper and left lower lobe along with some additional focal consolidation within the left upper lobe. There is also some reactive mediastinal and left hilar lymphadenopathy with the largest lymph node measuring 1.1 cm in the left hilum and 1.5 cm in the AP window. Based on this, the patient was started on Rocephin and Zithromax. At the time of my evaluation, the patient was actively bronchospastic and wheezy and IV Solu-Medrol was added. Procalcitonin level is to be checked. No recurrent pneumonias. No history of immunosuppression. No connective tissue disease. 08/11/2024, the patient is being seen for a follow-up. Feeling better. Less bronchospastic and wheezy less congested compared to yesterday. Remains on Rocephin and Zithromax. Repeat chest x-ray was done today and the findings are consistent with decreased airspace disease in the left lung. No new complaints otherwise for now. The patient's procalcitonin level is at 0.09. Legionella urine antigen is negative. He is currently on room air oxygen. Remains on bronchodilators. Remains on steroids. 08/12/2024, the patient continues to be congested bronchospastic and wheezy. He is also having some diminished hearing and pressure in his right ear. The white cell 13.4 Hemoglobin 15.3 and Platelet Count of 291. Electrolytes Are within Normal Limits. Legionella Urine Antigen Was Negative. Procalcitonin Level Is at 0.09. Remains on Rocephin and Zithromax. Chest x-ray showed improvement in the left lung pulmonary infiltration. Nevertheless, continues to be bronchospastic and wheezy. Remains on DuoNeb updrafts. Remains on IV Solu- Medrol. Objective - Vital Signs Vital signs: Vital Signs Temp 98.3 F 08/12/24 07:00 Pulse 84 08/12/24 11:50 Resp 15 08/12/24 08:43 BP 134/76 08/12/24 07:00 Pulse Ox 92 L 08/12/24 07:00 FiO2 Intake & Output 08/11/24 08/12/24 08/12/24 18:59 06:59 18:59 Intake Total 664 267 3876 Balance 226 225 0207 Intake: Oral 503 407 1008 Other: Voiding Method Toilet Toilet # Voids 4 - Exam The patient appeared well nourished and normally developed. Vital signs as documented. Patient is currently on room air oxygen. Head exam is unremarkable. No scleral icterus or corneal arcus noted. Neck is without jugular venous distension, thyromegaly, or carotid bruits. Carotid upstrokes are brisk bilaterally. Lungs diminished breath sounds along with diffuse expiratory wheezes throughout the lung [place] bilaterally. Cardiac exam reveals the PMI to be normally sized and situated. Rhythm is regular. First and second heart sounds normal. No murmurs, rubs or gallops. Abdominal exam reveals normal bowel sounds, no masses, no organomegaly and no aortic enlargement. Extremities are nonedematous and both femoral and pedal pulses are normal. Examination of the skin revealed no evidence of significant rashes, suspicious appearing nevi or other concerning lesions. Neurologically, the patient is awake and alert and the patient does not have any focal neurological deficit. Cranial nerves are essentially intact. - Labs CBC & Chem 7: 08/12/24 07:08 08/12/24 07:08 Labs: Abnormal Lab Results - Last 24 Hours (Table) 08/12/24 08/12/24 Range/Units 07:08 07:08 WBC 19.4 H (3.8-10.6) k/uL Sodium 135 L (137-145) mmol/L Chloride 97 L (98-107) mmol/L Glucose 168 H (74-99) mg/dL Microbiology - Last 24 Hours (Table) 08/10/24 12:01 Gram Stain - Final Sputum Sputum Culture - Final 08/10/24 10:00 Blood Culture - Preliminary Blood Assessment and Plan Plan: Acute left lung pneumonia with tree-in-bud nodular pulmonary infiltrates involving the left upper and left lower lobe and some reactive left AP window and hilar lymphadenopathy, nonspecific finding. Consider infectious pneumonia, likely bacterial. Failed outpatient antibiotics with Augmentin. Acute shortness of breath secondary to above. The patient is also actively bronchospastic and wheezy. 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 He did encounter some initial improvement yet over the past 24 hours, no major change the patient remains bronchospastic and wheezy. Based on that, going to add a combination performance of Pulmicort nebulized treatments twice a day. Continue DuoNeb updrafts. Chest x-ray improving and shows improvement in left lung infiltrates Continue Rocephin and Zithromax Sputum Gram stain and culture IV Solu-Medrol 60 mg every 6 hours Check procalcitonin level is not elevated Monitor the white cell count IV fluids DuoNeb updrafts Will continue to follow
[2024-08-12] MEDS: BENZONATATE 100 MG CAP PO PRN (15:32)
[2024-08-12] MEDS: BUDESONIDE 0.5 MG/2 ML NEBU INHALATION SCH (20:22)
[2024-08-12] MEDS: FORMOTEROL FUMARATE 20 MCG/2 ML NEBU INHALATION SCH (20:22)
--- NOTE | 2024-08-13 06:58 | P.CONS ---
History of Present Illness - Reason for Consult Consult date: 08/12/24 Right otitis media Requesting physician: Lillian Lopez - Chief Complaint Pain to the right ear x 2 days - History of Present Illness Patient is a 39-year-old male with a past medical history significant for Mnire's disease recurrent syncopal episode presenting to the hospital for evaluation of increasing shortness of breath and cough symptom has been going on for about a week patient also have a cough moderate intensity and is bringing up some sputum he was recently diagnosed with pneumonia and has been treated with a course of Augmentin and Zithromax did not have significant improvement for the patient was sent to the hospital on arrival to the ER patient did have a low- grade fever of 99.9 F patient was not tachycardic or hypotensive mildly hypoxic but no need for supplemental oxygen patient did have a white count of 11.5 which is up to 19.4 creatinine 0.88 procalcitonin 0.09 influenza RSV COVID testing was negative urine for Legionella antigen was negative blood and sputum culture have been negative he did have a chest x-ray stable left midlung patchy opacity concerning for pneumonia also have a CT angiogram of the chest nondiagnostic alpa luation for PE tree-in-bud nodular opacity throughout left lung with additional focal consolidation within the left upper lobe concerning for infectious process patient has been treated with azithromycin and ceftriaxone infectious disease was consulted today as the patient has been complaining of pain to the right ear describing it to be throbbing moderate intensity over the last day or 2 patient denies having any drainage from the right ear he was examined by the [employer] noticed to have a bulging tympanic membrane concerning for otitis media prompting this consultation Review of Systems Positive point and negatives has been mentioned in the HPI, complete review of systems was performed and all other systems are negative Past Medical History Past Medical History: Dialysis Additional Past Medical History / Comment(s): meniere's disease which contributes to vertigo and history of falls. 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 This caused the damage in his heart which lead to a pacemaker in 2001 with device change in 2007 ([facility]). Theorized by doctors HSP brought on by strep throat. Neurocardiac syncope. History of Any Multi-Drug Resistant Organisms: None Reported Past Surgical History: Pacemaker Additional Past Surgical History / Comment(s): pacemaker 2002 with device change in 2007 [facility] [facility]. (3 pacemaker surgeries), wisdom teeth extraction Past Anesthesia/Blood Transfusion Reactions: No Reported Reaction Additional Past Anesthesia/Blood Transfusion Reaction / Comm: no previous blood transfusions Type of Cardiac Device: Permanent Pacemaker Device Placement Date:: 09/2007 Past Psychological History: No Psychological Hx Reported Smoking Status: Never smoker Past Alcohol Use History: None Reported Past Drug Use History: None Reported - Past Family History Father Family Medical History: Diabetes Mellitus Brother(s) Family Medical History: Diabetes Mellitus Mother Family Medical History: Deep Vein Thrombosis (DVT) Sister(s) Family Medical History: Deep Vein Thrombosis (DVT) Additional Family Medical History / Comment(s): vtach, sister had cardiac ablation, all family snore, dad and whole side of family are diabetic, brother is prediabetic. Medications and Allergies Home Medications Medication Instructions Recorded Confirmed Type Amoxic-Pot Clav 875-125Mg 1 tab PO Q12HR #20 tab 08/03/24 08/10/24 Rx [Augmentin 875-125] Betahistine (Unknown Dose) 1 tab PO TID 08/10/24 08/10/24 History Seasonal Shield 2 cap PO BID 08/10/24 08/10/24 History Triamterene/Hydrochlorothiazid 1 tab PO DAILY 08/10/24 08/10/24 History [Triamterene-Hctz 37.5-25 mg Tb] Vitamin B Complex 1 cap PO DAILY 08/10/24 08/10/24 History predniSONE [Deltasone] 20 mg PO BID 08/10/24 08/10/24 History Allergies Allergy/AdvReac Type Severity Reaction Status Date / Time Penicillins Allergy Mild Rash/Hives Verified 08/10/24 10:06 Physical Exam Vitals: Vital Signs Temp Pulse Pulse Resp BP Pulse Ox 08/12/24 11:50 84 08/12/24 11:40 83 08/12/24 08:43 15 08/12/24 08:40 88 08/12/24 08:31 86 08/12/24 07:00 98.3 F 71 15 134/76 92 L 08/12/24 06:05 98.0 F 95 08/12/24 01:45 97.4 F L 68 20 161/64 93 L 08/11/24 20:42 86 16 08/11/24 20:36 84 16 08/11/24 18:48 98.3 F 88 20 150/82 92 L 08/11/24 15:58 82 16 08/11/24 15:51 80 16 08/11/24 15:00 98.0 F 82 17 146/70 93 L 08/11/24 14:00 20 Intake and Output 08/11/24 08/12/24 08/12/24 22:59 06:59 14:59 Intake Total 118 1180 Balance 118 1180 Intake: Oral 118 1180 Other: Voiding Method Toilet # Voids 2 4 GENERAL DESCRIPTION: Middle-aged male lying in bed, no distress. No tachypnea or accessory muscle of respiration use. HEENT: Shows Pallor , no scleral icterus. Oral mucous membrane is dry. No pharyngeal erythema or thrush NECK: Trachea central, no thyromegaly. LUNGS: Unlabored breathing. Coarse breath sounds bilaterally HEART: S1, S2, regular rate and rhythm. No loud murmur ABDOMEN: Soft, no tenderness , EXTREMITIES: No edema of feet. SKIN: No rash, no masses palpable. NEUROLOGICAL: The patient is awake, alert, oriented x3, mood and affect normal. Results CBC & Chem 7: 08/12/24 07:08 08/12/24 07:08 Labs: Abnormal Lab Results - Last 24 Hours (Table) 08/12/24 08/12/24 Range/Units 07:08 07:08 WBC 19.4 H (3.8-10.6) k/uL Sodium 135 L (137-145) mmol/L Chloride 97 L (98-107) mmol/L Glucose 168 H (74-99) mg/dL Microbiology - Last 24 Hours (Table) 08/10/24 12:01 Gram Stain - Final Sputum Sputum Culture - Final 08/10/24 10:00 Blood Culture - Preliminary Blood Assessment and Plan (1) Penicillin allergy Current Visit: Yes Status: Acute Code(s): Z88.0 - ALLERGY STATUS TO PENICILLIN SNOMED Code(s): 35142570 (2) Otitis media Current Visit: Yes Status: Acute Code(s): H66.90 - OTITIS MEDIA, UNSPECIFIED, UNSPECIFIED EAR SNOMED Code(s): 19372949 (3) Failure of outpatient treatment Current Visit: Yes Status: Acute Code(s): Z78.9 - OTHER SPECIFIED HEALTH STATUS SNOMED Code(s): 390777530 (4) Pneumonia Current Visit: Yes Status: Acute Code(s): J18.9 - PNEUMONIA, UNSPECIFIED ORGANISM SNOMED Code(s): 338584234 Plan: 1patient with painful right ear with a bulging tympanic membrane on the right side did not have any perforation concerning for otitis media which is usually related to the respiratory pathogen 2-patient is covered with the Rocephin to remain to continue if he has any drainage from the right ear he should be culture that will guide further antibiotic therapy Question concern answered We will follow on clinical condition and cultures to further adjust medication if needed Thank you for this consultation we will follow the patient along with you Dictation was produced using [employer] dictation software. please excuse any grammatical, word or spelling errors. Time with Patient: Greater than 30
[2024-08-13] MEDS: AZITHROMYCIN 500 MG TAB PO SCH (08:33)
--- NOTE | 2024-08-13 12:09 | P.DS ---
Providers Date of admission: 08/10/24 10:38 Expected date of discharge: 08/13/24 Attending physician: Jose Farooq Consults: 08/10/24 10:31 Consult Physician Routine Consulting Provider: Chandu Tobar Consult Reason/Comments: pneumonia Do you want consulting provider notified?: Yes 08/12/24 12:01 Consult Physician Urgent Consulting Provider: Teo Andrade Consult Reason/Comments: right otitis media, hx of menieres Do you want consulting provider notified?: Yes Primary care physician: Jose Farooq [facility] Course: Final Diagnosis: -Acute left lung pneumonia with hilar lymphadenopathy. Procalcitonin normal. -History of Mnire's disease -Right otitis media -Hypertension -Morbid obesity, BMI 39 Evaluated by pulmonary and infectious disease. Maintained on antibiotics and steroids. Significant clinical improvement. Denies chest pain, palpitations or shortness of breath. Occasional cough, minimal expiratory wheezing. Maintaining O2 sats in the high 90s on room air. Eager for discharge. Patient will be discharged home today in a stable condition with guarded prognosis pending final DC recommendations/antibiotics and clearance per both ID and pu lmonary. The impression and plan of care has been dictated as directed. : I performed a history and examination of this patient, discussed the same with the dictator. I agree with the dictator's note ,documented as a scribe. Any additional findings or plans will be noted. Patient Condition at Discharge: Stable Plan - Discharge Summary Discharge Rx Participant: No New Discharge Prescriptions: New Loratadine [Claritin] 10 mg PO DAILY tab Famotidine [Pepcid] 20 mg PO BID tab Continue Triamterene/Hydrochlorothiazid [Triamterene-Hctz 37.5-25 mg Tb] 1 tab PO DAILY Betahistine (Unknown Dose) 1 tab PO TID predniSONE [Deltasone] 20 mg PO BID Vitamin B Complex 1 cap PO DAILY Seasonal Shield 2 cap PO BID No Action Amoxic-Pot Clav 875-125Mg [Augmentin 875-125] 1 tab PO Q12HR #20 tab Discharge Medication List Amoxic-Pot Clav 875-125Mg [Augmentin 875-125] 1 tab PO Q12HR #20 tab 08/03/24 [Rx] Betahistine (Unknown Dose) 1 tab PO TID 08/10/24 [History] Seasonal Shield 2 cap PO BID 08/10/24 [History] Triamterene/Hydrochlorothiazid [Triamterene-Hctz 37.5-25 mg Tb] 1 tab PO DAILY 08/10/24 [History] Vitamin B Complex 1 cap PO DAILY 08/10/24 [History] predniSONE [Deltasone] 20 mg PO BID 08/10/24 [History] Famotidine [Pepcid] 20 mg PO BID tab 08/13/24 [Rx] Loratadine [Claritin] 10 mg PO DAILY tab 08/13/24 [Rx] Follow up Appointment(s)/Referral(s): Jose Farooq DO [Primary Care Provider] - 1 Week
--- NOTE | 2024-08-13 12:44 | P.PN ---
Subjective Progress Note Date: 08/13/24 Principal diagnosis: Reason for follow-up is pneumonia, middle ear infection right side Patient is a 39-year-old male with a past medical history significant for Mnire's disease recurrent syncopal episode presenting to the hospital for evaluation of increasing shortness of breath and cough has been diagnosed with pneumonia also developing pain to the right ear with concern for right middle ear infection of probably this consultation. On today's evaluation that is 08/13/2024, patient has been afebrile, patient is breathing comfortably and is currently on room air, patient denies having any chest pain cough decreased intensity, patient right ear pinna pressure slightly decreased, no drainage denies nausea vomiting or diarrhea and no abdominal pain. No new lab has been repeated today blood and sputum culture have been negative so far Objective - Vital Signs Vital signs: Vital Signs Temp 97.8 F 08/13/24 07:33 Pulse 80 08/13/24 08:13 Resp 16 08/13/24 07:33 BP 125/74 08/13/24 07:33 Pulse Ox 95 08/13/24 10:00 FiO2 Intake & Output 08/12/24 08/13/24 08/13/24 18:59 06:59 18:59 Intake Total 2780 591 118 Balance 2780 591 118 Intake: Oral 2780 591 118 Other: Voiding Method Toilet Toilet Toilet # Voids 4 - Exam GENERAL DESCRIPTION: An elderly male lying in bed in no distress HEENT: Right eardrum is inflamed with bulging no drainage RESPIRATORY SYSTEM: Unlabored breathing , decreased breath sounds at bases HEART: S1 S2 regular rate and rhythm , ABDOMEN: Soft , no tenderness EXTREMITIES: No edema feet - Labs CBC & Chem 7: 08/12/24 07:08 08/12/24 07:08 Labs: Microbiology - Last 24 Hours (Table) 08/10/24 10:00 Blood Culture - Preliminary Blood 08/10/24 12:01 Gram Stain - Final Sputum Sputum Culture - Final Assessment and Plan (1) Penicillin allergy Current Visit: Yes Status: Acute Code(s): Z88.0 - ALLERGY STATUS TO PENICILLIN SNOMED Code(s): 95510698 (2) Otitis media Current Visit: Yes Status: Acute Code(s): H66.90 - OTITIS MEDIA, UNSPECIFIED, UNSPECIFIED EAR SNOMED Code(s): 02938246 (3) Failure of outpatient treatment Current Visit: Yes Status: Acute Code(s): Z78.9 - OTHER SPECIFIED HEALTH STATUS SNOMED Code(s): 587513103 (4) Pneumonia Current Visit: Yes Status: Acute Code(s): J18.9 - PNEUMONIA, UNSPECIFIED ORGANISM SNOMED Code(s): 300700094 Plan: 1patient with painful right ear with a bulging tympanic membrane on the right side did not have any perforation concerning for otitis media which is usually related to the respiratory pathogen 2-patient mentions some improvement continue with Rocephin we will add Sudafed for decongestion short course and recommending at least a week course of oral Ceftin on discharge for right middle ear infection Dictation was produced using [employer] dictation software. please excuse any grammatical, word or spelling errors. Time with Patient: Less than 30
[2024-08-13] MEDS: PSEUDOEPHEDRINE 12HR 120 MG TABLET.ER PO SCH (13:17)
--- NOTE | 2024-08-13 13:40 | P.PN ---
Subjective Progress Note Date: 08/13/24 This is a 39-year-old male patient, coming in with increased cough congestion and worsening shortness of breath over the past 10 days. The patient has received outpatient antibiotics and I believe he was given IM antibiotics and a course of Augmentin on outpatient basis without any significant improvement. Denies having any chronic lung disease. No history of asthma. Notes of COPD. Lifetime non-smoker. No occupational exposures. The patient has no sick contacts. No travel history. The white cell count 11.5, normal coagulation profile, D-dimer is 0.6. The viral screen has been negative. CT of the chest was done and shows no evidence of any pulm embolism. At the same time, the patient has tree-in-bud nodular pulmonary filtrates involving the left upper and left lower lobe along with some additional focal consolidation within the left upper lobe. There is also some reactive mediastinal and left hilar lymphadenopathy with the largest lymph node measuring 1.1 cm in the left hilum and 1.5 cm in the AP window. Based on this, the patient was started on Rocephin and Zithromax. At the time of my evaluation, the patient was actively bronchospastic and wheezy and IV Solu-Medrol was added. Procalcitonin level is to be checked. No recurrent pneumonias. No history of immunosuppression. No connective tissue disease. 08/11/2024, the patient is being seen for a follow-up. Feeling better. Less bronchospastic and wheezy less congested compared to yesterday. Remains on Rocephin and Zithromax. Repeat chest x-ray was done today and the findings are consistent with decreased airspace disease in the left lung. No new complaints otherwise for now. The patient's procalcitonin level is at 0.09. Legionella urine antigen is negative. He is currently on room air oxygen. Remains on bronchodilators. Remains on steroids. 08/12/2024, the patient continues to be congested bronchospastic and wheezy. He is also having some diminished hearing and pressure in his right ear. The white cell 13.4 Hemoglobin 15.3 and Platelet Count of 291. Electrolytes Are within Normal Limits. Legionella Urine Antigen Was Negative. Procalcitonin Level Is at 0.09. Remains on Rocephin and Zithromax. Chest x-ray showed improvement in the left lung pulmonary infiltration. Nevertheless, continues to be bronchospastic and wheezy. Remains on DuoNeb updrafts. Remains on IV Solu- Medrol. The patient is seen today August 13, 2024 in follow-up on the regular medical floor. He is currently sitting up in a chair at the bedside. Awake and alert in no acute distress. Breathing easier today compared to yesterday. He is maintaining good O2 saturations in the high 90s on room air. He has been afebrile. Hemodynamically stable. Sputum culture revealed no growth. Blood culture revealed no growth. He is continued on DuoNeb inhalations, Pulmicort and performance inhalations, IV Solu-Medrol. Remains on antibiotics in the form of ceftriaxone and azithromycin. Infectious disease is following. Objective - Vital Signs Vital signs: Vital Signs Temp 97.8 F 08/13/24 07:33 Pulse 80 08/13/24 08:13 Resp 16 08/13/24 07:33 BP 125/74 08/13/24 07:33 Pulse Ox 95 08/13/24 10:00 FiO2 Intake & Output 08/12/24 08/13/24 08/13/24 18:59 06:59 18:59 Intake Total 2780 591 118 Balance 2780 591 118 Intake: Oral 2780 591 118 Other: Voiding Method Toilet Toilet Toilet # Voids 4 - Exam GENERAL EXAM: Alert, pleasant 39-year-old male, on room air, fairly comfortable in no apparent distress. HEAD: Normocephalic. EYES: Normal reaction of pupils, equal size. NOSE: Clear with pink turbinates. THROAT: No erythema or exudates. NECK: No masses, no JVD. CHEST: No chest wall deformity. LUNGS: Equal air entry with end expiratory wheeze, few scattered rhonchi. CVS: S1 and S2 normal with no audible murmur, regular rhythm. ABDOMEN: No hepatosplenomegaly, normal bowel sounds, no guarding or rigidity. SPINE: No scoliosis or deformity SKIN: No rashes CENTRAL NERVOUS SYSTEM: No focal deficits, tone is normal in all 4 extremities. EXTREMITIES: There is no peripheral edema. No clubbing, no cyanosis. Peripheral pulses are intact. - Labs CBC & Chem 7: 08/12/24 07:08 08/12/24 07:08 Labs: Microbiology - Last 24 Hours (Table) 08/10/24 10:00 Blood Culture - Preliminary Blood 08/10/24 12:01 Gram Stain - Final Sputum Sputum Culture - Final Assessment and Plan Assessment: Acute left lung pneumonia with tree-in-bud nodular pulmonary infiltrates involving the left upper and left lower lobe and some reactive left AP window and hilar lymphadenopathy, nonspecific finding. Consider infectious pneumonia, likely bacterial. Failed outpatient antibiotics with Augmentin Acute shortness of breath secondary to above. The patient is also actively bronchospastic and wheezy. 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 I have personally seen and examined the patient, performed the documentation and the assessment and plan as written. Number of minutes spent on the visit: 10 Dictation was produced using [employer] dictation software. Please excuse any grammatical, word or spelling errors.
[2024-08-13] MEDS: IBUPROFEN 200 MG TAB PO PRN (15:58)
[2024-08-14 08:25] VITALS: BP 127/82; RESP 16; TEMP 98
[2024-08-14] MEDS: predniSONE 20 MG TAB PO SCH (08:32)
[2024-08-14 09:35] VITALS: PULSE 84
--- NOTE | 2024-08-14 12:09 | P.PN ---
Subjective Progress Note Date: 08/14/24 This is a 39-year-old male patient, coming in with increased cough congestion and worsening shortness of breath over the past 10 days. The patient has received outpatient antibiotics and I believe he was given IM antibiotics and a course of Augmentin on outpatient basis without any significant improvement. Denies having any chronic lung disease. No history of asthma. Notes of COPD. Lifetime non-smoker. No occupational exposures. The patient has no sick contacts. No travel history. The white cell count 11.5, normal coagulation profile, D-dimer is 0.6. The viral screen has been negative. CT of the chest was done and shows no evidence of any pulm embolism. At the same time, the patient has tree-in-bud nodular pulmonary filtrates involving the left upper and left lower lobe along with some additional focal consolidation within the left upper lobe. There is also some reactive mediastinal and left hilar lymphadenopathy with the largest lymph node measuring 1.1 cm in the left hilum and 1.5 cm in the AP window. Based on this, the patient was started on Rocephin and Zithromax. At the time of my evaluation, the patient was actively bronchospastic and wheezy and IV Solu-Medrol was added. Procalcitonin level is to be checked. No recurrent pneumonias. No history of immunosuppression. No connective tissue disease. 08/11/2024, the patient is being seen for a follow-up. Feeling better. Less bronchospastic and wheezy less congested compared to yesterday. Remains on Rocephin and Zithromax. Repeat chest x-ray was done today and the findings are consistent with decreased airspace disease in the left lung. No new complaints otherwise for now. The patient's procalcitonin level is at 0.09. Legionella urine antigen is negative. He is currently on room air oxygen. Remains on bronchodilators. Remains on steroids. 08/12/2024, the patient continues to be congested bronchospastic and wheezy. He is also having some diminished hearing and pressure in his right ear. The white cell 13.4 Hemoglobin 15.3 and Platelet Count of 291. Electrolytes Are within Normal Limits. Legionella Urine Antigen Was Negative. Procalcitonin Level Is at 0.09. Remains on Rocephin and Zithromax. Chest x-ray showed improvement in the left lung pulmonary infiltration. Nevertheless, continues to be bronchospastic and wheezy. Remains on DuoNeb updrafts. Remains on IV Solu- Medrol. The patient is seen today August 13, 2024 in follow-up on the regular medical floor. He is currently sitting up in a chair at the bedside. Awake and alert in no acute distress. Breathing easier today compared to yesterday. He is maintaining good O2 saturations in the high 90s on room air. He has been afebrile. Hemodynamically stable. Sputum culture revealed no growth. Blood culture revealed no growth. He is continued on DuoNeb inhalations, Pulmicort and performance inhalations, IV Solu-Medrol. Remains on antibiotics in the form of ceftriaxone and azithromycin. Infectious disease is following. The patient is seen today August 14, 2024 in follow-up on the regular medical floor. He is awake and alert in no acute distress. Maintaining good O2 saturations in the 90s on room air. Currently sitting up in a chair at the bedside having breakfast. He is feeling quite a bit better. Nearly back to his baseline. No worsening shortness of breath, cough or congestion. He remains afebrile. Hemodynamically stable. He remains on IV Solu-Medrol. Continued on DuoNeb inhalations, Pulmicort and Perforomist inhalations. Antibiotics in the form of ceftriaxone and azithromycin. Blood and sputum cultures revealed no growth. Objective - Vital Signs Vital signs: Vital Signs Temp 98.0 F 08/14/24 07:05 Pulse 84 08/14/24 09:44 Resp 16 08/14/24 07:05 BP 127/82 08/14/24 07:05 Pulse Ox 94 L 08/14/24 10:00 FiO2 Intake & Output 08/13/24 08/14/24 08/14/24 18:59 06:59 18:59 Intake Total 236 Balance 236 Intake: Oral 236 Other: Voiding Method Toilet Toilet Toilet # Voids 4 2 - Exam GENERAL EXAM: Alert, pleasant 39-year-old male, up in a chair, having breakfast, on room air, comfortable in no apparent distress. HEAD: Normocephalic. EYES: Normal reaction of pupils, equal size. NOSE: Clear with pink turbinates. THROAT: No erythema or exudates. NECK: No masses, no JVD. CHEST: No chest wall deformity. LUNGS: Equal air entry with few scattered rhonchi. CVS: S1 and S2 normal with no audible murmur, regular rhythm. ABDOMEN: No hepatosplenomegaly, normal bowel sounds, no guarding or rigidity. SPINE: No scoliosis or deformity SKIN: No rashes CENTRAL NERVOUS SYSTEM: No focal deficits, tone is normal in all 4 extremities. EXTREMITIES: There is no peripheral edema. No clubbing, no cyanosis. Peripheral pulses are intact. - Labs CBC & Chem 7: 08/12/24 07:08 08/12/24 07:08 Labs: Microbiology - Last 24 Hours (Table) 08/10/24 10:00 Blood Culture - Preliminary Blood 08/10/24 12:01 Legionella Culture - Preliminary Sputum Assessment and Plan Assessment: Acute left lung pneumonia with tree-in-bud nodular pulmonary infiltrates involving the left upper and left lower lobe and some reactive left AP window and hilar lymphadenopathy, nonspecific finding. Consider infectious pneumonia, likely bacterial. Failed outpatient antibiotics with Augmentin Acute shortness of breath secondary to above. The patient is also actively bronchospastic and wheezy. 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 Number of minutes spent on the visit: 10 Dictation was produced using [employer] dictation software. Please excuse any grammatical, word or spelling errors.
== END 2024-08-14 11:00 | disposition home or self-care (01) | DRG 194 ==
LOC: EC 06:09 → 6NMEDSUR 10:38
PROVIDERS: ADMIT Family Medicine; ATTEND Family Medicine
DX: J18.9 Pneumonia, unspecified organism (principal); J44.0 Chronic obstructive pulmonary disease with (acute) lower respiratory infection; E66.01 Morbid (severe) obesity due to excess calories; I10 Essential (primary) hypertension; H81.09 Meniere's disease, unspecified ear; H66.91 Otitis media, unspecified, right ear; J98.01 Acute bronchospasm; Z68.39 Body mass index [BMI] 39.0-39.9, adult; Z20.822 Contact with and (suspected) exposure to COVID-19; R59.0 Localized enlarged lymph nodes; Z79.899 Other long term (current) drug therapy; Z88.0 Allergy status to penicillin; Z91.81 History of falling; Z95.0 Presence of cardiac pacemaker; Z28.311 Partially vaccinated for COVID-19; Z28.21 Immunization not carried out because of patient refusal; Z87.19 Personal history of other diseases of the digestive system
CPT/HCPCS: 36415; 71046; 71275; 80048; 80053; 83605; 84145; 85025; 85027; 85379; 85610; 85730; 87040; 87070; 87205; 87449; 87636; 93005; 94640; 94760; 96365; 96366; 96367; 96375; 99285

== ENCOUNTER 2024-11-25 19:36 | Emergency (ER) | payer OTHER ==
[2024-11-25 19:40] VITALS: TEMP 97.9
--- NOTE | 2024-11-25 20:57 | ED ---
SOB HPI - General Chief Complaint: Shortness of Breath Stated Complaint: ART cough Time Seen by Provider: 11/25/24 20:54 Source: patient, RN notes reviewed Mode of arrival: ambulatory Limitations: no limitations - History of Present Illness Initial Comments: 39-year-old male sent from urgent care for concerns of heart failure on chest x- ray findings. Patient states he has been experiencing nasal congestion and cough over the past week. He does report shortness of breath with exertion. Denies chest pain, swelling in the extremities. States he received a breathing treatment and steroid injection at urgent care however they reported he had pulmonary vascular congestion on the chest x-ray which was concerning for heart failure and sent him to the ER for further evaluation. States he does not have a history of heart failure. 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 Follows with Dr. Hayedn who he has an appointment with in 2 days. States he was hospitalized for pneumonia several months ago and believes he has not fully recovered from that. Denies history of asthma. He is a non-smoker. - Related Data Home Medications Medication Instructions Recorded Confirmed Betahistine (Unknown Dose) 1 tab PO TID 08/10/24 08/10/24 Seasonal Shield 2 cap PO BID 08/10/24 08/10/24 Triamterene/Hydrochlorothiazid 1 tab PO DAILY 08/10/24 08/10/24 [Triamterene-Hctz 37.5-25 mg Tb] Vitamin B Complex 1 cap PO DAILY 08/10/24 08/10/24 Previous Rx's Medication Instructions Recorded Famotidine [Pepcid] 20 mg PO BID tab 08/13/24 Loratadine-Pseudoeph 10-240 mg 1 tab PO HS #7 tab 08/14/24 [Claritin-D 24 Hour] Pseudoephedrine 12Hr [Sudafed 12 120 mg PO Q12HR tab 08/14/24 Hour] cefuroxime axetiL [Ceftin] 500 mg PO BID 7 Days #14 tab 08/14/24 predniSONE 10 mg PO DIRECTED #30 tab 08/14/24 predniSONE [Deltasone] 40 mg PO DAILY #10 tab 11/25/24 Allergies Allergy/AdvReac Type Severity Reaction Status Date / Time Penicillins Allergy Mild Rash/Hives Verified 11/25/24 19:40 Review of Systems ROS Statement: Those systems with pertinent positive or pertinent negative responses have been documented in the HPI. ROS Other: All systems not noted in ROS Statement are negative. Past Medical History Past Medical History: Dialysis, Pneumonia Additional Past Medical History / Comment(s): meniere's disease which contributes to vertigo and history of falls. 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 This caused the damage in his heart which lead to a pacemaker in 2001 with device change in 2007 ([facility]). Theorized by doctors HSP brought on by strep throat. Neurocardiac syncope. History of Any Multi-Drug Resistant Organisms: None Reported Past Surgical History: Pacemaker Additional Past Surgical History / Comment(s): pacemaker 2001 with device change in 2007 [facility]. (3 pacemaker surgeries), wisdom teeth extraction Past Anesthesia/Blood Transfusion Reactions: No Reported Reaction Additional Past Anesthesia/Blood Transfusion Reaction / Comment(s): no previous blood transfusions Type of Cardiac Device: Permanent Pacemaker Device Placement Date:: 09/2007 Past Psychological History: No Psychological Hx Reported Smoking Status: Never smoker Past Alcohol Use History: None Reported Past Drug Use History: None Reported - Past Family History Father Family Medical History: Diabetes Mellitus Brother(s) Family Medical History: Diabetes Mellitus Mother Family Medical History: Deep Vein Thrombosis (DVT) Sister(s) Family Medical History: Deep Vein Thrombosis (DVT) Additional Family Medical History / Comment(s): vtach, sister had cardiac ablation, all family snore, dad and whole side of family are diabetic, brother is prediabetic. General Exam Limitations: no limitations General appearance: alert, in no apparent distress Head exam: Present: atraumatic, normocephalic, normal inspection Eye exam: Present: normal appearance, PERRL, EOMI. Absent: scleral icterus, conjunctival injection, periorbital swelling ENT exam: Present: normal exam, normal oropharynx, mucous membranes moist Respiratory exam: Present: normal lung sounds bilaterally, wheezes (Inspiratory and expiratory wheezes in all lung [place] bilaterally). Absent: respiratory distress, rales, rhonchi, stridor Cardiovascular Exam: Present: regular rate, normal rhythm, normal heart sounds. Absent: systolic murmur, diastolic murmur, rubs, gallop, clicks Neurological exam: Present: alert, oriented X3 Psychiatric exam: Present: normal affect, normal mood Skin exam: Present: warm, dry, intact, normal color. Absent: rash Course Vital Signs 11/25/24 19:38 Temperature 97.9 F Pulse Rate 85 Respiratory 18 Rate Blood Pressure 131/82 O2 Sat by Pulse 97 Oximetry Medical Decision Making - Medical Decision Making Was pt. sent in by a medical professional or institution ([facility], TIEDOWN OPERATOR, urgent care, hospital, or custodial...) When possible be specific @ -Sent from urgent care for concern for heart failure on chest x-ray Did you speak to anyone other than the patient for history (EMS, parent, family, police, friend...)? What history was obtained from this source @ -No Did you review nursing and triage notes (agree or disagree)? Why? @ -I reviewed and agree with nursing and triage notes Were old charts reviewed (outside hosp., previous admission, EMS record, old EKG, old radiological studies, urgent care reports/EKG's, custodial records)? Report findings @ -No old charts were reviewed Differential Diagnosis (chest pain, altered mental status, abdominal pain women, abdominal pain men, vaginal bleeding, weakness, fever, dyspnea, syncope, headache, dizziness, GI bleed, back pain, seizure, CVA, palpatations, mental health, musculoskeletal)? @ -Differential Dyspnea: CHF, coronary syndrome, arrhythmia, tamponade, asthma, COPD, pulmonary embolism, pneumonia, pneumothorax, pulmonary effusion, anaphylaxis, diabetic ketoacidosis, flailed chest, pulmonary contusion, diaphragmatic rupture, anemia, neuromuscular, this is not meant to be an all-inclusive list. EKG interpreted by me (3pts min.). @ -As above X-rays interpreted by me (1pt min.). @ -Chest x-ray reveals no acute cardiopulmonary process CT interpreted by me (1pt min.). @ -None done U/S interpreted by me (1pt. min.). @ -None done What testing was considered but not performed or refused? (CT, X-rays, U/S, labs)? Why? @ -None What meds were considered but not given or refused? Why? @ -None Did you discuss the management of the patient with other professionals (professionals i.e. [facility], TIEDOWN OPERATOR, lab, RT, psych nurse, social group worker, drill operator, teacher, home school liaison officer, case assembler)? Give summary @ -No Was smoking cessation discussed for >3mins.? @ -No Was critical care preformed (if so, how long)? @ -No Were there social determinants of health that impacted care today? How? (Homelessness, low income, unemployed, alcoholism, drug addiction, transp ortation, low edu. Level, literacy, decrease access to med. care, [facility], rehab)? @ -No Was there de-escalation of care discussed even if they declined (Discuss DNR or withdrawal of care, Hospice)? DNR status @ -No What co-morbidities impacted this encounter? (DM, HTN, Smoking, COPD, CAD, Cancer, CVA, ARF, Chemo, Hep., AIDS, mental health diagnosis, sleep apnea, morbid obesity)? @ -None Was patient admitted / discharged? Hospital course, mention meds given and route, prescriptions, significant lab abnormalities, going to OR and other pertinent info. @ - discharge. 39-year-old male presenting for cough x 1 week. Sent from urgent care due to pulmonary vascular congestion on chest x-ray. Denies extremity swelling or chest pain. Patient is well-appearing, no acute respiratory distress. Satting 97% on room air and afebrile. There are inspiratory and expiratory wheezes in all lung [place] bilaterally. Chest x-ray reveals no acute cardiopulmonary process. Lab work unremarkable. White blood cell count normal at 8, troponin undetectable, BNP within acceptable limits. Discussed with patient that there are no signs of congestive heart failure on evaluation today. Discussed diagnosis of acute bronchitis. As patient received breathing treatment and steroid injection in urgent care, I will provide outpatient prescription for steroids to begin tomorrow. Appropriate return precautions and supportive care/follow-up care discussed with patient. Case was discussed with my ED attending Dr. Estevez. Undiagnosed new problem with uncertain prognosis? @ -No Drug Therapy requiring intensive monitoring for toxicity (Heparin, Nitro, Insulin, Cardizem)? @ -No Were any procedures done? @ -No Diagnosis/symptom? @ -Acute bronchitis Acute, or Chronic, or Acute on Chronic? @ -Acute Uncomplicated (without systemic symptoms) or Complicated (systemic symptoms)? @ -Uncomplicated Side effects of treatment? @ -No Exacerbation, Progression, or Severe Exacerbation? @ -No Poses a threat to life or bodily function? How? (Chest pain, [place], [place], pneumonia, PE, COPD, DKA, ARF, appy, cholecystitis, CVA, Diverticulitis, Homicidal, Suicidal, threat to staff... and all critical care pts) @ -No - Lab Data Result diagrams: 11/25/24 21:50 11/25/24 21:50 Lab Results 11/25/24 11/25/24 11/25/24 Range/Units 21:50 21:50 21:50 WBC 8.35 (4.50-10.00) 10*3/uL RBC 5.22 (4.40-5.60) 10*6/uL Hgb 15.8 (13.0-17.0) g/dL Hct 44.1 (39.6-50.0) % MCV 84.5 (80.0-97.0) fL MCH 30.3 (27.0-32.0) pg MCHC 35.8 (32.0-37.0) g/dL Plt Count 177 (140-440) 10*3/uL MPV 10.1 (9.5-12.2) fL Immature Gran % (Auto) 0.8 % Neutrophils % 86.2 % Lymphocytes % 8.6 % Monocytes % 3.4 % Eosinophils % 0.6 % Basophils % 0.4 % Immature Gran # 0.07 H (0.00-0.04) 10*3/uL Neutrophils # 7.20 (1.80-7.70) 10*3/uL Lymphocytes # 0.72 L (0.90-5.00) 10*3/uL Monocytes # 0.28 (0.20-1.00) 10*3/uL Eosinophils # 0.05 (0.04-0.35) 10*3/uL Basophils # 0.03 (0.00-0.10) 10*3/uL Sodium 135 L (137-145) mmol/L Potassium 4.1 (3.5-5.1) mmol/L Chloride 98 (98-107) mmol/L Carbon Dioxide 26 (22-30) mmol/L Anion Gap 11 mmol/L BUN 17 (9-20) mg/dL Creatinine 0.72 (0.66-1.25) mg/dL Est GFR (CKD-EPI)AfAm >90 (>60 ml/min/1.73 sqM) Est GFR (CKD-EPI)NonAf >90 (>60 ml/min/1.73 sqM) Glucose 142 H (74-99) mg/dL Calcium 9.8 (8.4-10.2) mg/dL Total Bilirubin 0.9 (0.2-1.3) mg/dL AST 28 (17-59) U/L ALT 35 (4-49) U/L Alkaline Phosphatase 52 (38-126) U/L Troponin I <0.012 (0.000-0.034) ng/mL NT-Pro-B Natriuret Pep 20 pg/mL Total Protein 7.3 (6.3-8.2) g/dL Albumin 4.3 (3.5-5.0) g/dL Influenza Type A (PCR) (Not Detectd) Influenza Type B (PCR) (Not Detectd) RSV (PCR) (Not Detectd) SARS-CoV-2 (PCR) (Not Detectd) 11/25/24 Range/Units 21:50 WBC (4.50-10.00) 10*3/uL RBC (4.40-5.60) 10*6/uL Hgb (13.0-17.0) g/dL Hct (39.6-50.0) % MCV (80.0-97.0) fL MCH (27.0-32.0) pg MCHC (32.0-37.0) g/dL Plt Count (140-440) 10*3/uL MPV (9.5-12.2) fL Immature Gran % (Auto) % Neutrophils % % Lymphocytes % % Monocytes % % Eosinophils % % Basophils % % Immature Gran # (0.00-0.04) 10*3/uL Neutrophils # (1.80-7.70) 10*3/uL Lymphocytes # (0.90-5.00) 10*3/uL Monocytes # (0.20-1.00) 10*3/uL Eosinophils # (0.04-0.35) 10*3/uL Basophils # (0.00-0.10) 10*3/uL Sodium (137-145) mmol/L Potassium (3.5-5.1) mmol/L Chloride (98-107) mmol/L Carbon Dioxide (22-30) mmol/L Anion Gap mmol/L BUN (9-20) mg/dL Creatinine (0.66-1.25) mg/dL Est GFR (CKD-EPI)AfAm (>60 ml/min/1.73 sqM) Est GFR (CKD-EPI)NonAf (>60 ml/min/1.73 sqM) Glucose (74-99) mg/dL Calcium (8.4-10.2) mg/dL Total Bilirubin (0.2-1.3) mg/dL AST (17-59) U/L ALT (4-49) U/L Alkaline Phosphatase (38-126) U/L Troponin I (0.000-0.034) ng/mL NT-Pro-B Natriuret Pep pg/mL Total Protein (6.3-8.2) g/dL Albumin (3.5-5.0) g/dL Influenza Type A (PCR) Not Detected (Not Detectd) Influenza Type B (PCR) Not Detected (Not Detectd) RSV (PCR) Not Detected (Not Detectd) SARS-CoV-2 (PCR) Not Detected (Not Detectd) - EKG Data -: EKG Interpreted by Or EKG Comments: EKG revealed normal sinus rhythm with no acute ST changes, nonspecific T wave abnormality similar to previous EKGs. Ventricular rate 89 bpm, parable 180, QRS duration 106, QT/QTc 346/393 Disposition Clinical Impression: Acute bronchitis Disposition: HOME SELF-CARE Condition: Stable Instructions (If sedation given, give patient instructions): Acute Bronchitis (ED) Additional Instructions: Start steroid course tomorrow. Use albuterol inhaler as needed for shortness of breath and wheezing. Please return to the Emergency Department if symptoms worsen or any other concerns. Prescriptions: predniSONE [Deltasone] 40 mg PO DAILY #10 tab Is patient prescribed a controlled substance at d/c from ED?: No Referrals: Jose Farooq DO [Primary Care Provider] - 1-2 days Time of Disposition: 23:20
--- NOTE | 2024-11-25 21:07 | XR ---
EXAMINATION TYPE: XR chest 2V DATE OF EXAM: 11/25/2024 8:59 PM COMPARISON: Prior chest radiograph 08/30/2024. CLINICAL INDICATION: Male, 39 years old with history of cough x 1 week; [facility] TECHNIQUE: XR chest 2V Frontal and lateral views of the chest. FINDINGS: Lungs/Pleura: There is no evidence of pleural effusion, focal consolidation, or pneumothorax. Pulmonary vascularity: Unremarkable. Heart/mediastinum: Cardiomediastinal silhouette is unremarkable. Left chest wall cardiac pacemaker d evice. Musculoskeletal: No acute osseous pathology. Other findings: None IMPRESSION: No acute cardiopulmonary disease/process. [facility], , 11/25/2024 9:04 PM
[2024-11-25 22:05] LABS: Basophils # (A) 0.03 10*3/uL (0.00-0.10); Basophils % (A) 0.4 %; Eosinophils # (A) 0.05 10*3/uL (0.04-0.35); Eosinophils % (A) 0.6 %; HCT 44.1 % (39.6-50.0); HGB 15.8 g/dL (13.0-17.0); Lymphocytes # (A) 0.72 10*3/uL (0.90-5.00); Lymphocytes % (A) 8.6 %; MCH 30.3 pg (27.0-32.0); MCHC 35.8 g/dL (32.0-37.0); MCV 84.5 fL (80.0-97.0); Mean Platelet Volume 10.1 fL (9.5-12.2); Monocytes # (A) 0.28 10*3/uL (0.20-1.00); Monocytes % (A) 3.4 %; Neutrophils % (A) 86.2 %; Platelet Count 177 10*3/uL (140-440); RBC 5.22 10*6/uL (4.40-5.60); RDW 12.9 % (11.5-14.5); WBC 8.35 10*3/uL (4.50-10.00)
[2024-11-25 22:23] LABS: ALT 35 U/L (4-49); AST 28 U/L (17-59); African American GFR (CKD) >90 (>60 ml/min/1.73 sqM); Albumin 4.3 g/dL (3.5-5.0); Alkaline Phosphatase 52 U/L (38-126); Anion Gap 11 mmol/L; Blood Urea Nitrogen 17 mg/dL (9-20); Calcium 9.8 mg/dL (8.4-10.2); Carbon Dioxide 26 mmol/L (22-30); Chloride 98 mmol/L (98-107); Glucose 142 mg/dL (74-99); Non-African American GFR(CKD) >90 (>60 ml/min/1.73 sqM); Potassium 4.1 mmol/L (3.5-5.1); Sodium 135 mmol/L (137-145); Total Bilirubin 0.9 mg/dL (0.2-1.3); Total Protein 7.3 g/dL (6.3-8.2)
[2024-11-25 22:32] LABS: NT-Pro-B-Type Natriuretic Pept 20 pg/mL
[2024-11-25 23:05] LABS: Influenza A Not Detected (Not Detectd); Influenza B Not Detected (Not Detectd); RSV Not Detected (Not Detectd)
[2024-11-25 23:37] VITALS: BP 130/74; PULSE 87; RESP 16
== END 2024-11-25 23:37 | disposition home or self-care (01) ==
LOC: EC 19:36
DX: J20.9 Acute bronchitis, unspecified (principal); Z88.0 Allergy status to penicillin
CPT/HCPCS: 36415; 71046; 80053; 83880; 84484; 85025; 87636; 93005; 99285

== ENCOUNTER → 2024-12-27 | Outpatient (CLI) | payer OTHER ==
[2024-12-27 14:20] VITALS: BP 128/79; PULSE 82; RESP 82; TEMP 97.8
--- NOTE | 2024-12-27 14:58 | P.PROGSL ---
Subjective DATE: 12/27/2024 FOLLOW UP VISIT. Patient with obstructive sleep apnea hypopnea syndrome return to sleep center for follow-up visit. Recently patient had sleep study which documented obstructive sleep apnea hypopnea syndrome. Patient was initiated on PAP therapy and today is first visit after treatment was started. Patient was able to use PAP equipment every night for the whole night for about a month, but then developed pneumonia and bronchitis 10 had significant difficulties to use CPAP equipment. The patient does not have significant problems with the mask, PAP pressure and humidification. [place] sleepiness scale is 6, which is in normal range. I checked information from PAP unit. PAP unit pressure 5-14, average 8.9 cm H2O. Usage is 42% and 7% for more then 4 hours, average 2 hours per night for the last months. Leak is 0.3 l/m, which is in acceptable range. Apnea Hypopnea Index is 0.3, which is normal. MEDICATIONS: Please see below. During physical exam: GENERAL: A pleasant patient without any distress. VITAL SIGNS: Please see below, weight 276 pounds. HEENT: PERRLA, EOMI.low position of soft palate, [place] 4 . NECK: Supple. No JVD. LUNGS: Clear to percussion and to auscultation. Good air exchange. No wheezing or rhonchi. HEART: S1, S2 regular. ABDOMEN: Soft and nontender. Slightly obese EXTREMITIES: No clubbing or cyanosis. SHIRT SEWER: Awake, alert, and oriented x3. No focal deficit. Impressions: 1. Moderate obstructive sleep apnea-hypopnea syndrome, apnea hypopnea index during the home test 25.9. Patient used CPAP every night during the first months, but then developed bronchitis and was not able to use machine well. Apnea-hypopnea index reading from the machine normal 0.3. 2. Obesity. 3. History of bronchitis and pneumonia. 4. History of cardiac arrhythmia. 5. History of neurocardiac syncope. 6. Status post permanent pacemaker insertion. 7. History of [place] disease. 8. History of vertigo episodes. Plan: 1. Continue using PAP equipment every night for the whole night. We will extend trial period for another 90 days. 2. To change air filter at least 1-2 times per month. 3. PAP unit should stay lower then position of the head. 4. Advised patient to remove all remaining water from humidifier canister daily and make it dry after each usage. Refill canister with fresh distilled water before each usage. 5. Sleep hygiene with regular time in bed for at least 8 hours. 6. Precautions related to driving. No driving if feel any sleepiness. 7. I will maintain prescription for PAP supplies including mask, tube, filters. 8. Follow up visit in 6 months or earlier if patient has any problems. 9. Watching and losing weight. Thank you very much for allowing me to participate in the management of your patient. Romero Up MD, PhD, FAASM. Diplomat of [place] [employer], Sleep Medicine Board by [place] [employer] [facility] [place] Objective - Vital Signs Vital Signs: Vital Signs Temp 97.8 F 12/27/24 14:19 Pulse 82 12/27/24 14:19 Resp 82 H 12/27/24 14:19 BP 128/79 12/27/24 14:19 Pulse Ox 93 L 12/27/24 14:19 FiO2 Intake & Output 12/26/24 12/27/24 12/27/24 18:59 06:59 18:59 Weight 125.191 kg Home Medications: Home Medications Medication Instructions Recorded Confirmed Type Betahistine (Unknown Dose) 1 tab PO TID 08/10/24 08/10/24 History Seasonal Shield 2 cap PO BID 08/10/24 08/10/24 History Triamterene/Hydrochlorothiazid 1 tab PO DAILY 08/10/24 08/10/24 History [Triamterene-Hctz 37.5-25 mg Tb] Vitamin B Complex 1 cap PO DAILY 08/10/24 08/10/24 History Famotidine [Pepcid] 20 mg PO BID tab 08/13/24 Rx Loratadine-Pseudoeph 10-240 mg 1 tab PO HS #7 tab 08/14/24 Rx [Claritin-D 24 Hour] Pseudoephedrine 12Hr [Sudafed 12 120 mg PO Q12HR tab 08/14/24 Rx Hour] cefuroxime axetiL [Ceftin] 500 mg PO BID 7 Days #14 tab 08/14/24 Rx predniSONE 10 mg PO DIRECTED #30 tab 08/14/24 Rx predniSONE [Deltasone] 40 mg PO DAILY #10 tab 11/25/24 Rx
== END ==
LOC: 3 N SLEEP 13:58
PROVIDERS: ATTEND Internal Medicine
DX: G47.33 Obstructive sleep apnea (adult) (pediatric) (principal); E66.9 Obesity, unspecified; Z87.01 Personal history of pneumonia (recurrent); Z86.79 Personal history of other diseases of the circulatory system; Z98.890 Other specified postprocedural states; Z86.69 Personal history of other diseases of the nervous system and sense organs; Z99.89 Dependence on other enabling machines and devices
CPT/HCPCS: 99212

== ENCOUNTER 2024-12-31 19:33 | Emergency (ER) | payer OTHER ==
[2024-12-31 19:38] VITALS: RESP 18
--- NOTE | 2024-12-31 22:58 | ED ---
Recheck HPI - General Chief Complaint: Recheck/Abnormal Lab/Rx Stated Complaint: Electricuted Time Seen by Provider: 12/31/24 22:28 Source: patient, RN notes reviewed, old records reviewed Mode of arrival: ambulatory Limitations: no limitations - History of Present Illness Initial Comments: This is a 39-year-old male to the ER for evaluation. Patient states he was electrocuted while plugging and when changing out his washer and dryer today. Right arm right hand and he does have a pacemaker with concern for pacemaker issue. Patient states pacemaker was placed secondary to bradycardia and syncopal events has felt numbness and tingling in the right hand throughout the day some muscle ache and spasm but no other complaints MD Complaint: other (Pacemaker interrogation) -: hour(s) Symptoms Since Prior Visit: no new symptoms Context: planned re-check Associated Symptoms: none - Related Data Home Medications Medication Instructions Recorded Confirmed Betahistine (Unknown Dose) 1 tab PO TID 08/10/24 08/10/24 Seasonal Shield 2 cap PO BID 08/10/24 08/10/24 Triamterene/Hydrochlorothiazid 1 tab PO DAILY 08/10/24 08/10/24 [Triamterene-Hctz 37.5-25 mg Tb] Vitamin B Complex 1 cap PO DAILY 08/10/24 08/10/24 Previous Rx's Medication Instructions Recorded Famotidine [Pepcid] 20 mg PO BID tab 08/13/24 Loratadine-Pseudoeph 10-240 mg 1 tab PO HS #7 tab 08/14/24 [Claritin-D 24 Hour] Pseudoephedrine 12Hr [Sudafed 12 120 mg PO Q12HR tab 08/14/24 Hour] cefuroxime axetiL [Ceftin] 500 mg PO BID 7 Days #14 tab 08/14/24 predniSONE 10 mg PO DIRECTED #30 tab 08/14/24 predniSONE [Deltasone] 40 mg PO DAILY #10 tab 11/25/24 Allergies Allergy/AdvReac Type Severity Reaction Status Date / Time Penicillins Allergy Mild Rash/Hives Verified 11/25/24 19:40 Review of Systems ROS Statement: Those systems with pertinent positive or pertinent negative responses have been documented in the HPI. ROS Other: All systems not noted in ROS Statement are negative. Past Medical History Past Medical History: Dialysis, Pneumonia Additional Past Medical History / Comment(s): meniere's disease which contributes to vertigo and history of falls. 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 This caused the damage in his heart which lead to a pacemaker in 2001 with device change in 2007 ([facility]). Theorized by doctors HSP brought on by strep throat. Neurocardiac syncope. History of Any Multi-Drug Resistant Organisms: None Reported Past Surgical History: Pacemaker Additional Past Surgical History / Comment(s): pacemaker 2001 with device change in 2007 [facility]. (3 pacemaker surgeries), wisdom teeth extraction Past Anesthesia/Blood Transfusion Reactions: No Reported Reaction Additional Past Anesthesia/Blood Transfusion Reaction / Comment(s): no previous blood transfusions Type of Cardiac Device: Permanent Pacemaker Device Placement Date:: 09/2007 Past Psychological History: No Psychological Hx Reported Smoking Status: Never smoker Past Alcohol Use History: None Reported Past Drug Use History: None Reported - Past Family History Father Family Medical History: Diabetes Mellitus Brother(s) Family Medical History: Diabetes Mellitus Mother Family Medical History: Deep Vein Thrombosis (DVT) Sister(s) Family Medical History: Deep Vein Thrombosis (DVT) Additional Family Medical History / Comment(s): vtach, sister had cardiac ablation, all family snore, dad and whole side of family are diabetic, brother is prediabetic. General Exam General appearance: alert, in no apparent distress Head exam: Present: atraumatic, normocephalic, normal inspection Eye exam: Present: normal appearance, PERRL, EOMI. Absent: scleral icterus, conjunctival injection, periorbital swelling ENT exam: Present: normal exam, mucous membranes moist Neck exam: Present: normal inspection. Absent: tenderness, meningismus, lymphadenopathy Respiratory exam: Present: normal lung sounds bilaterally. Absent: respiratory distress, wheezes, rales, rhonchi, stridor Cardiovascular Exam: Present: regular rate, normal rhythm, normal heart sounds. Absent: systolic murmur, diastolic murmur, rubs, gallop, clicks GI/Abdominal exam: Present: soft, normal bowel sounds. Absent: distended, tenderness, guarding, rebound, rigid Extremities exam: Present: normal inspection, full ROM, normal capillary refill. Absent: tenderness, pedal edema, joint swelling, calf tenderness Back exam: Present: normal inspection Neurological exam: Present: alert, oriented X3, CN II-XII intact Psychiatric exam: Present: normal affect, normal mood Skin exam: Present: warm, dry, intact, normal color. Absent: rash Course Vital Signs 12/31/24 12/31/24 19:34 23:24 Temperature 97.9 F 98.0 F Pulse Rate 81 63 Respiratory 18 18 Rate Blood Pressure 158/87 117/78 O2 Sat by Pulse 94 L 95 Oximetry - Reevaluation(s) Reevaluation #1: 01/01/25 00:04 Medical records reviewed Reevaluation #2: 01/01/25 00:04 Patient remains asymptomatic 01/01/25 00:04 Pacemaker is interrogated here in the emergency department negative report provided to patient to follow-up with manager of employee relations Reevaluation #3: 01/01/25 00:04 Patient informed of results and questions answered Reevaluation #4: Was pt. sent in by a medical professional or institution (, PA, ACCESS SERVICES LIBRARIAN, urgent care, hospital, or senior living...) When possible be specific @ -no Did you speak to anyone other than the patient for history (EMS, parent, family, police, friend...)? What history was obtained from this source @ -no Did you review nursing and triage notes (agree or disagree)? Why? @ -agree Are old charts reviewed (outside hosp., previous admission, EMS record, old EKG, old radiological studies, urgent care reports/EKG's, senior living records)? Report findings @ -yes Differential Diagnosis (chest pain, altered mental status, abdominal pain women, abdominal pain men, vaginal bleeding, weakness, fever, dyspnea, syncope, headac he, dizziness, GI bleed, back pain, seizure, CVA, palpatations, mental health, musculoskeletal)? @ -prior EKG interpreted by me (3pts min.). @ -yes X-rays interpreted by me (1pt min.). @ -yes negative for acute disease CT interpreted by me (1pt min.). @ -no U/S interpreted by me (1pt. min.). @ -no What testing was considered but not performed or refused? (CT, X-rays, U/S, labs)? Why? @ -none What meds were considered but not given or refused? Why? @ -none Did you discuss the management of the patient with other professionals (professionals i.e. , PA, ACCESS SERVICES LIBRARIAN, lab, RT, psych nurse, social welfare research worker, supervisor finishing room, teacher, officer lieutenant, supervisor case loading)? Give summary @ -no Was smoking cessation discussed for >3mins.? @ -no Was critical care preformed (if so, how long)? @ -no Were there social determinants of health that impacted care today? How? (Homelessness, low income, unemployed, alcoholism, drug addiction, transportation, low edu. Level, literacy, decrease access to med. care, [facility], rehab)? @ -none Was there de-escalation of care discussed even if they declined (Discuss DNR or withdrawal of care, Hospice)? DNR status @ -no What co-morbidities impacted this encounter? (DM, HTN, Smoking, COPD, CAD, Cancer, CVA, ARF, Chemo, Hep., AIDS, mental health diagnosis, sleep apnea, morbid obesity)? @ -none Was patient admitted / discharged? Hospital course, mention meds given and rout e, prescriptions, significant lab abnormalities, going to OR and other pertinent info. @ - Undiagnosed new problem with uncertain prognosis? @ -no Drug Therapy requiring intensive monitoring for toxicity (Heparin, Nitro, Insulin, Cardizem)? @ -no Were any procedures done? @ -no Diagnosis/symptom? @ - Acute, or Chronic, or Acute on Chronic? @ -Acute Uncomplicated (without systemic symptoms) or Complicated (systemic symptoms)? @ -Complicated Side effects of treatment? @ -no Exacerbation, Progression, or Severe Exacerbation? @ -exacerbation Poses a threat to life or bodily function? How? (Chest pain, USA, NV, pneumonia, PE, COPD, DKA, ARF, appy, cholecystitis, CVA, Diverticulitis, Homicidal, Suicidal, threat to staff... and all critical care pts) @ -yes Reevaluation #5: Differential Palpitations Ventricular arrhythmias, atrial arrhythmias, myocardial infarction, anemia, thyrotoxicosis, electrolyte imbalance, hypokalemia, pulmonary embolism, pulmonary disease, drugs, alcohol, anxiety, stress.... This is not meant to be an all-inclusive list. Medical Decision Making - Medical Decision Making 39 male to ER for evaluation, needing pacemaker interrogation secondary to recent electrocution. Patient patient was interrogated here in the ER is asymptomatic EKG is normal patient can be discharged home - EKG Data -: EKG Interpreted by Me (EKG is sinus 83 [place] 194 QRS 105 QTc 378) Disposition Clinical Impression: Electrocution Disposition: HOME SELF-CARE Condition: Good Instructions (If sedation given, give patient instructions): Electrical Solomon in Adults (ED), Pacemaker (DC) Is patient prescribed a controlled substance at d/c from ED?: No Referrals: Jose Farooq DO [Primary Care Provider] - 1-2 days Time of Disposition: 23:00
[2024-12-31 23:55] VITALS: BP 117/78; PULSE 63; TEMP 98
== END 2025-01-01 00:43 | disposition home or self-care (01) ==
LOC: EC 19:33
DX: T75.4XXA Electrocution, initial encounter (principal); Z88.0 Allergy status to penicillin; W86.8XXA Exposure to other electric current, initial encounter
CPT/HCPCS: 93005; 99283